=== PATIENT | male | born 1950 | race Caucasian/White ===

== ENCOUNTER 2016-07-30 09:40 | Outpatient (CLI) | payer MEDICARE, OTHER | END 2016-07-30 09:41 | DX: K74.60 Unspecified cirrhosis of liver (principal) ==

== ENCOUNTER 2016-08-14 10:53 | Outpatient (CLI) | payer MEDICARE, OTHER | END 2016-08-14 10:54 | disposition home or self-care (01) | DX: K70.30 Alcoholic cirrhosis of liver without ascites (principal); E78.9 Disorder of lipoprotein metabolism, unspecified; I10 Essential (primary) hypertension ==

== ENCOUNTER 2016-08-15 17:01 | Outpatient (CLI) | payer MEDICARE, OTHER ==
[2016-08-15] MEDS ORDERED: IOPAMIDOL-300 100 ML VIAL IVP ONE (17:58)
[2016-08-15] MEDS ORDERED: IOPAMIDOL-300 50 ML VIAL PO ONE (17:58)
== END 2016-08-15 17:02 | disposition home or self-care (01) ==
DX: K70.30 Alcoholic cirrhosis of liver without ascites (principal); R16.1 Splenomegaly, not elsewhere classified; K80.20 Calculus of gallbladder without cholecystitis without obstruction; K55.1 Chronic vascular disorders of intestine
CPT/HCPCS: 74178; Q9967

== ENCOUNTER 2016-10-29 07:54 | Outpatient (CLI) | payer MEDICARE, OTHER ==
[2016-10-29 12:48] LABS: INR 1.7 (0.8-1.2); PT - PROTHROMBIN TIME 18.7 secs (9.9-12.6)
[2016-10-29 12:57] LABS: BASOPHILS % (AUTO) 0.8 %; EOSINOPHILS % (AUTO) 2.3 %; HCT - HEMATOCRIT 33.4 % (42.0-52.0); HGB - HEMOGLOBIN 10.8 g/dL (14.0-18.0); LYMPHOCYTES % (AUTO) 23.8 %; MEAN CORPUSCULAR HEMOGLOBIN 23.4 pg (27.0-31.0); MEAN CORPUSCULAR HGB CONC 32.2 g/dL (32.0-36.0); MEAN CORPUSCULAR VOLUME 72.8 fL (80.0-94.0); MEAN PLATELET VOLUME 8.1 fL (7.4-11.4); MONOCYTES % (AUTO) 6.6 %; NEUTROPHILS % (AUTO) 66.5 %; RED BLOOD COUNT 4.59 10^6/uL (4.70-6.10); RED CELL DISTRIBUTION WIDTH 31.5 % (12.0-15.0); UNCORRECTED WHITE BLOOD COUNT 2.8 x10^3/uL; WHITE BLOOD COUNT 2.8 x10^3/uL (4.8-10.8)
[2016-10-29 13:33] LABS: ALBUMIN/GLOBULIN RATIO 0.8 (1.0-2.2); BILIRUBIN,TOTAL 3.7 mg/dL (0.2-1.0); BUN - BLOOD UREA NITROGEN 7 mg/dL (6-20); CALCIUM 8.4 mg/dL (8.5-10.3); CARBON DIOXIDE - CO2 24 mmol/L (21-32); CHLORIDE 105 mmol/L (101-111); CHOL/HDL RATIO 4.3 (<5.0); CHOLESTEROL 115 mg/dL; CREATININE 0.7 mg/dL (0.6-1.2); GFR - MDRD 114 (>89); GLUCOSE 90 mg/dL (70-100); HDL CHOLESTEROL 27 mg/dL; LDL/HDL RATIO 2.7 (<3.6); POTASSIUM 2.8 mmol/L (3.5-5.0); SODIUM 136 mmol/L (135-145); TOTAL PROTEIN 6.2 g/dL (6.7-8.2); TRIGLYCERIDES 73 mg/dL; VLDL CHOLESTEROL 15 mg/dL
[2016-10-29 14:23] LABS: BAND NEUTROPHILS % (MANUAL) 1 %; LYMPHOCYTES % (MANUAL) 22 %; NEUTROPHILS % (MANUAL) 77 %; TOTAL CELLS COUNTED 100
[2016-10-29 14:27] LABS: NP AUTO DIFFERENTIAL? YES; NP MAN DIFFERENTIAL? NO; PLATELET ESTIMATE, MANUAL DECREASED (<130,000) (NORMAL); PLATELET MORPHOLOGY NORMAL APPEARANCE (NORMAL)
== END 2016-10-29 07:55 | disposition home or self-care (01) ==
LOC: LAB.WCP 07:54
PROVIDERS: ATTEND Physician Assistant Medical
DX: K70.30 Alcoholic cirrhosis of liver without ascites (principal)
CPT/HCPCS: 36415; 80053; 80061; 82140; 85025; 85610

== ENCOUNTER 2016-11-12 15:35 | Outpatient (CLI) | payer MEDICARE, OTHER | END 2016-11-12 15:36 | disposition home or self-care (01) | LOC: LAB 15:35 | PROVIDERS: ATTEND Physician Assistant Medical | DX: K70.30 Alcoholic cirrhosis of liver without ascites (principal) | CPT/HCPCS: 36415; 82140 ==

== ENCOUNTER 2016-12-30 14:15 | Outpatient (CLI) | payer MEDICARE, OTHER ==
[2016-12-30 20:04] LABS: ALBUMIN/GLOBULIN RATIO 0.8 (1.0-2.2); BILIRUBIN,TOTAL 2.7 mg/dL (0.2-1.0); CALCIUM 8.5 mg/dL (8.5-10.3); CREATININE 0.8 mg/dL (0.6-1.2); POTASSIUM 4.2 mmol/L (3.5-5.0); TOTAL PROTEIN 5.9 g/dL (6.7-8.2)
== END 2016-12-30 14:16 | disposition home or self-care (01) ==
LOC: LAB.WCP 14:15
PROVIDERS: ATTEND Physician Assistant Medical
DX: K70.30 Alcoholic cirrhosis of liver without ascites (principal)
CPT/HCPCS: 36415; 80053

== ENCOUNTER 2017-01-01 10:28 | Day surgery (SDC) | payer MEDICARE, OTHER ==
[~2017-01-01 10:28] MED LIST: CYCLOPENTOLATE 1% OPHTH DROPS 2 ML ONE; KETOROLAC 0.45% OPHTH DROPS ONE; PHENYLEPHRINE 2.5% OPHTH 2 ML DROPS ONE; PROPARACAINE 0.5% OPHTH DROPS 15 ML ONE
[2017-01-01] MEDS ORDERED: CYCLOPENTOLATE 1% OPHTH DROPS 2 ML OPTH ONE (11:35)
[2017-01-01] MEDS ORDERED: PHENYLEPHRINE 2.5% OPHTH 2 ML DROPS OPTH ONE (11:35)
[2017-01-01] MEDS ORDERED: KETOROLAC 0.45% OPHTH DROPS OPTH ONE (11:35)
[2017-01-01] MEDS ORDERED: PROPARACAINE 0.5% OPHTH DROPS 15 ML OPTH ONE ×2 (11:35→12:10)
[2017-01-01] MEDS ORDERED: LACTATED RINGERS 500 ML IV ONE (11:36)
[2017-01-01] MEDS ORDERED: CHONDR SULF/HYALURONATE SYRINGE IO ONE (12:20)
[2017-01-01] MEDS ORDERED: MIDAZOLAM 2 MG/2 ML VIAL IVP ONE (12:20)
[2017-01-01] MEDS ORDERED: TIMOLOL 0.5% OPHTH DROPS OPTH ONE (12:20)
[2017-01-01] MEDS ORDERED: EPINEPHrine 1 MG/ML AMP IVP ONE (12:20)
[2017-01-01] MEDS ORDERED: BRIMONIDINE 0.2% OPHTH DROPS 5 ML OPTH ONE (12:20)
[2017-01-01] MEDS ORDERED: TRIAMCIN/MOXIFLOX/VANCO 1 ML VIAL IO ONE (12:21)
[2017-01-01] MEDS ORDERED: BSS/LIDOCAINE/EPINEPHRINE 1 ML SYRINGE IO ONE ×2 (12:21)
--- NOTE | 2017-01-01 12:52 | OPERATIVE REPORT ---
DATE OF SURGERY: 01/01/2017 00:00:00 PREOPERATIVE DIAGNOSIS: Visually significant cataract, right eye. This was his first cataract surgery. POSTOPERATIVE DIAGNOSIS: Visually significant cataract, right eye. This was his first cataract surgery. NAME OF PROCEDURE: Phacoemulsification with posterior chamber intraocular lens implant, right eye. SURGEON: Terrance Wallace MD ANESTHESIA: Monitored anesthesia care. COMPLICATIONS: None. OPERATIVE INDICATIONS: This is a 66-year-old man with progressive vision loss in the right eye due to 4+ nuclear sclerotic cataract. Best corrected visual acuity was 20/50 with glare to 20/250 in the right eye. 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 He was consented at length concerning the risks and benefits of cataract surgery after which he expressed a desire to proceed with surgery. OPERATIVE PROCEDURE: The patient was taken into OR #2 and placed under monitored anesthesia care. A surgical time-out was conducted confirming correct patient, correct procedure and correct surgical site. He was given topical anesthesia and then prepped and draped in the usual sterile fashion. The eye was entered at the 12 and 9 o'clock positions. Intracameral Shugarcaine was injected into the anterior chamber followed by Viscoat. A continuous tear curvilinear capsulorrhexis was performed. The nucleus was hydrodissected and phacoemulsified. This was a very hard nucleus and a lot of chopping and phaco power was required to break it up. Cortex was evacuated using automated infusion and aspiration. Provisc was injected into the capsular bag and a 19.0 diopter intraocular lens was inserted into the bag. Approximately 0.8 mL of a mixture of triamcinolone, moxifloxacin and vancomycin was injected subconjunctivally in the superior quadrant for infection and inflammation prophylaxis. I/A was used to evacuate the viscoelastic materials. The eye was inflated to physiologic pressure using balanced salt solution and found to be watertight. The patient was taken from the operating room in good condition and given postoperative instructions. JOB #: [id number] EXT JOB #:[id number] MTDDinah
[2017-01-01 13:05] VITALS: BP 137/57
== END 2017-01-01 10:29 | disposition home or self-care (01) ==
LOC: SDS 10:28
PROVIDERS: ATTEND Ophthalmology
PROC: 08RJ3JZ Replacement of Right Lens with Synthetic Substitute, Percutaneous Approach (ICD-10-PCS; principal; 2017-01-01 11:30)
DX: H25.11 Age-related nuclear cataract, right eye (principal); I10 Essential (primary) hypertension
CPT/HCPCS: 66984; A9270; J3490; V2632

== ENCOUNTER 2017-01-22 08:08 | Day surgery (SDC) | payer MEDICARE, OTHER ==
[2017-01-22] MEDS ORDERED: PROPARACAINE 0.5% OPHTH DROPS 15 ML OPTH ONE ×2 (08:30→08:54)
[2017-01-22] MEDS ORDERED: KETOROLAC 0.45% OPHTH DROPS OPTH ONE (08:30)
[2017-01-22] MEDS ORDERED: PHENYLEPHRINE 2.5% OPHTH 2 ML DROPS OPTH ONE (08:30)
[2017-01-22] MEDS ORDERED: CYCLOPENTOLATE 1% OPHTH DROPS 2 ML OPTH ONE (08:30)
[2017-01-22] MEDS ORDERED: LACTATED RINGERS 500 ML IV ONE (08:35)
[2017-01-22] MEDS ORDERED: EPINEPHrine 1 MG/ML AMP IVP ONE (08:53)
[2017-01-22] MEDS ORDERED: BRIMONIDINE 0.2% OPHTH DROPS 5 ML OPTH ONE (08:53)
[2017-01-22] MEDS ORDERED: CHONDR SULF/HYALURONATE SYRINGE IO ONE (08:54)
[2017-01-22] MEDS ORDERED: TIMOLOL 0.5% OPHTH DROPS OPTH ONE (08:54)
[2017-01-22] MEDS ORDERED: TRIAMCIN/MOXIFLOX/VANCO 1 ML VIAL IO ONE ×2 (08:54)
[2017-01-22] MEDS ORDERED: BSS/LIDOCAINE/EPINEPHRINE 1 ML SYRINGE IO ONE ×2 (08:54)
[2017-01-22] MEDS ORDERED: MIDAZOLAM 2 MG/2 ML VIAL IVP ONE (08:55)
[2017-01-22 09:35] VITALS: BP 117/46
--- NOTE | 2017-01-22 09:46 | OPERATIVE REPORT ---
DATE OF SURGERY: 01/22/2017 00:00:00 PREOPERATIVE DIAGNOSIS: Visually significant cataract, left eye. Cataract surgery was performed on the right eye on 01/01/2017. POSTOPERATIVE DIAGNOSIS: Visually significant cataract, left eye. Cataract surgery was performed on the right eye on 01/01/2017. NAME OF PROCEDURE: Phacoemulsification posterior chamber intraocular lens implant, left eye. SURGEON: Terrance Wallace MD. ANESTHESIA: Monitored anesthesia care. COMPLICATIONS: None. OPERATIVE INDICATIONS: This is a 67-year-old man with progressive vision loss in the left eye due to 4+ nuclear sclerotic cataract. Best corrected visual acuity was 20/70 with glare to 20/250 in the left eye. INDICATIONS FOR SURGERY: Overall decrease in vision, difficulty seeing words on a computer screen, difficulty reading, difficulty seeing words and game scores on TV, difficulty driving in low light or at night, difficulty driving at night because of head lights from motor vehicles and difficulty with glare or bright lights in any situation. He was consented at length concerning the risks and benefits of cataract surgery, after which he expressed a desire to proceed with surgery. OPERATIVE PROCEDURE: The patient was taken into OR #2 and placed under monitored anesthesia care. A surgical time-out was conducted confirming the correct patient, correct procedure and correct surgical site. He was given topical anesthesia and then prepped and draped in the usual sterile fashion. The eye was entered at the 6- and 3 o'clock positions. Intracameral Shugarcaine was injected into the anterior chamber followed by Viscoat. A continuous tear curvilinear capsulorrhexis was performed. The nucleus was hydrodissected and phacoemulsified. The cortex was evacuated using automated infusion and aspiration (I/A). Provisc was injected into the capsular bag and a 19.5 diopter intraocular lens inserted into the bag. Approximately 0.7 mL of a mixture of triamcinolone, moxifloxacin, and vancomycin was injected subconjunctivally in the superior quadrant for infection and inflammation prophylaxis. I/A was used to evacuate the viscoelastic materials. The eye was inflated to a physiologic pressure using balanced salt solution and found to be watertight. The patient was taken from the operating room in good condition and given postoperative instructions. JOB #: [id number] EXT JOB #:[id number] RONIT
== END 2017-01-22 08:09 | disposition home or self-care (01) ==
LOC: SDS 08:08
PROVIDERS: ATTEND Ophthalmology
PROC: 08RK3JZ Replacement of Left Lens with Synthetic Substitute, Percutaneous Approach (ICD-10-PCS; principal; 2017-01-22 08:30)
DX: H25.12 Age-related nuclear cataract, left eye (principal); K70.30 Alcoholic cirrhosis of liver without ascites
CPT/HCPCS: 66984; A9270; J3490; V2632

== ENCOUNTER 2017-01-22 09:41 | Outpatient (CLI) | payer MEDICARE, OTHER | END 2017-01-22 09:42 | disposition home or self-care (01) | LOC: LAB 09:41 | PROVIDERS: ATTEND Physician Assistant Medical | DX: K70.30 Alcoholic cirrhosis of liver without ascites (principal) | CPT/HCPCS: 36415; 82140 ==

== ENCOUNTER 2017-01-23 11:46 | Outpatient (CLI) | payer MEDICARE, OTHER ==
[2017-01-23 19:49] LABS: BASOPHILS % (AUTO) 0.4 %; EOSINOPHILS % (AUTO) 0.8 %; HCT - HEMATOCRIT 31.3 % (42.0-52.0); HGB - HEMOGLOBIN 10.8 g/dL (14.0-18.0); LYMPHOCYTES # (AUTO) 0.7 10^3/uL (1.5-3.5); MEAN CORPUSCULAR HEMOGLOBIN 29.2 pg (27.0-31.0); MEAN CORPUSCULAR HGB CONC 34.6 g/dL (32.0-36.0); MEAN CORPUSCULAR VOLUME 84.4 fL (80.0-94.0); MEAN PLATELET VOLUME 7.7 fL (7.4-11.4); MONOCYTES # (AUTO) 0.4 10^3/uL (0.0-1.0); MONOCYTES % (AUTO) 7.1 %; NEUTROPHILS # (AUTO) 4.9 10^3/uL (1.5-6.6); NEUTROPHILS % (AUTO) 80.7 %; NUCLEATED RED BLOOD CELLS AUTO 0.1 /100WBC; RED BLOOD COUNT 3.71 10^6/uL (4.70-6.10); UNCORRECTED WHITE BLOOD COUNT 6.1 x10^3/uL; WHITE BLOOD COUNT 6.1 x10^3/uL (4.8-10.8)
[2017-01-23 19:50] LABS: INR 1.6 (0.8-1.2); PT - PROTHROMBIN TIME 17.6 secs (9.9-12.6)
[2017-01-23 20:29] LABS: ALBUMIN/GLOBULIN RATIO 0.9 (1.0-2.2); BILIRUBIN,TOTAL 3.6 mg/dL (0.2-1.0); CALCIUM 9.4 mg/dL (8.5-10.3); CREATININE 0.9 mg/dL (0.6-1.2)
== END 2017-01-23 11:47 | disposition home or self-care (01) ==
LOC: LAB.WCP 11:46
PROVIDERS: ATTEND Family Medicine
DX: K70.30 Alcoholic cirrhosis of liver without ascites (principal)
CPT/HCPCS: 36415; 80053; 85025; 85610

== ENCOUNTER 2017-02-01 09:24 | Inpatient (IN) | payer MEDICARE, OTHER ==
--- NOTE | 2017-02-01 10:14 | ED Physician Documentation ---
History of Present Illness - Stated complaint Stated Complaint: ALOC - Chief complaint Chief Complaint: Neuro - History obtained from History obtained from: Patient, Family - History of Present Illness Timing: How many days ago (4) - Additonal information Additional information: 67-year-old male with alcoholic cirrhosis has developed increased confusion over the last 4 days. His states that he has been combative and the couple are homeless living in a van and she is having trouble continuing to take care of him in his state.He has refused lactulose and the did get a prescription for Xifaxan from [facility] but this has not been filled as yet. Review of Systems Constitutional: denies: Fever, Chills, Myalgias, Fatigue Eyes: denies: Decreased vision Ears: denies: Ear pain Nose: denies: Rhinorrhea / runny nose, Congestion, Foreign Body Throat: denies: Dental pain / toothache, Sore throat Cardiac: denies: Chest pain / pressure, Palpitations Respiratory: reports: Cough. denies: Dyspnea, Wheezing GI: reports: Abdominal Swelling, Diarrhea. denies: Abdominal Pain, Nausea, Vomiting : denies: Dysuria, Frequency Skin: denies: Rash Musculoskeletal: reports: Back pain. denies: Neck pain, Extremity pain Neurologic: denies: Generalized weakness, Focal weakness, Numbness PD PAST MEDICAL HISTORY - Past Medical History Cardiovascular: Congestive heart failure, Hypertension Respiratory: None Endocrine/Autoimmune: Other GI: Cirrhosis : None HEENT: Chronic vision loss, Chronic hearing loss Psych: None Musculoskeletal: None Derm: Other - Past Surgical History General: Colonoscopy HEENT: Cataracts - Present Medications Home Medications: Ambulatory Orders Medication Instructions Recorded Confirmed diphenhydrAMINE [Benadryl] 25 mg PO Q4-6H PRN 12/14/13 02/01/17 Codeine Sulfate 15 mg PO BID 01/01/17 02/01/17 Spironolact/Hydrochlorothiazid 25 mg PO BID 01/01/17 02/01/17 [Spironolactone-Hctz 25-25 Tab] Furosemide [Lasix] 40 mg PO BID 02/01/17 02/01/17 Losartan [Cozaar] 50 mg PO DAILY PM 02/01/17 02/01/17 Omeprazole 40 mg PO BID 02/01/17 02/01/17 rifAXIMin [Xifaxan] 550 mg PO BID 02/01/17 02/01/17 - Allergies Allergies/Adverse Reactions: Allergies Allergy/AdvReac Type Severity Reaction Status Date / Time levetiracetam [From Keppra] Allergy Unknown Verified 02/01/17 09:59 palifermin [From Kepivance] Allergy Unknown Verified 02/01/17 09:59 PD ED PE NORMAL - Vitals Vital signs reviewed: Yes (Tachycardic) - General General: No acute distress, Well developed/nourished - HEENT HEENT: Atraumatic, PERRL, EOMI - Neck Neck: Supple, no meningeal sign, No bony TTP - Cardiac Cardiac: No murmur, Other (Tachycardia to 100) - Respiratory Respiratory: No respiratory distress, Clear bilaterally - Abdomen Abdomen: Soft, Non tender - Back Back: No CVA TTP, No spinal TTP - Derm Derm: Warm and dry, No rash, Other (Deep hinson to the skin) - Extremities Extremities: No deformity, Other - Neuro Neuro: No motor deficit, No sensory deficit (There is edema bilaterally trace.) , Other (There is a liver flap present.) - Psych Psych: Normal mood, Normal affect Results - Vitals Vitals: Vital Signs - 24 hr 02/01/17 02/01/17 09:27 11:00 Temperature 36.4 C L Heart Rate 104 H 91 Respiratory 20 14 Rate Blood Pressure 108/53 L O2 Saturation 100 99 Oxygen O2 Source Room air - Labs Labs: Laboratory Tests 02/01/17 02/01/17 02/01/17 09:45 09:45 09:45 WBC 7.4 RBC 3.67 L Hgb 11.0 L Hct 29.9 L MCV 81.4 MCH 29.9 MCHC 36.7 H RDW 16.9 H Plt Count 93 L MPV 6.8 L Neut # 6.1 Lymph # 0.8 L [place] # 0.5 Eos # 0.0 Baso # 0.0 Absolute Nucleated RBC 0.00 Nucleated RBCs 0.0 PT INR Sodium 126 L Potassium 3.7 Chloride 94 L Carbon Dioxide 19 L Anion Gap 13.0 BUN 20 Creatinine 1.0 Estimated GFR (MDRD) 75 L Glucose 127 H Calcium 9.5 Total Bilirubin 4.5 H AST 69 H ALT 24 Alkaline Phosphatase 27 L Ammonia 53.3 H Troponin I Total Protein 7.8 Albumin 3.7 Globulin 4.1 Albumin/Globulin Ratio 0.9 L Lipase 34 Ethyl Alcohol 02/01/17 02/01/17 02/01/17 09:45 09:45 09:45 WBC RBC Hgb Hct MCV MCH MCHC RDW Plt Count MPV Neut # Lymph # [place] # Eos # Baso # Absolute Nucleated RBC Nucleated RBCs PT 17.0 H INR 1.5 H Sodium Potassium Chloride Carbon Dioxide Anion Gap BUN Creatinine Estimated GFR (MDRD) Glucose Calcium Total Bilirubin AST ALT Alkaline Phosphatase Ammonia Troponin I < 0.04 Total Protein Albumin Globulin Albumin/Globulin Ratio Lipase Ethyl Alcohol < 5.0 - Rads (name of study) 2 view chest Radiology: Prelim report reviewed (Impression: 1. Interval increase in airspace opacity in the right lower lobe medially without dense focal consolidation. Atelectasis or infiltrate or other causes including infection could have this appearance.2. No other change.), EMP read indepedently, See rad report Procedures - IVC sono (time) 0950 Bedside IVC sono: IVC measures (cm) (1.32), Dehydration (mild) PD MEDICAL DECISION MAKING - ED course Complexity details: reviewed old records, reviewed results, re-evaluated patient , considered differential, d/w patient, d/w family ED course: 67-year-old male with alcoholic cirrhosis is having confusion and on initial presentation appears likely to have hepatic encephalopathy. The patient has had a persistent cough for the past 5 weeks. He has been noncompliant with his lactulose and a script for xifaxin has not been filled. He and his are living in their van with their dog and they have not been able to find a place that will take their dog. The notes she is chronically ill and on disability and she is not able to care for him in his current state. She indicates that he was worse 2 weeks ago when he went in to the doctors office with his pants down to his knees. He is complaining of a cough persistent for the past 5 weeks. On exam the patient is mildly confused, he is hyponatremic and has an infiltrate on his chest x-ray. I have asked the social services to assist in his care and I have asked the hospitalist to treat the patient with acute confusion. Here in the ED he is given a dose of lactulose and IV banana bag. Departure - Departure Disposition: 66 [facility] DC/Xfer Clinical Impression: Hepatic encephalopathy, Hyponatremia Pneumonia Qualifiers: Pneumonia type: due to unspecified organism Laterality: right Lung location: lower lobe of lung Qualified Code(s): J18.1 - Lobar pneumonia, unspecified organism
[2017-02-01 10:17] LABS: ALBUMIN/GLOBULIN RATIO 0.9 (1.0-2.2); BILIRUBIN,TOTAL 4.5 mg/dL (0.2-1.0); CALCIUM 9.5 mg/dL (8.5-10.3); POTASSIUM 3.7 mmol/L (3.5-5.0); TOTAL PROTEIN 7.8 g/dL (6.7-8.2)
[2017-02-01] MEDS ORDERED: MAGNESIUM SULFATE 2 GRAM 50 ML IV STA (10:18)
[2017-02-01] MEDS ORDERED: THIAMINE INJ 100 MG, FOLIC ACID INJ 1 MG in SODIUM CHLORIDE 0.9% 100ML 100 ML IV STA (10:18)
[2017-02-01] MEDS ORDERED: MULTIVITAMIN 10 ML in SODIUM CHLORIDE 0.9% 1,000 ML IV STA (10:18)
[2017-02-01 10:35] LABS: BASOPHILS % (AUTO) 0.2 %; EOSINOPHILS % (AUTO) 0.5 %; HCT - HEMATOCRIT 29.9 % (42.0-52.0); LYMPHOCYTES # (AUTO) 0.8 10^3/uL (1.5-3.5); LYMPHOCYTES % (AUTO) 10.5 %; MEAN CORPUSCULAR HEMOGLOBIN 29.9 pg (27.0-31.0); MEAN CORPUSCULAR HGB CONC 36.7 g/dL (32.0-36.0); MEAN CORPUSCULAR VOLUME 81.4 fL (80.0-94.0); MEAN PLATELET VOLUME 6.8 fL (7.4-11.4); MONOCYTES # (AUTO) 0.5 10^3/uL (0.0-1.0); MONOCYTES % (AUTO) 6.9 %; NEUTROPHILS # (AUTO) 6.1 10^3/uL (1.5-6.6); NEUTROPHILS % (AUTO) 81.9 %; RED BLOOD COUNT 3.67 10^6/uL (4.70-6.10); RED CELL DISTRIBUTION WIDTH 16.9 % (12.0-15.0); UNCORRECTED WHITE BLOOD COUNT 7.4 x10^3/uL; WHITE BLOOD COUNT 7.4 x10^3/uL (4.8-10.8)
[2017-02-01 10:43] LABS: INR 1.5 (0.8-1.2)
[2017-02-01] MEDS ORDERED: MAGNESIUM SULFATE 2 GRAM 50 ML IV ONE (11:06)
--- NOTE | 2017-02-01 11:17 | XRAY Preliminary Report ---
Exam: XR Chest 2 View PA/LAT IMPRESSION: 1. Interval increase in airspace opacity in the right lower lobe medially without dense focal consoli dation. Atelectasis or infiltrate of other causes including infection could have this appearance. 2. No other change. [facility] SITE ID: [id number]
--- NOTE | 2017-02-01 11:20 | XRAY Report ---
EXAM: CHEST RADIOGRAPHY EXAM DATE: 02/01/2017 10:41 AM. CLINICAL HISTORY: Persistent cough. COMPARISON: 11/28/2016. TECHNIQUE: 2 views. FINDINGS: Lungs/Pleura: Focal increased opacity in the right infrahilar region medially on frontal projection e xam and posterior on the lateral view. No loss of diaphragmatic or cardiac silhouette. No dense conso lidation. No pleural effusion. Lungs otherwise clear. Mediastinum: Heart and mediastinal contours are unremarkable. Other: None. IMPRESSION: 1. Interval increase in airspace opacity in the right lower lobe medially without dense focal consoli dation. Atelectasis or infiltrate of other causes including infection could have this appearance. 2. No other change. [facility] Referring Provider Line: [phone] SITE ID: [id number]
[2017-02-01] MEDS ORDERED: LACTULOSE 10 GM /15 ML UDC PO STA (11:27)
[2017-02-01] MEDS ORDERED: ONDANSETRON 4 MG/2 ML VIAL IVP PRN (12:23)
[2017-02-01] MEDS ORDERED: SODIUM CHLORIDE FLUSH 0.9% 10 ML SYRINGE IVP PRN (12:23)
[2017-02-01] MEDS ORDERED: diphenhydrAMINE 25 MG CAPSULE PO PRN (12:33)
[2017-02-01] MEDS ORDERED: LACTULOSE 10 GM /15 ML UDC ONE (12:41)
[2017-02-01] MEDS ORDERED: LACTULOSE 10 GM /15 ML UDC PO SCH (13:00)
[2017-02-01] MEDS ORDERED: cefTRIAXone 1 GM VIAL IVP SCH (13:00)
[2017-02-01] MEDS ORDERED: AZITHROMYCIN INJ 500 MG in SODIUM CHLORIDE 0.9% 250 ML IV SCH (14:00)
[2017-02-01] MEDS ORDERED: SODIUM CHLORIDE 0.9% 0 ML IV ONE (14:05)
[2017-02-01] MEDS: SODIUM CHLORIDE FLUSH 0.9% 10 ML SYRINGE IVP SCH ×2 (14:08→20:26)
--- NOTE | 2017-02-01 14:23 | HISTORY & PHYSICAL EXAMINATION ---
Chief Complaint - Chief Complaint Chief Complaint: altered mental status History of Present Illness - Admitted From Admitted From:: emergence department - History Obtained From History obtained from: patient and his - History of Present Illness HPI Comment/Other: This is a 67-year-old male with a past medical history significant for alcoholic cirrhosis, congestive heart failure, HTN, chronic vision loss and chronic hearing loss, who present emergence department for evaluation of altered mental status. Patient is a poor historian and some confusion due to his medical status. Per patient's report patient has been increasing confusion over the last four days. Patient has also had a persistent cough for the past couple weeks. Denies fever, chill, night sweating, loss of weight. Patient had cataract surgery on 12/27/16, since that time, patient did not take any Lactulose and Xifaxin, However on 12/27/16, patient's ammonia lever is 82, today patient's ammonia level is 53.3, per patient's report. Patient's report she and patient are homeless and live a Van, she has chronic illness and on disability. She is not able to take care for him at her current condition. In today lab test, pt has Na 126, total Bilirubin 4.5, Ammonia 53.3, PT/INR 17/ 1.5, HGB 11, Plt93. CXR reveals interval increase in airspace opacity in the right lower lobe, the appearance is as infiltrate Review of Systems - Constitutional Constitutional: denies: Fever, Chills, Poor appetite, Diaphoresis, Night sweats , Weight loss - Eyes Eyes: denies: Pain, Irritation, Amaurosis, Spots in vision, Field loss, Vision loss - Ears, Nose & Throat Ears, Nose & Throat: denies: Ear pain, Hearing loss, Hearing aids, Tinnitus, Vertigo, Nasal discharge, Nosebleeds, Sore throat, Bleeding gums - Cardiovascular Cariovascular: denies: Irregular heart rate, Palpitations, Chest pain, Edema, Syncope, Exertional dyspnea - Respiratory Respiratory: reports: Cough. denies: Sputum production, Wheezing, Hemoptysis, Orthopnea, SOB at rest, SOB with exertion - Gastrointestinal Gastrointestinal: denies: Abdominal pain, Constipation, Diarrhea, Change in bowel habits, Rectal bleeding, Black stools, Bloody stools, Nausea, Vomiting, Coffee grounds emesis, Bloating - Genitourinary Genitourinary: denies: Dysuria, Frequency, Urgency, Hematuria, Incontinence, Nocturia - Musculoskeletal Musculoskeletal: denies: Muscle pain, Back pain, Muscle aches, Stiffness, Limited range of motion, Muscle weakness, Joint pain - Integumentary Integumentary: denies: Rash, Pruritis, Lesions, Dryness, Acne, Pigment changes - Neurological Neurological: denies: Focal weakness, Headache, Dizziness, Numbness, Memory problems, Pre-existing deficit, Abnormal gait, Seizures, Incoordination, Slurred speech - Psychiatric Psychiatric: denies: Depression, Anxiety, Suicidal, Delusions, Hallucinations, Homicidal - Endocrine Endocrine: denies: Polyuria, Polydypsia, Polyphagia - Hematologic/Lymphatic Hematologic/Lymphatic: denies: Anemia, Bruising, Petechiae, Blood clots, Lymphadenopathy, Bleeding tendencies, Recurrent infections History - Past Medical History Cardiovascular: reports: Congestive heart failure, Hypertension Respiratory: reports: None Neuro: reports: Other Endocrine/Autoimmune: reports: Other GI: reports: Cirrhosis : reports: None HEENT: reports: Chronic vision loss, Chronic hearing loss Psych: reports: None Musculoskeletal: reports: None Derm: reports: Other MRSA Hx?: No - Past Surgical History General: reports: Colonoscopy HEENT: reports: Cataracts - Family & Social History Social History Notes: pt denies recent alcohol drinking, denies smok and ilicit drug abuse - Substance History Use: Uses substance without health or social issues: NONE Abuse: Recurrent use of substance despite neg consequences: NONE Dependence: Experiences withdrawal or developed tolerances: NONE - POLST Patient has POLST: No POLST Status: Full Code (pt report he want to be full code.) Meds/Allgy - Home Medications Home Medications: Ambulatory Orders Medication Instructions Recorded Confirmed diphenhydrAMINE [Benadryl] 25 mg PO Q6H PRN 12/14/13 02/01/17 Codeine Sulfate 15 mg PO BID 01/01/17 02/01/17 Spironolact/Hydrochlorothiazid 50 mg PO BID 01/01/17 02/01/17 [Spironolactone-Hctz 25-25 Tab] Furosemide [Lasix] 20 mg PO BID 02/01/17 02/01/17 Losartan [Cozaar] 50 mg PO DAILY PM 02/01/17 02/01/17 Omeprazole 20 mg PO BID 02/01/17 02/01/17 rifAXIMin [Xifaxan] 550 mg PO BID 02/01/17 02/01/17 - Allergies Allergies/Adverse Reactions: Allergies Allergy/AdvReac Type Severity Reaction Status Date / Time levetiracetam [From Keppra] Allergy Unknown Verified 02/01/17 09:59 palifermin [From Kepivance] Allergy Unknown Verified 02/01/17 09:59 Exam - Vital Signs Reviewed Vital Signs: Yes Vital Signs: Vital Signs x48h Temp Pulse Pulse Resp BP BP Pulse Ox 02/01/17 13:22 36.6 C 99 19 132/71 H 100 02/01/17 12:49 87 16 111/57 L 97 - Physical Exam General Appearance: positive: No acute distress, Alert. negative: Lethargic Eyes Bilateral: positive: Normal inspection, PERRL, No lid inflammation, Conjunctivae nml ENT: positive: ENT inspection nml, Pharynx nml, No signs of dehydration. negative: Purulent nasal drainage, Pharyngeal erythema, Oral lesions Neck: positive: Nml inspection, Thyroid nml, No JVD, Trachea midline. negative : Thyromegaly, Lymphadenopathy (R), Lymphadenopathy (L), Stiff neck, Swelling/ bruising, Tracheal deviation Respiratory: positive: Chest non-tender, No respiratory distress, Breath sounds nml. negative: Wheezes, Rales, Rhonchi Cardiovascular: positive: Regular rate & rhythm, No murmur, No gallop. negative : Tachycardia, Bradycardia, Systolic murmur, Diastolic murmur Peripheral Pulses: positive: 2+ Abdomen: positive: Non-tender, No organomegaly, Nml bowel sounds, No distention. negative: Tenderness, Guarding, Rebound Back: positive: Nml inspection. negative: CVA tenderness (R), CVA tenderness (L ) Skin: positive: Color nml, No rash, Warm, Dry. negative: Cyanosis, Diaphoresis , Pallor, Skin rash Extremities: positive: Non-tender, Full ROM, Nml appearance. negative: Calf tenderness, Nate's sign/cords Neurologic/Psychiatric: positive: Sensation nml, Mood/affect nml, Disoriented to place, Disoriented to time. negative: Disoriented to person, Sensory loss, Facial droop, Slurred/abnml speech, Depressed mood/affect Conclusion/Plan - Problem List (1) Altered mental status, unspecified Conclusion/Plan: it appear the complex of facts of acute on chronic hepatic encephalopathy, pneumonia, others chronic medical problem test UDS, B12/ TSH, RPR will consider CT or MRI of head if continue to deteriorate. Neuro check tele, vital monitor hold sedation medications (2) Hepatic encephalopathy Conclusion/Plan: chronic hepatic and alcoholic encephalopathy start lactulose, titrate to void diarrhea daily monitor Ammonia level CMP daily to check liver function (3) Hyponatremia Conclusion/Plan: NaCL 1 gram once, recheck BMP (4) Pneumonia Conclusion/Plan: blood culture two tube, pending it ssem pt had dry cough for couple of week, confused, but no fever, chill, night sweat. CXR reveal infiltration but no cavity. treat with CAP, rocephin and Azithyromycin Qualifiers: Pneumonia type: due to unspecified organism Laterality: right Lung location: lower lobe of lung Qualified Code(s): J18.1 - Lobar pneumonia, unspecified organism (5) Medical non-compliance Conclusion/Plan: educate pt and his family the importance of medical compliance (6) HTN (hypertension) Conclusion/Plan: stable, resume home medication, closely monitor vital, tele (7) History of CHF (congestive heart failure) Conclusion/Plan: stable, resume Lasix, daily lab monitor, tele, vital check (8) DVT prophylaxis Conclusion/Plan: Pt has hepatic encephalopathy, Plt 93, PT/INR 17/1.5. pt is on the high anticoaglation status due to impaired liver function although pt did not have blood thinner SCD only, hold Lovenox or Heparin now - Lab Results Fish Bones: 02/01/17 09:45 02/01/17 09:45 Issues/Core Measures - Anticipated LOS Anticipated Stay Length: 2 or more midnights (based on pt had encephalopathy and pneumonia infection in the nature, two or more nights expected.) - DVT/VTE - Prophylaxis VTE/DVT Device ordered at admit?: Yes VTE/DVT Prophylaxis med ordered at admit?: No
[2017-02-01] MEDS ORDERED: LOSARTAN 50 MG TABLET PO SCH (15:00)
[2017-02-01] MEDS: FAMOTIDINE 20 MG TABLET PO SCH (15:18)
[2017-02-01] MEDS: cefTRIAXone 1 GM VIAL IVP SCH (15:59)
[2017-02-01] MEDS ORDERED: SODIUM CHLORIDE 1 GM TABLET PO SCH (16:00)
[2017-02-01] MEDS: FUROSEMIDE 20 MG TABLET PO SCH (20:25)
[2017-02-01] MEDS: LACTULOSE 10 GM /15 ML UDC PO SCH (20:25)
[2017-02-01] MEDS ORDERED: rifAXIMin 550 MG TABLET PO SCH (21:00)
[2017-02-01] MEDS ORDERED: CODEINE SULFATE PO SCH (21:00)
[2017-02-02] MEDS: SODIUM CHLORIDE FLUSH 0.9% 10 ML SYRINGE IVP SCH ×3 (06:33→20:56)
[2017-02-02 06:40] LABS: BASOPHILS % (AUTO) 0.5 %; EOSINOPHILS # (AUTO) 0.1 10^3/uL (0.0-0.7); EOSINOPHILS % (AUTO) 1.3 %; HCT - HEMATOCRIT 27.3 % (42.0-52.0); HGB - HEMOGLOBIN 9.8 g/dL (14.0-18.0); LYMPHOCYTES # (AUTO) 1.5 10^3/uL (1.5-3.5); LYMPHOCYTES % (AUTO) 26.2 %; MEAN CORPUSCULAR HEMOGLOBIN 29.9 pg (27.0-31.0); MEAN CORPUSCULAR HGB CONC 36.1 g/dL (32.0-36.0); MEAN CORPUSCULAR VOLUME 82.8 fL (80.0-94.0); MEAN PLATELET VOLUME 7.3 fL (7.4-11.4); MONOCYTES # (AUTO) 0.6 10^3/uL (0.0-1.0); MONOCYTES % (AUTO) 11.5 %; NEUTROPHILS # (AUTO) 3.4 10^3/uL (1.5-6.6); NEUTROPHILS % (AUTO) 60.5 %; NUCLEATED RED BLOOD CELLS AUTO 0.1 /100WBC; RED BLOOD COUNT 3.29 10^6/uL (4.70-6.10); RED CELL DISTRIBUTION WIDTH 16.8 % (12.0-15.0); UNCORRECTED WHITE BLOOD COUNT 5.6 x10^3/uL; WHITE BLOOD COUNT 5.6 x10^3/uL (4.8-10.8)
[2017-02-02 06:50] LABS: ALBUMIN/GLOBULIN RATIO 0.9 (1.0-2.2); BILIRUBIN,TOTAL 3.4 mg/dL (0.2-1.0); CALCIUM 8.6 mg/dL (8.5-10.3); CREATININE 0.9 mg/dL (0.6-1.2); MAGNESIUM 1.7 mg/dL (1.7-2.8); TOTAL PROTEIN 6.5 g/dL (6.7-8.2)
[2017-02-02] MEDS: LACTULOSE 10 GM /15 ML UDC PO SCH ×3 (08:12→21:16)
[2017-02-02] MEDS: FUROSEMIDE 20 MG TABLET PO SCH ×2 (08:13→20:56)
[2017-02-02] MEDS: FAMOTIDINE 20 MG TABLET PO SCH (08:13)
[2017-02-02] MEDS: THIAMINE 100 MG TABLET PO SCH (08:13)
[2017-02-02] MEDS: FOLIC ACID 1 MG TABLET PO SCH (08:13)
[2017-02-02] MEDS: POLYETHYLENE GLYCOL 3350 17 GM PACKET PO SCH (08:14)
[2017-02-02] MEDS: cefTRIAXone 1 GM VIAL IVP SCH (08:14)
[2017-02-02] MEDS: rifAXIMin 550 MG TABLET PO SCH ×2 (08:52→20:56)
--- NOTE | 2017-02-02 13:30 | PROVIDER PROGRESS NOTE ---
Subjective - Prog Note Date Prog Note Date: 02/02/17 - Subjective Pt reports feeling: Improved Subjective: pt state he feel better, but pt is still has some confused. Current Medications - Current Medications Current Medications: Active Medications Ceftriaxone Sodium (Rocephin) 1 gm IVP DAILY [facility] Last Admin: 02/02/17 08:14 Dose: 1 gm Docusate Sodium (Colace 250mg Capsule) 250 - 500 mg PO DAILY [facility] Famotidine (Pepcid) 20 mg PO DAILY [facility] Last Admin: 02/02/17 08:13 Dose: 20 mg Folic Acid () 1 mg PO DAILY [facility] Last Admin: 02/02/17 08:13 Dose: 1 mg Furosemide (Lasix) 40 mg PO BID [facility] Last Admin: 02/02/17 08:13 Dose: 40 mg Azithromycin 500 mg/ Sodium (Chloride) 250 mls @ 250 mls/hr IV DAILY@0900 [facility] Lactulose (Enulose) 15 gm PO BID [facility] Last Admin: 02/02/17 08:12 Dose: 15 gm Ondansetron HCl (Zofran Inj) 4 mg IVP Q6HR PRN PRN Reason: Nausea / Vomiting Polyethylene Glycol (Miralax) 17 gm PO DAILY [facility] Last Admin: 02/02/17 08:14 Dose: 17 gm Rifaximin (Xifaxan) 550 mg PO BID [facility] Last Admin: 02/02/17 08:52 Dose: 550 mg Senna (Senokot) 8.6 - 17.2 mg PO DAILY [facility] Sodium Chloride (Normal Saline Flush 0.9%) 10 ml IVP PRN PRN PRN Reason: NEEDED PER PROVIDER ORDERS Sodium Chloride (Normal Saline Flush 0.9%) 10 ml IVP Q8HR [facility] Last Admin: 02/02/17 06:33 Dose: 10 ml Thiamine HCl (Vitamin B-1) 100 mg PO DAILY [facility] Last Admin: 02/02/17 08:13 Dose: 100 mg diphenhydrAMINE [Benadryl] 25 mg PO Q6H PRN 12/14/13 Codeine Sulfate 15 mg PO BID 01/01/17 Spironolact/Hydrochlorothiazid [Spironolactone-Hctz 25-25 Tab] 50 mg PO BID 03/10 Furosemide [Lasix] 20 mg PO BID 02/01/17 Losartan [Cozaar] 50 mg PO DAILY PM 02/01/17 Omeprazole 20 mg PO BID 02/01/17 rifAXIMin [Xifaxan] 550 mg PO BID 02/01/17 Objective - Vital Signs/Intake & Output Reviewed Vital Signs: Yes Vital Signs: Vital Signs x48h Temp Pulse Resp BP Pulse Ox 02/02/17 12:06 36.7 C 76 18 102/49 L 100 02/02/17 08:14 36.6 C 80 18 112/51 L 100 Intake & Output: Intake & Output 01/30/17 01/31/17 02/01/17 02/02/17 23:59 23:59 23:59 23:59 Intake Total 240 590 Output Total 375 1075 Balance -135 -485 - Objective General Appearance: positive: No acute distress, Alert. negative: Lethargic Eyes Bilateral: positive: Normal inspection, PERRL, No lid inflammation, Conjunctivae nml ENT: positive: ENT inspection nml, Pharynx nml, No signs of dehydration. negative: Purulent nasal drainage, Pharyngeal erythema, Oral lesions Neck: positive: Nml inspection, Thyroid nml, Trachea midline. negative: Thyromegaly, Lymphadenopathy (R), Lymphadenopathy (L), Stiff neck, Swelling/ bruising, Tracheal deviation Respiratory: positive: Chest non-tender, No respiratory distress, Breath sounds nml. negative: Wheezes, Rales, Rhonchi Cardiovascular: positive: No gallop, Irregularly irregular. negative: Regular rate & rhythm, Tachycardia, Bradycardia, Systolic murmur, Diastolic murmur Peripheral Pulses: 2+ Radial (R), 2+ Radial (L), 2+ Dorsalis pedis (R), 2+ Dorsalis pedis (L) Abdomen: positive: Non-tender, Nml bowel sounds, No distention. negative: Tenderness, Guarding, Rebound Back: positive: Nml inspection. negative: CVA tenderness (R), CVA tenderness (L ) Skin: positive: Color nml, No rash, Warm. negative: Cyanosis, Diaphoresis, Skin rash Extremities: positive: Non-tender, Full ROM, Nml appearance. negative: Calf tenderness, Nate's sign/cords Neurologic/Psychiatric: positive: Motor nml, Sensation nml, Disoriented to person, Disoriented to time. negative: Disoriented to place, Sensory loss, Facial droop, Slurred/abnml speech, Depressed mood/affect - Lab Results Fish Bones: 02/02/17 06:02 02/02/17 06:02 Other Labs: Lab Results x24hrs 02/02/17 02/02/17 02/02/17 Range/Units 06:30 06:30 06:02 WBC (4.8-10.8) x10^3/uL RBC (4.70-6.10) 10^6/uL Hgb (14.0-18.0) g/dL Hct (42.0-52.0) % MCV (80.0-94.0) fL MCH (27.0-31.0) pg MCHC (32.0-36.0) g/dL RDW (12.0-15.0) % Plt Count (130-450) 10^3/uL MPV (7.4-11.4) fL Neut # (1.5-6.6) 10^3/uL Lymph # (1.5-3.5) 10^3/uL [place] # (0.0-1.0) 10^3/uL Eos # (0.0-0.7) 10^3/uL Baso # (0.0-0.1) 10^3/uL Absolute Nucleated RBC x10^3/uL Nucleated RBCs /100WBC Sodium (135-145) mmol/L Potassium (3.5-5.0) mmol/L Chloride (101-111) mmol/L Carbon Dioxide (21-32) mmol/L Anion Gap (6-13) BUN (6-20) mg/dL Creatinine (0.6-1.2) mg/dL Estimated GFR (MDRD) (>89) Glucose (70-100) mg/dL Calcium (8.5-10.3) mg/dL Magnesium (1.7-2.8) mg/dL Total Bilirubin (0.2-1.0) mg/dL AST (10-42) IU/L ALT (10-60) IU/L Alkaline Phosphatase (42-121) IU/L Ammonia 85.7 H* (7-35) umol/L Total Protein (6.7-8.2) g/dL Albumin (3.2-5.5) g/dL Globulin (2.1-4.2) g/dL Albumin/Globulin Ratio (1.0-2.2) Vitamin B12 1163 H (180-914) pg/mL TSH 5.57 (0.34-5.60) uIU/mL 02/02/17 02/02/17 Range/Units 06:02 06:02 WBC 5.6 (4.8-10.8) x10^3/uL RBC 3.29 L (4.70-6.10) 10^6/uL Hgb 9.8 L (14.0-18.0) g/dL Hct 27.3 L (42.0-52.0) % MCV 82.8 (80.0-94.0) fL MCH 29.9 (27.0-31.0) pg MCHC 36.1 H (32.0-36.0) g/dL RDW 16.8 H (12.0-15.0) % Plt Count 71 L (130-450) 10^3/uL MPV 7.3 L (7.4-11.4) fL Neut # 3.4 (1.5-6.6) 10^3/uL Lymph # 1.5 (1.5-3.5) 10^3/uL [place] # 0.6 (0.0-1.0) 10^3/uL Eos # 0.1 (0.0-0.7) 10^3/uL Baso # 0.0 (0.0-0.1) 10^3/uL Absolute Nucleated RBC 0.01 x10^3/uL Nucleated RBCs 0.1 /100WBC Sodium 130 L (135-145) mmol/L Potassium 4.0 (3.5-5.0) mmol/L Chloride 101 (101-111) mmol/L Carbon Dioxide 19 L (21-32) mmol/L Anion Gap 10.0 (6-13) BUN 20 (6-20) mg/dL Creatinine 0.9 (0.6-1.2) mg/dL Estimated GFR (MDRD) 85 L (>89) Glucose 91 (70-100) mg/dL Calcium 8.6 (8.5-10.3) mg/dL Magnesium 1.7 (1.7-2.8) mg/dL Total Bilirubin 3.4 H (0.2-1.0) mg/dL AST 52 H (10-42) IU/L ALT 22 (10-60) IU/L Alkaline Phosphatase 25 L (42-121) IU/L Ammonia (7-35) umol/L Total Protein 6.5 L (6.7-8.2) g/dL Albumin 3.0 L (3.2-5.5) g/dL Globulin 3.5 (2.1-4.2) g/dL Albumin/Globulin Ratio 0.9 L (1.0-2.2) Vitamin B12 (180-914) pg/mL TSH (0.34-5.60) uIU/mL Assessment/Plan - Problem List (1) Altered mental status, unspecified Impression: (1) Altered mental status, unspecified Conclusion/Plan: pt still has some confused, will check his about pt's baseline pt has elevated ammonia even given Lactulose, which could contribute to pt's current status continue neuro check, tele, vital check, hold sedation medication. TSH level pending, it appear the complex of facts of acute on chronic hepatic encephalopathy, pneumonia, chronic alcoholic problem, others chronic medical problem B12/ TSH, RPR will consider CT or MRI of head if continue to deteriorate. Neuro check tele, vital monitor hold sedation medications (2) Hepatic encephalopathy Conclusion/Plan: pt's told me pt did not take any lactulose and rifaximin at home for about one month, and ammonia level is down from 85 to 53.3 at yesterday test. I start lactulose but pt's ammonia level still went up. increase lactulose dosage, add rifaximin daily check ammonia level, CBC, CMP neuro check chronic hepatic and alcoholic encephalopathy start lactulose, titrate to void diarrhea daily monitor Ammonia level CMP daily to check liver function (3) Hyponatremia Conclusion/Plan: Na level went up continue Nacl 1 gram once NaCL 1 gram once, recheck BMP (4) Pneumonia Conclusion/Plan: continue current treatment, follow up blood culture blood culture two tube, pending it ssem pt had dry cough for couple of week, confused, but no fever, chill, night sweat. CXR reveal infiltration but no cavity. treat with CAP, rocephin and Azithyromycin Qualifiers: Pneumonia type: due to unspecified organism Laterality: right Lung location: lower lobe of lung Qualified Code(s): J18.1 - Lobar pneumonia, unspecified organism (5) Medical non-compliance Conclusion/Plan: educate pt and his family the importance of medical compliance (6) HTN (hypertension) Conclusion/Plan: stable, monitor with vital tele stable, resume home medication, closely monitor vital, tele (7) History of CHF (congestive heart failure) Conclusion/Plan: stable, resume Lasix, daily lab monitor, tele, vital check (4) Pneumonia Qualifiers: Pneumonia type: due to unspecified organism Laterality: right Lung location: lower lobe of lung Qualified Code(s): J18.1 - Lobar pneumonia, unspecified organism
[2017-02-02] MEDS: DOCUSATE SODIUM 250 MG CAPSULE PO SCH (13:49)
[2017-02-02] MEDS: SENNA 8.6 MG TABLET PO SCH (13:49)
[2017-02-02] MEDS: AZITHROMYCIN INJ 500 MG in SODIUM CHLORIDE 0.9% 250 ML IV SCH (16:19)
[2017-02-03 06:15] LABS: EOSINOPHILS # (AUTO) 0.1 10^3/uL (0.0-0.7); EOSINOPHILS % (AUTO) 1.1 %; HCT - HEMATOCRIT 27.3 % (42.0-52.0); HGB - HEMOGLOBIN 9.8 g/dL (14.0-18.0); LYMPHOCYTES # (AUTO) 1.1 10^3/uL (1.5-3.5); MEAN CORPUSCULAR HEMOGLOBIN 29.7 pg (27.0-31.0); MEAN CORPUSCULAR HGB CONC 35.8 g/dL (32.0-36.0); MONOCYTES # (AUTO) 0.5 10^3/uL (0.0-1.0); MONOCYTES % (AUTO) 10.4 %; NEUTROPHILS # (AUTO) 3.1 10^3/uL (1.5-6.6); NEUTROPHILS % (AUTO) 64.5 %; RED BLOOD COUNT 3.29 10^6/uL (4.70-6.10); RED CELL DISTRIBUTION WIDTH 16.8 % (12.0-15.0); UNCORRECTED WHITE BLOOD COUNT 4.8 x10^3/uL; WHITE BLOOD COUNT 4.8 x10^3/uL (4.8-10.8)
[2017-02-03] MEDS: SODIUM CHLORIDE FLUSH 0.9% 10 ML SYRINGE IVP SCH ×3 (06:25→20:41)
[2017-02-03] MEDS: LACTULOSE 10 GM /15 ML UDC PO SCH ×4 (06:25→20:41)
[2017-02-03 06:31] LABS: BILIRUBIN,TOTAL 3.1 mg/dL (0.2-1.0); POTASSIUM 3.7 mmol/L (3.5-5.0); TOTAL PROTEIN 6.5 g/dL (6.7-8.2)
--- NOTE | 2017-02-03 08:14 | PROVIDER PROGRESS NOTE ---
Assessment/Plan - Problem List (1) Hyperphosphatemia Assessment/Plan: acute. will monitor and give binders if necessary. hydration with IVF since patient is not eating or drinking well. (2) Acute hyponatremia Assessment/Plan: acute. will monitor with daily labs. will give IVF NS since patient is not drinking and urine output low. monitor with daily lab draws (3) Increased ammonia level Assessment/Plan: acute on chronic. will increase lactulose and get another ammonia level and daily. monitor mental status. (4) Altered mental status, unspecified Qualifiers: Altered mental status type: unspecified Qualified Code(s): R41.82 - Altered mental status, unspecified Assessment/Plan: improving, acute secondary to chronic alcohol abuse with cirhosis of liver. patient was still altered this morning and had an ammonia level at 135. gave lactulose and repeated ammonia level to see if any improvement in mental status. (5) Hepatic encephalopathy Assessment/Plan: chonic with acute onset. continuing with ammonia elevated and will continue with home medications lactulose and lasix. will monitor liver enzymes and bilirubin levels with daily lab draws (6) Medical non-compliance Assessment/Plan: chronic with acute. patient has been provided counseling regarding medication compliance - Current Meds Current Meds: Current Medications Generic Name Dose Route Start Last Admin Trade Name Freq PRN Reason Stop Dose Admin Ceftriaxone Sodium 1 gm 02/01/17 15:00 02/02/17 08:14 Rocephin IVP 1 gm DAILY ANA Administration Docusate Sodium 250 - 500 mg 02/02/17 12:00 02/02/17 13:49 Colace 250mg Capsule PO 500 mg DAILY ANA Administration Famotidine 20 mg 02/01/17 14:00 02/02/17 08:13 Pepcid PO 20 mg DAILY ANA Administration Folic Acid 1 mg 02/02/17 09:00 02/02/17 08:13 PO 1 mg DAILY ANA Administration Furosemide 40 mg 02/01/17 21:00 02/02/17 20:56 Lasix PO 40 mg BID ANA Administration Azithromycin 500 mg/ Sodium 250 mls @ 250 mls/hr 02/02/17 16:00 02/02/17 16:19 Chloride IV 250 mls/hr DAILY@0900 ANA Administration Polyethylene Glycol 17 gm 02/02/17 09:00 02/02/17 08:14 Miralax PO 17 gm DAILY ANA Administration Rifaximin 550 mg 02/02/17 09:00 02/02/17 20:56 Xifaxan PO 550 mg BID ANA Administration Senna 8.6 - 17.2 mg 02/02/17 12:00 02/02/17 13:49 Senokot PO 8.6 mg DAILY [facility]NA Administration Sodium Chloride 10 ml 02/01/17 14:00 02/03/17 06:25 Normal Saline Flush 0.9% IVP 10 ml Q8HR ANA Administration Thiamine HCl 100 mg 02/02/17 09:00 02/02/17 08:13 Vitamin B-1 PO 100 mg DAILY ANA Administration - Lab Result Lab results reviewed: Yes Fish Bone Diagrams: 02/04/17 05:15 02/04/17 05:15 Other Lab Results: Abnormal Lab Results 02/01/17 02/01/17 02/01/17 09:45 09:45 09:45 RBC 3.67 10^6/uL L 10^6/uL (4.70-6.10) Hgb 11.0 g/dL L g/dL (14.0-18.0) Hct 29.9 % L % (42.0-52.0) MCHC 36.7 g/dL H g/dL (32.0-36.0) RDW 16.9 % H % (12.0-15.0) Plt Count 93 10^3/uL L 10^3/uL (130-450) MPV 6.8 fL L fL (7.4-11.4) Lymph # 0.8 10^3/uL L 10^3/uL (1.5-3.5) PT INR Sodium 126 mmol/L L mmol/L (135-145) Chloride 94 mmol/L L mmol/L (101-111) Carbon Dioxide 19 mmol/L L mmol/L (21-32) BUN Estimated GFR (MDRD) 75 L (>89) Glucose 127 mg/dL H mg/dL (70-100) Total Bilirubin 4.5 mg/dL H mg/dL (0.2-1.0) AST 69 IU/L H IU/L (10-42) Alkaline Phosphatase 27 IU/L L IU/L (42-121) Ammonia 53.3 umol/L H umol/L (7-35) Total Protein Albumin Albumin/Globulin Ratio 0.9 L (1.0-2.2) Vitamin B12 02/01/17 02/02/17 02/02/17 09:45 06:02 06:02 RBC 3.29 10^6/uL L 10^6/uL (4.70-6.10) Hgb 9.8 g/dL L g/dL (14.0-18.0) Hct 27.3 % L % (42.0-52.0) MCHC 36.1 g/dL H g/dL (32.0-36.0) RDW 16.8 % H % (12.0-15.0) Plt Count 71 10^3/uL L 10^3/uL (130-450) MPV 7.3 fL L fL (7.4-11.4) Lymph # PT 17.0 secs H secs (9.9-12.6) INR 1.5 H (0.8-1.2) Sodium 130 mmol/L L mmol/L (135-145) Chloride Carbon Dioxide 19 mmol/L L mmol/L (21-32) BUN Estimated GFR (MDRD) 85 L (>89) Glucose Total Bilirubin 3.4 mg/dL H mg/dL (0.2-1.0) AST 52 IU/L H IU/L (10-42) Alkaline Phosphatase 25 IU/L L IU/L (42-121) Ammonia Total Protein 6.5 g/dL L g/dL (6.7-8.2) Albumin 3.0 g/dL L g/dL (3.2-5.5) Albumin/Globulin Ratio 0.9 L (1.0-2.2) Vitamin B12 02/02/17 02/02/17 02/03/17 06:30 06:30 06:06 RBC 3.29 10^6/uL L 10^6/uL (4.70-6.10) Hgb 9.8 g/dL L g/dL (14.0-18.0) Hct 27.3 % L % (42.0-52.0) MCHC RDW 16.8 % H % (12.0-15.0) Plt Count 68 10^3/uL L 10^3/uL (130-450) MPV 7.0 fL L fL (7.4-11.4) Lymph # 1.1 10^3/uL L 10^3/uL (1.5-3.5) PT INR Sodium Chloride Carbon Dioxide BUN Estimated GFR (MDRD) Glucose Total Bilirubin AST Alkaline Phosphatase Ammonia 85.7 umol/L H* umol/L (7-35) Total Protein Albumin Albumin/Globulin Ratio Vitamin B12 1163 pg/mL H pg/mL (180-914) 02/03/17 02/03/17 06:06 06:06 RBC Hgb Hct MCHC RDW Plt Count MPV Lymph # PT INR Sodium 132 mmol/L L mmol/L (135-145) Chloride Carbon Dioxide 20 mmol/L L mmol/L (21-32) BUN 22 mg/dL H mg/dL (6-20) Estimated GFR (MDRD) 75 L (>89) Glucose 106 mg/dL H mg/dL (70-100) Total Bilirubin 3.1 mg/dL H mg/dL (0.2-1.0) AST 47 IU/L H IU/L (10-42) Alkaline Phosphatase 26 IU/L L IU/L (42-121) Ammonia 135.3 umol/L H* umol/L (7-35) Total Protein 6.5 g/dL L g/dL (6.7-8.2) Albumin Albumin/Globulin Ratio Vitamin B12 - EKG Results EKG Interpreted Independently: No - Diagnostic Imaging Results Diagnostic Imaging Results: Final report reviewed Diagnostic Imaging Results Comments: Pending CT of abdomen pelvis to rule out mets to lower right lung and liver - Additional Planning Condition/Complexity: Stable My Orders: My Active Orders 02/03/17 09:00 Lactulose [Enulose] 20 gm PO ONCE Lactulose [Enulose] 20 gm PO TID 02/03/17 15:00 AMMONIA [CHEM] Timed Consult/Specialty: PT Plan Discussed with:: Patient, Case Management Time Spent: 31-60 minutes (patient is going to require another 24-48 hours of inpatient treatment. His blood cultures are pending and he is getting a repeat CT of abdomen to rule out mass) Subjective - Subjective Patient Reports: No Complaints, Other (confused and did not know his name or where he was. at second assessment, he was more alert and oriented. He was able to give name and birthday and up to restroom with assist) Nursing Reports: No Complaints, Confused, Other (had not had a bowel movement today even with lactulose) Objective Vital Signs: Vital Signs - 24 hr 02/02/17 02/02/17 02/02/17 12:06 15:38 19:22 Temperature 36.7 C 36.9 C 36.4 C L Heart Rate [ 76 99 94 Brachial] Respiratory 18 18 18 Rate Blood Pressure 102/49 L 131/64 H 115/56 L [Right Brachial artery] O2 Saturation 100 100 100 02/03/17 02/03/17 02/03/17 01:00 06:10 08:05 Temperature 36.7 C 36.6 C 36.5 C Heart Rate [ 77 70 76 Brachial] Respiratory 16 16 18 Rate Blood Pressure 106/43 L 105/42 L 117/64 [Right Brachial artery] O2 Saturation 99 99 100 Oxygen O2 Source Room air I&O (Last 24 Hrs): Intake and Output Totals x24h 02/01/17 02/02/17 02/03/17 23:59 23:59 23:59 Intake Total 240 1030 100 Output Total 375 1075 Balance -135 -45 100 General: Alert, Cooperative, No acute distress HEENT: PERRLA, EOMI Neck: Supple, No JVD, No thyromegaly Lymphatic: no adenopathy Neuro: Alert, Disoriented, CN 2-12 Grossly Intact (unable to assess at first assessment) Cardiovascular: Regular rate, Normal S1, Normal S2 Respiratory: Chest non-tender, No respiratory distress, Breath sounds nml Abdomen: Soft, Other (enlarged liver) Genitourinary: No Discharge Extremities: No clubbing, No cyanosis, Normal pulses, Other Skin: No rashes, No breakdown, No significant lesion - Results Results: Laboratory Results WBC 4.8 x10^3/uL (4.8-10.8) 02/03/17 06:06 RBC 3.29 10^6/uL (4.70-6.10) L 02/03/17 06:06 Hgb 9.8 g/dL (14.0-18.0) L 02/03/17 06:06 Hct 27.3 % (42.0-52.0) L 02/03/17 06:06 MCV 83.0 fL (80.0-94.0) 02/03/17 06:06 MCH 29.7 pg (27.0-31.0) 02/03/17 06:06 MCHC 35.8 g/dL (32.0-36.0) 02/03/17 06:06 RDW 16.8 % (12.0-15.0) H 02/03/17 06:06 Plt Count 68 10^3/uL (130-450) L 02/03/17 06:06 MPV 7.0 fL (7.4-11.4) L 02/03/17 06:06 Neut # 3.1 10^3/uL (1.5-6.6) 02/03/17 06:06 Lymph # 1.1 10^3/uL (1.5-3.5) L 02/03/17 06:06 [place] # 0.5 10^3/uL (0.0-1.0) 02/03/17 06:06 Eos # 0.1 10^3/uL (0.0-0.7) 02/03/17 06:06 Baso # 0.0 10^3/uL (0.0-0.1) 02/03/17 06:06 Absolute Nucleated RBC 0.00 x10^3/uL 02/03/17 06:06 Nucleated RBCs 0.0 /100WBC 02/03/17 06:06 PT 17.0 secs (9.9-12.6) H 02/01/17 09:45 INR 1.5 (0.8-1.2) H 02/01/17 09:45 Sodium 132 mmol/L (135-145) L 02/03/17 06:06 Potassium 3.7 mmol/L (3.5-5.0) 02/03/17 06:06 Chloride 103 mmol/L (101-111) 02/03/17 06:06 Carbon Dioxide 20 mmol/L (21-32) L 02/03/17 06:06 Anion Gap 9.0 (6-13) 02/03/17 06:06 BUN 22 mg/dL (6-20) H 02/03/17 06:06 Creatinine 1.0 mg/dL (0.6-1.2) 02/03/17 06:06 Estimated GFR (MDRD) 75 (>89) L 02/03/17 06:06 Glucose 106 mg/dL (70-100) H 02/03/17 06:06 Calcium 9.0 mg/dL (8.5-10.3) 02/03/17 06:06 Magnesium 1.7 mg/dL (1.7-2.8) 02/02/17 06:02 Total Bilirubin 3.1 mg/dL (0.2-1.0) H 02/03/17 06:06 AST 47 IU/L (10-42) H 02/03/17 06:06 ALT 21 IU/L (10-60) 02/03/17 06:06 Alkaline Phosphatase 26 IU/L (42-121) L 02/03/17 06:06 Ammonia 135.3 umol/L (7-35) H* 02/03/17 06:06 Troponin I < 0.04 ng/mL (<0.49) 02/01/17 09:45 Total Protein 6.5 g/dL (6.7-8.2) L 02/03/17 06:06 Albumin 3.2 g/dL (3.2-5.5) 02/03/17 06:06 Globulin 3.3 g/dL (2.1-4.2) 02/03/17 06:06 Albumin/Globulin Ratio 1.0 (1.0-2.2) 02/03/17 06:06 Lipase 34 U/L (22-51) 02/01/17 09:45 Vitamin B12 1163 pg/mL (180-914) H 02/02/17 06:30 TSH 5.57 uIU/mL (0.34-5.60) 02/02/17 06:02 Ethyl Alcohol < 5.0 mg/dL 02/01/17 09:45 - Procedures Procedures: Procedures REPLACEMENT OF LEFT LENS WITH SYNTH SUB, PERC APPROACH (01/22/17) REPLACEMENT OF RIGHT LENS WITH SYNTH SUB, PERC APPROACH (01/01/17)
[2017-02-03] MEDS ORDERED: MAGNESIUM SULFATE 2 GRAM 50 ML IV ONE (08:24)
[2017-02-03] MEDS ORDERED: LACTULOSE 10 GM /15 ML UDC PO SCH (09:00)
[2017-02-03] MEDS: cefTRIAXone 1 GM in SODIUM CHLORIDE 0.9% MINIBAG 100 ML IV SCH (09:55)
[2017-02-03] MEDS: FAMOTIDINE 20 MG TABLET PO SCH (09:56)
[2017-02-03] MEDS: DOCUSATE SODIUM 250 MG CAPSULE PO SCH ×2 (09:56→10:19)
[2017-02-03] MEDS: THIAMINE 100 MG TABLET PO SCH (09:56)
[2017-02-03] MEDS: FUROSEMIDE 20 MG TABLET PO SCH ×2 (09:57→20:38)
[2017-02-03] MEDS: POLYETHYLENE GLYCOL 3350 17 GM PACKET PO SCH ×2 (09:57→10:19)
[2017-02-03] MEDS: FOLIC ACID 1 MG TABLET PO SCH (09:57)
[2017-02-03] MEDS: SENNA 8.6 MG TABLET PO SCH ×2 (09:57→10:19)
[2017-02-03] MEDS: rifAXIMin 550 MG TABLET PO SCH ×2 (09:57→20:39)
[2017-02-03] MEDS: AZITHROMYCIN INJ 500 MG in SODIUM CHLORIDE 0.9% 250 ML IV SCH (10:37)
[2017-02-03 10:49] LABS: INR 1.5 (0.8-1.2); PT - PROTHROMBIN TIME 17.4 secs (9.9-12.6)
[2017-02-03 15:37] LABS: VBG PH 7.465 (7.31-7.41)
[2017-02-03 15:38] LABS: VBG BASE EXCESS -2.8 mmol/L (-2 - +2); VBG OXYGEN SATURATION 61.5 % (60-80); VBG TOTAL CO2 20.7 mmol/L (24-29)
[2017-02-03] MEDS ORDERED: IOPAMIDOL-300 100 ML VIAL IVP ONE (20:29)
--- NOTE | 2017-02-03 22:15 | CT Report ---
EXAM: CT ABDOMEN AND PELVIS EXAM DATE: 02/03/2017 08:32 PM. CLINICAL HISTORY: Possible mets to liver or right lower lung. Generalized cramping with on and off constipation. COMPARISONS: Abdominal pelvic CT 08/15/2016. TECHNIQUE: Routine helical CT imaging was performed through the abdomen and pelvis. IV contrast: 100 cc Isovue-300. Enteric contrast: No. Reconstructions: Coronal and sagittal. In accordance with CT protocol optimization, one or more of the following dose reduction techniques w ere utilized for this exam: automated exposure control, adjustment of mA and/or KV based on patient s ize, or use of iterative reconstructive technique. FINDINGS: Lung Bases: Unremarkable. No basilar lung mass or suspicious nodule. Liver: Cirrhotic liver morphology with nodular contour. Heterogeneous appearing liver without evidenc e for mass. Recanalized umbilical vein. Gallbladder/Bile Ducts: Contracted gallbladder containing multiple stones. Spleen: 16.5 cm splenomegaly. Pancreas: Normal. Adrenal Glands: Normal. Kidneys: Normal. No masses or hydronephrosis. Peritoneal Cavity/Bowel: Trace ascites. The appendix is well visualized and normal. Liquid stool noted within the colon. Mid sigmoid colon is collapsed on coronal image 15. Pelvic Organs: Normal. The bladder and visualized pelvic organs are within normal limits. Vasculature: Esophageal varices. Atherosclerotic calcifications. No abdominal aortic aneurysm. Promin ent soft plaque narrowing the proximal SMA limb into more than 50% on axial image 37 and sagittal saritha ge 35. Bones: Lower thoracic spine DISH. Other: None. IMPRESSION: 1. Cirrhotic liver with portal hypertension. Recanalized umbilical vein. Esophageal varices. Splenome teresita. 2. Multiple gallstones within contracted gallbladder. 3. Liquid stool noted within the colon. There is a 4.5 cm segment of mid sigmoid colon that is collap sed. Question peristalsis, spasm or mass. 4. Trace ascites. 5. Proximal superior mesenteric artery is probably narrowed greater than 50% by soft plaque. Consider dedicated CTA if clinically warranted. [facility] Referring Provider Line: [phone] SITE ID: [id number]
[2017-02-04 05:30] LABS: BASOPHILS # (AUTO) 0.1 10^3/uL (0.0-0.1); BASOPHILS % (AUTO) 0.7 %; EOSINOPHILS # (AUTO) 0.1 10^3/uL (0.0-0.7); EOSINOPHILS % (AUTO) 1.1 %; HCT - HEMATOCRIT 30.4 % (42.0-52.0); LYMPHOCYTES # (AUTO) 1.5 10^3/uL (1.5-3.5); LYMPHOCYTES % (AUTO) 17.3 %; MEAN CORPUSCULAR HEMOGLOBIN 30.4 pg (27.0-31.0); MEAN CORPUSCULAR HGB CONC 36.3 g/dL (32.0-36.0); MEAN CORPUSCULAR VOLUME 83.6 fL (80.0-94.0); MEAN PLATELET VOLUME 7.1 fL (7.4-11.4); MONOCYTES # (AUTO) 0.5 10^3/uL (0.0-1.0); MONOCYTES % (AUTO) 5.6 %; NEUTROPHILS # (AUTO) 6.3 10^3/uL (1.5-6.6); NEUTROPHILS % (AUTO) 75.3 %; RED BLOOD COUNT 3.64 10^6/uL (4.70-6.10); UNCORRECTED WHITE BLOOD COUNT 8.4 x10^3/uL; WHITE BLOOD COUNT 8.4 x10^3/uL (4.8-10.8)
[2017-02-04 05:38] LABS: ALBUMIN/GLOBULIN RATIO 0.8 (1.0-2.2); BILIRUBIN,TOTAL 3.9 mg/dL (0.2-1.0); POTASSIUM 3.3 mmol/L (3.5-5.0); TOTAL PROTEIN 7.1 g/dL (6.7-8.2)
[2017-02-04] MEDS: LACTULOSE 10 GM /15 ML UDC PO SCH ×2 (06:08→13:28)
[2017-02-04] MEDS: SODIUM CHLORIDE FLUSH 0.9% 10 ML SYRINGE IVP SCH ×2 (06:09→08:54)
[2017-02-04] MEDS ORDERED: SODIUM CHLORIDE 0.9% 500 ML IV ONE (08:18)
[2017-02-04] MEDS ORDERED: POTASSIUM CHLORIDE 20 MEQ TABLET PO SCH (09:00)
[2017-02-04] MEDS ORDERED: PANTOPRAZOLE 40 MG VIAL IVP SCH (09:00)
[2017-02-04] MEDS: rifAXIMin 550 MG TABLET PO SCH (09:01)
[2017-02-04] MEDS: THIAMINE 100 MG TABLET PO SCH (09:02)
[2017-02-04] MEDS: FUROSEMIDE 20 MG TABLET PO SCH (09:04)
[2017-02-04] MEDS: FOLIC ACID 1 MG TABLET PO SCH (09:04)
[2017-02-04] MEDS: FAMOTIDINE 20 MG TABLET PO SCH (09:04)
[2017-02-04] MEDS: DOCUSATE SODIUM 250 MG CAPSULE PO SCH (09:06)
[2017-02-04] MEDS: cefTRIAXone 1 GM in SODIUM CHLORIDE 0.9% MINIBAG 100 ML IV SCH (09:08)
[2017-02-04] MEDS: AZITHROMYCIN INJ 500 MG in SODIUM CHLORIDE 0.9% 250 ML IV SCH (10:27)
[2017-02-04 12:22] VITALS: BP 138/63
--- NOTE | 2017-02-04 13:39 | Discharge Plan ---
Discharge Plan Disposition: Home, Self Care Condition: Good Prescriptions: Folic Acid 1 mg PO DAILY #30 tablet Potassium Chloride [K-Dur] 20 meq PO DAILYWM #10 tablet Pantoprazole Sodium [Protonix] 20 mg PO BID #60 tablet. Thiamine [Vitamin B-1] 100 mg PO DAILY #30 tablet Diet: Low Sodium Activity Restrictions: Activity as Tolerated Shower Restrictions: No Driving Restrictions: No Assistance Devices: Cane Weight Bearing: Full Weight Instruction Topics: Cirrhosis Tx, Liver Function Ch Additional Instructions or Follow Up instructions: Please continue to take all home medication as prescribed. You have been given prescriptions for vitamins and supplements to help increase your immune system. Continue on protonix for bleeding in the GI tract. Please see your primary care provider within one week of discharge. Return to the ER if symptoms worsen or you have shortness of breath or chest pain, fever or sweats and chills Please eat a low sodium diet and get daily exercise. Walking is a great form of exercise daily Avoid drinking soda and drink more water during the day. No Smoking: If you smoke, Please STOP! Call for help.
--- NOTE | 2017-02-04 13:50 | DISCHARGE SUMMARY ---
"Discharge Summary Admit Date: 02/01/17 Discharge Date: 02/04/17 Discharging Provider: Jacinta Hutchinson APRN Code Status: Attempt Resuscitation Condition at Discharge: Good Discharge Disposition: 01 Home, Self Care Discharge Facility Name: home - DIAGNOSES Admission Diagnoses: 1. ACUTE ENCEPHALOPATHY PROBABLE METABOLIC/HEPATIC 2. ACUTE HYPONATREMIA 3. ELEVATED AMMONIA LEVELS 4. CHRONIC ALCOHOL ABUSE, IN REMISSION 5. CIRRHOSIS OF THE LIVER SECONDARY TO CHRONIC ALCOHOL ABUSE, IN REMISSION Discharge Diagnoses with Status of Each Condition: 1. ACUTE HEPATIC ENCEPHALOPATHY with medication noncompliance 2. ACUTE HYPONATREMIA 3. ELEVATED AMMONIA LEVELS 4. CHRONIC ALCOHOL ABUSE, IN REMISSION 5. CIRRHOSIS OF THE LIVER SECONDARY TO CHRONIC ALCOHOL ABUSE, IN REMISSION 6. HOMELESSNESS - HPI History of Present Illness: This is a 67-year-old male with a past medical history significant for alcoholic cirrhosis, congestive heart failure, HTN, chronic vision loss and chronic hearing loss, who presented to the ER for evaluation of altered mental status. Patient was a poor historian and some confusion due to his medical status. Per patient's report patient has been increasing confusion over the last four days. Patient has also had a persistent cough for the past couple weeks. Denies fever, chill, night sweating, loss of weight. Patient had cataract surgery on 12/27/16, since that time, patient did not take any Lactulose and Xifaxin, However on 12/27/16, patient's ammonia level was 82, on admission patient's ammonia level was 53.3, per patient's report. Patient' s reported that patient was homeless and live in a Van, and he has chronic illness and on disability. His is not able to take care for him at her current condition. upon admission lab tests were Na 126, total Bilirubin 4.5, Ammonia 53.3, PT/INR 17/1.5, HGB 11, Plt93. CXR revealed intervals increased in airspace opacity in the right lower lobe, possible infiltrate - CONSULTS | PROCEDURES Consultations: respiratory therapy and physical therapy Procedures: Rads (name of study) 2 view chest Radiology: Prelim report reviewed (Impression: 1. Interval increase in airspace opacity in the right lower lobe medially without dense focal consolidation. Atelectasis or infiltrate or other causes including infection could have this appearance.2. No other change.), EMP read indepedently, See rad report CT of abdomen and pelvis: see HPI - HOSPITAL COURSE Hospital Course: This is a 67-year-old male with a past medical history significant for alcoholic cirrhosis, congestive heart failure, HTN, chronic vision loss and chronic hearing loss, was having confusion and on initial presentation to the ER appeared to have likely hepatic encephalopathy. x 4 days. The patient had a persistent cough for the past 5 weeks. He had cataract surgery on december 27 2016 and since then had not been noncompliant with his lactulose and a script for xifaxin has not been filled. He and his were living in their van with their dog and they were not been able to find a place that will take their dog. Patient was admitted to inpatient for further evaluation. Patient was complaining of a cough persistent for the past 5 weeks. Patient was found to be hyponatremic in the ER and was started on IVF 1 liter for mild dehydration since he has chronic liver failure and monitored for fluids overload. he continued on Lasix for ascites. He was thought to have an infiltrate on his chest x-ray and was started on Rocephin and azithromycin IV at admission. RT treatments were given and supplemental oxygen at 2 liters NC for sats to remain >92%. cinder pit worker assisted in his care and saw patient to assist with place to stay at discharge. was not very helpful with providing ability for patient to stay with her at discharge at time of admission. At discharge she agreed to take patient home. At admission, patient was given lactulose for an elevated ammonia level of 135. He was noncompliant outpatient. His ammonia resolved to 20 on the day of discharge. He had frequent bowel movements and no issues with urination. He received a banana bag for nutritional support and IV magnesium due to a low serum magnesium of 1.5. During course of stay, CT of abdomen and pelvis performed to rule out possible mass since patient did complain of mild abdominal pain to upper left and lower pelvic region. He was found to have spleenomegaly and pulmonary hypertension with esophageal varices. Patient stated he was aware of all medical diagnosis on CT report. He states he is feeling better and his encephalopathy had improved with the decreased ammonia levels and taking his home medications as prescribed. He had a positive stool sample and was started on Protonix BID and given prescription at discharge. He received IV magnesium and oral and IV potassium for replacement of electrolytes. They were monitored with daily lab draws. Patient was ordered bowel prophylaxis and monitored for behavior changes with ativan PRN. He continued on home medications for blood pressures, cirrhosis of liver and pain. He was discharged home with and instructed to followup with primary care provider within one week of discharge. vital signs were stable - ALLERGIES Allergies/Adverse Reactions: Allergies Allergy/AdvReac Type Severity Reaction Status Date / Time levetiracetam [From Keppra] Allergy Unknown Verified 02/01/17 09:59 palifermin [From Kepivance] Allergy Unknown Verified 02/01/17 09:59 - MEDICATIONS Home Medications: Ambulatory Orders Medication Instructions Recorded Confirmed diphenhydrAMINE [Benadryl] 25 mg PO Q6H PRN 12/14/13 02/01/17 Codeine Sulfate 15 mg PO BID 01/01/17 02/01/17 Spironolact/Hydrochlorothiazid 50 mg PO BID 01/01/17 02/01/17 [Spironolactone-Hctz 25-25 Tab] Furosemide [Lasix] 20 mg PO BID 02/01/17 02/01/17 Losartan [Cozaar] 50 mg PO DAILY PM 02/01/17 02/01/17 Omeprazole 20 mg PO BID 02/01/17 02/01/17 rifAXIMin [Xifaxan] 550 mg PO BID 02/01/17 02/01/17 Folic Acid 1 mg PO DAILY #30 tablet 02/04/17 Pantoprazole Sodium [Protonix] 20 mg PO BID #60 tablet. 02/04/17 Potassium Chloride [K-Dur] 20 meq PO DAILYWM #10 tablet 02/04/17 Thiamine [Vitamin B-1] 100 mg PO DAILY #30 tablet 02/04/17 - PHYSICAL EXAM AT DISCHARGE General Appearance: positive: No acute distress, Alert Eyes Bilateral: positive: Normal inspection, PERRL, EOMI ENT: positive: ENT inspection nml, Pharynx nml, No signs of dehydration Neck: positive: Nml inspection, Thyroid nml, No JVD, Trachea midline Respiratory: positive: Chest non-tender, No respiratory distress, Breath sounds nml Cardiovascular: positive: Regular rate & rhythm, No murmur, No gallop Peripheral Pulses: positive: 2+ Abdomen: positive: Nml bowel sounds, Tenderness, Splenomegaly, Other (CHRONIC DISTENTION WITH ENLARGED SPLEEN) Rectal: positive: Stool - heme POS Back: positive: Nml inspection Skin: positive: Color nml, No rash, Warm, Dry Extremities: positive: Non-tender, Full ROM, Nml appearance Neurologic/Psychiatric: positive: Oriented x3, CN's nml (2-12), Motor nml, Sensation nml, Weakness - LABS Result Diagrams: 02/04/17 05:15 02/04/17 05:15 Other Lab Results: Abnormal Lab Results 02/03/17 02/03/17 02/03/17 06:06 06:06 06:06 RBC 3.29 10^6/uL L 10^6/uL (4.70-6.10) Hgb 9.8 g/dL L g/dL (14.0-18.0) Hct 27.3 % L % (42.0-52.0) MCHC RDW 16.8 % H % (12.0-15.0) Plt Count 68 10^3/uL L 10^3/uL (130-450) MPV 7.0 fL L fL (7.4-11.4) Lymph # 1.1 10^3/uL L 10^3/uL (1.5-3.5) PT INR VBG pH VBG pCO2 VBG HCO3 VBG Total CO2 VBG Base Excess Sodium 132 mmol/L L mmol/L (135-145) Potassium Carbon Dioxide 20 mmol/L L mmol/L (21-32) BUN 22 mg/dL H mg/dL (6-20) Estimated GFR (MDRD) 75 L (>89) Glucose 106 mg/dL H mg/dL (70-100) Phosphorus Total Bilirubin 3.1 mg/dL H mg/dL (0.2-1.0) AST 47 IU/L H IU/L (10-42) Alkaline Phosphatase 26 IU/L L IU/L (42-121) Ammonia 135.3 umol/L H* umol/L (7-35) Total Protein 6.5 g/dL L g/dL (6.7-8.2) Albumin/Globulin Ratio Free T3 pg/mL 02/03/17 02/03/17 02/03/17 06:06 09:54 15:31 RBC Hgb Hct MCHC RDW Plt Count MPV Lymph # PT 17.4 secs H secs (9.9-12.6) INR 1.5 H (0.8-1.2) VBG pH VBG pCO2 VBG HCO3 VBG Total CO2 VBG Base Excess Sodium Potassium Carbon Dioxide BUN Estimated GFR (MDRD) Glucose Phosphorus Total Bilirubin AST Alkaline Phosphatase Ammonia 65.7 umol/L H umol/L (7-35) Total Protein Albumin/Globulin Ratio Free T3 pg/mL 2.29 pg/mL L pg/mL (2.5-3.9) 02/03/17 02/03/17 02/04/17 15:31 15:31 05:15 RBC 3.64 10^6/uL L 10^6/uL (4.70-6.10) Hgb 11.0 g/dL L g/dL (14.0-18.0) Hct 30.4 % L % (42.0-52.0) MCHC 36.3 g/dL H g/dL (32.0-36.0) RDW 17.0 % H % (12.0-15.0) Plt Count 92 10^3/uL L 10^3/uL (130-450) MPV 7.1 fL L fL (7.4-11.4) Lymph # PT INR VBG pH 7.465 H (7.31-7.41) VBG pCO2 28.2 mmHg L mmHg (41-51) VBG HCO3 19.8 mmol/L L mmol/L (23-28) VBG Total CO2 20.7 mmol/L L mmol/L (24-29) VBG Base Excess -2.8 mmol/L L mmol/L (-2 - +2) Sodium Potassium Carbon Dioxide BUN Estimated GFR (MDRD) Glucose Phosphorus 4.9 mg/dL H mg/dL (2.5-4.6) Total Bilirubin AST Alkaline Phosphatase Ammonia Total Protein Albumin/Globulin Ratio Free T3 pg/mL 02/04/17 05:15 RBC Hgb Hct MCHC RDW Plt Count MPV Lymph # PT INR VBG pH VBG pCO2 VBG HCO3 VBG Total CO2 VBG Base Excess Sodium 129 mmol/L L mmol/L (135-145) Potassium 3.3 mmol/L L mmol/L (3.5-5.0) Carbon Dioxide 19 mmol/L L mmol/L (21-32) BUN 22 mg/dL H mg/dL (6-20) Estimated GFR (MDRD) 75 L (>89) Glucose 106 mg/dL H mg/dL (70-100) Phosphorus Total Bilirubin 3.9 mg/dL H mg/dL (0.2-1.0) AST 43 IU/L H IU/L (10-42) Alkaline Phosphatase 27 IU/L L IU/L (42-121) Ammonia Total Protein Albumin/Globulin Ratio 0.8 L (1.0-2.2) Free T3 pg/mL - DIAGNOSTIC IMAGING Diagnostic Imaging Results: Final report reviewed Diagnostic Imaging Results Comments: CT of abdomen and pelvis showed spleenomegaly, mild ascites to pelvic region, esophageal varices, no obstruction or masses. - FOLLOW UP Follow Up: Patient was instructed to followup with his primary care provider within one week of discharge. He verbally understood instructions given. He was given four prescriptions for supplements and for protonix for GI prophylaxis for bleeding. He was go home with . He was to be staying with her at discharge. - TIME SPENT Time Spent in Discharge (Minutes): 40 (for planning education and assessment)"
== END 2017-02-04 14:50 | disposition home or self-care (01) | DRG 432 ==
LOC: ED 09:24 → MS2 12:23
PROVIDERS: ADMIT Nurse Practitioner Gerontology; ATTEND Nurse Practitioner
DX: K72.90 Hepatic failure, unspecified without coma (principal); K70.40 Alcoholic hepatic failure without coma; J18.1 Lobar pneumonia, unspecified organism; J18.9 Pneumonia, unspecified organism; F10.188 Alcohol abuse with other alcohol-induced disorder; K70.30 Alcoholic cirrhosis of liver without ascites; E87.1 Hypo-osmolality and hyponatremia; E72.20 Disorder of urea cycle metabolism, unspecified; T47 Poisoning by, adverse effect of and underdosing of agents primarily affecting the gastrointestinal system; Z79.891 Long term (current) use of opiate analgesic; I85.10 Secondary esophageal varices without bleeding; K70.31 Alcoholic cirrhosis of liver with ascites; I11.0 Hypertensive heart disease with heart failure; I50.9 Heart failure, unspecified; I27.2 Other secondary pulmonary hypertension; R16.1 Splenomegaly, not elsewhere classified; E86.0 Dehydration; E83.39 Other disorders of phosphorus metabolism; E87.8 Other disorders of electrolyte and fluid balance, not elsewhere classified; H54.7 Unspecified visual loss; H91.90 Unspecified hearing loss, unspecified ear; Z59.0 Homelessness; Z91.14 Patient's other noncompliance with medication regimen; Z79.899 Other long term (current) drug therapy
CPT/HCPCS: 36415; 71020; 74177; 80053; 80320; 82140; 82270; 82607; 82803; 83690; 83735; 84100; 84443; 84481; 84484; 85025; 85610; 87040; 96365; 96366; 96368; 99284; 99285

== ENCOUNTER 2017-02-09 02:45 | Inpatient (IN) | payer MEDICARE, OTHER ==
[2017-02-09] MEDS ORDERED: SODIUM CHLORIDE 0.9% 1,000 ML IV ONE ×2 (03:31→04:51)
--- NOTE | 2017-02-09 03:32 | ED Physician Documentation ---
History of Present Illness - Stated complaint Stated Complaint: ABDOMINAL PAIN - Chief complaint Chief Complaint: Abd Pain - History obtained from History obtained from: Patient - History of Present Illness Timing: How many days ago (2) - Additonal information Additional information: 67-year-old male with alcoholic cirrhosis has had a recent admission for encephalopathy and pneumonia and hyponatremia. He was treated in the hospital for 3 days and discharged back to the care of his . He remains homeless. And living in a van. He reports 2 days of extreme dizziness.He is a poor historian but does not appear as confused as he was 10 days ago. Review of Systems Constitutional: reports: Myalgias, Fatigue. denies: Fever Eyes: denies: Decreased vision Ears: denies: Ear pain Nose: denies: Rhinorrhea / runny nose, Congestion Throat: denies: Sore throat Cardiac: denies: Chest pain / pressure, Palpitations Respiratory: reports: Dyspnea. denies: Cough GI: reports: Abdominal Pain, Nausea : denies: Dysuria, Frequency Skin: denies: Rash Musculoskeletal: denies: Neck pain, Back pain, Extremity pain Neurologic: reports: Generalized weakness. denies: Focal weakness, Numbness PD PAST MEDICAL HISTORY - Past Medical History Past Medical History: Yes Cardiovascular: Congestive heart failure, Hypertension Respiratory: None Neuro: Other Endocrine/Autoimmune: Other GI: Cirrhosis : None HEENT: Chronic vision loss, Chronic hearing loss Psych: None Musculoskeletal: None Derm: Other - Past Surgical History Past Surgical History: Yes General: Colonoscopy HEENT: Cataracts - Present Medications Home Medications: Ambulatory Orders Medication Instructions Recorded Confirmed diphenhydrAMINE [Benadryl] 25 mg PO Q6H PRN 12/14/13 02/01/17 Codeine Sulfate 15 mg PO BID 01/01/17 02/01/17 Spironolact/Hydrochlorothiazid 50 mg PO BID 01/01/17 02/01/17 [Spironolactone-Hctz 25-25 Tab] Furosemide [Lasix] 20 mg PO BID 02/01/17 02/01/17 rifAXIMin [Xifaxan] 550 mg PO BID 02/01/17 02/01/17 Folic Acid 1 mg PO DAILY #30 tablet 02/04/17 - Allergies Allergies/Adverse Reactions: Allergies Allergy/AdvReac Type Severity Reaction Status Date / Time levetiracetam [From srinivas] Allergy Unknown Verified 02/01/17 09:59 palifermin [From Kepivance] Allergy Unknown Verified 02/01/17 09:59 - Social History Does the pt smoke?: No Smoking Status: Never smoker - Immunizations Immunizations: TDAP >10years/unknown - POLST Patient has POLST: No POLST Status: Full Code (pt report he want to be full code.) PD ED PE NORMAL - Vitals Vital signs reviewed: Yes (hypotensive ) - General General: No acute distress, Well developed/nourished - HEENT HEENT: Atraumatic, PERRL, EOMI, Other (dry mucous membranes) - Neck Neck: Supple, no meningeal sign - Cardiac Cardiac: RRR, No murmur - Respiratory Respiratory: No respiratory distress, Clear bilaterally - Abdomen Abdomen: Soft, Other (mild general tenderness without garding or rebound. ) - Back Back: No CVA TTP, No spinal TTP - Derm Derm: Normal color, Warm and dry, No rash - Extremities Extremities: No deformity, No edema - Neuro Neuro: No motor deficit, No sensory deficit, Normal speech - Psych Psych: Normal mood, Normal affect Results - Vitals Vitals: Vital Signs - 24 hr 02/09/17 02/09/17 02/09/17 02:50 03:45 04:42 Temperature 36.9 C Heart Rate 73 85 85 Respiratory 16 18 18 Rate Blood Pressure 85/46 L 84/46 L 92/47 L O2 Saturation 100 98 99 02/09/17 05:30 Temperature Heart Rate 68 Respiratory 16 Rate Blood Pressure 89/43 L O2 Saturation 100 Oxygen O2 Source Room air - Labs Labs: Laboratory Tests 02/09/17 02/09/17 02/09/17 03:45 04:38 04:38 WBC 4.7 L RBC 2.59 L Hgb 7.7 L Hct 21.1 L MCV 81.4 MCH 29.6 MCHC 36.4 H RDW 16.6 H Plt Count 71 L MPV 7.0 L Neut # 3.2 Lymph # 0.8 L [place] # 0.6 Eos # 0.1 Baso # 0.0 Absolute Nucleated RBC 0.00 Nucleated RBCs 0.0 PT 17.2 H INR 1.5 H Sodium 118 L* Potassium 2.6 L Chloride 93 L Carbon Dioxide 18 L Anion Gap 7.0 BUN 31 H Creatinine 1.5 H Estimated GFR (MDRD) 47 L Glucose 107 H Calcium 7.9 L Total Bilirubin 2.7 H AST 44 H ALT 20 Alkaline Phosphatase 38 L Ammonia Total Protein 5.2 L Albumin 2.6 L Globulin 2.6 Albumin/Globulin Ratio 1.0 Lipase 75 H 02/09/17 04:38 WBC RBC Hgb Hct MCV MCH MCHC RDW Plt Count MPV Neut # Lymph # [place] # Eos # Baso # Absolute Nucleated RBC Nucleated RBCs PT INR Sodium Potassium Chloride Carbon Dioxide Anion Gap BUN Creatinine Estimated GFR (MDRD) Glucose Calcium Total Bilirubin AST ALT Alkaline Phosphatase Ammonia 50.5 H Total Protein Albumin Globulin Albumin/Globulin Ratio Lipase Procedures - IVC sono (time) 0332 Bedside IVC sono: IVC measures (cm) (0.78), IVC collapsed c insp (cm) (complete) , Significant dehydration PD MEDICAL DECISION MAKING - ED course Complexity details: reviewed old records, reviewed results, re-evaluated patient , considered differential, d/w patient ED course: 67-year-old male with alcoholic cirrhosis and recent admission for hepatic encephalopathy has been compliant with his medications he is taking Lasix and Spironolactone and he is developed acute dizziness. Here in the emergency department he is found to be significantly dehydrated and IV saline is begun. His laboratory work shows multiple abnormalities most significantly a sodium of 118 and a potassium of 2.6. K riders are started. The patient does have critical hyponatremia and admission is prudent. Departure - Departure Disposition: 66 [facility] DC/Xfer Clinical Impression: Hyponatremia, Dehydration
[2017-02-09 04:13] LABS: INR 1.5 (0.8-1.2); PT - PROTHROMBIN TIME 17.2 secs (9.9-12.6)
[2017-02-09 04:56] LABS: BILIRUBIN,TOTAL 2.7 mg/dL (0.2-1.0); CALCIUM 7.9 mg/dL (8.5-10.3); CREATININE 1.5 mg/dL (0.6-1.2); POTASSIUM 2.6 mmol/L (3.5-5.0); TOTAL PROTEIN 5.2 g/dL (6.7-8.2)
[2017-02-09] MEDS ORDERED: POTASSIUM CHLOR 10 MEQ/100 ML 100 ML IV ONE ×2 (05:03→05:27)
[2017-02-09 05:05] LABS: BASOPHILS % (AUTO) 0.4 %; EOSINOPHILS # (AUTO) 0.1 10^3/uL (0.0-0.7); HCT - HEMATOCRIT 21.1 % (42.0-52.0); HGB - HEMOGLOBIN 7.7 g/dL (14.0-18.0); LYMPHOCYTES # (AUTO) 0.8 10^3/uL (1.5-3.5); MEAN CORPUSCULAR HEMOGLOBIN 29.6 pg (27.0-31.0); MEAN CORPUSCULAR HGB CONC 36.4 g/dL (32.0-36.0); MEAN CORPUSCULAR VOLUME 81.4 fL (80.0-94.0); MONOCYTES # (AUTO) 0.6 10^3/uL (0.0-1.0); MONOCYTES % (AUTO) 12.1 %; NEUTROPHILS # (AUTO) 3.2 10^3/uL (1.5-6.6); NEUTROPHILS % (AUTO) 68.5 %; RED BLOOD COUNT 2.59 10^6/uL (4.70-6.10); RED CELL DISTRIBUTION WIDTH 16.6 % (12.0-15.0); UNCORRECTED WHITE BLOOD COUNT 4.7 x10^3/uL; WHITE BLOOD COUNT 4.7 x10^3/uL (4.8-10.8)
[2017-02-09 06:17] LABS: BILIRUBIN,URINE NEGATIVE (NEGATIVE)
[2017-02-09 06:22] LABS: UA CHARGE (STRIP ONLY) YES; UR CULTURE IF IND NOT INDICATED
[2017-02-09] MEDS ORDERED: diphenhydrAMINE 25 MG CAPSULE PO PRN (06:28)
[2017-02-09] MEDS ORDERED: PHYTONADIONE 10 MG/ML AMP SUBQ SCH (06:36)
[2017-02-09] MEDS ORDERED: MORPHINE 2 MG/ML SYRINGE IVP PRN (06:38)
[2017-02-09] MEDS ORDERED: ONDANSETRON 4 MG/2 ML VIAL IVP PRN (06:38)
[2017-02-09 07:55] LABS: MAGNESIUM 1.6 mg/dL (1.7-2.8); PHOSPHORUS 4.8 mg/dL (2.5-4.6)
--- NOTE | 2017-02-09 07:56 | HISTORY & PHYSICAL EXAMINATION ---
DATE OF ADMISSION: 02/09/2017 CHIEF COMPLAINT: Abdominal pain. HISTORY OF PRESENT ILLNESS: The patient is a 67-year-old white male with past medical history of end-stage liver disease/alcoholic cirrhosis with portal hypertensive gastropathy with history of pancytopenia and electrolyte abnormalities, also with history of noncompliance, who was recently admitted about a week ago and was treated for hepatic encephalopathy, was also treated for electrolyte abnormalities and was found with occult blood positive stool. The patient today presented to [facility] ER complaining of abdominal pain. He told me that after recent hospital discharge, he felt back to his usual state of health and he developed a somewhat sudden abdominal discomfort, mostly in the left lower quadrant on the night of admission. He also reported feeling tired because during the past 4 days he only slept 12 hours. He describes that his poor sleep was secondary to his bothering him and not letting him sleep. He explains that his is unhappy with the living situation such as being practically homeless, living in a van. Other than the abdominal pain and feeling tired, the patient offers no complaint. He denies noncompliance and tells me he takes his medications regularly; however, he cannot recall or list his outpatient medications. Regarding his fluid intake, he tells me he drinks 2 big bottles of Gatorade everyday, about 60 ounces. He denies seeing blood in his stools. Denies nausea, vomiting or diarrhea. Also, denies fever. Notably, the patient was a somewhat poor historian and he was falling asleep while I examined him, and other than the abdominal pain and feeling tired, he really offered no complaint. Upon presentation to the ER, the patient was received with reasonably stable vital signs except for a blood pressure on the lower side. His blood pressure was between 80 and 90 systolic over 40 diastolic. Reassuring, however, that the patient was not tachycardic. His heart rate was between 70 and 80. Temperature was 39.6 Celsius. Oxygen saturation 100% on room air, respiration rate was 18. ER workup showed multiple critical laboratory abnormalities, which included critically low sodium of 118, potassium of 2.6, carbon dioxide 18. Creatinine 1.5, BUN 31, calcium 7.9, albumin 2.6, ammonia 50, alkaline phosphatase 38, AST 44, total bilirubin 2.7. To put these numbers into context, the patient was seen with hyponatremia in the past, but his sodium has never been below 120. In addition, he has not had renal failure in the past. His baseline creatinine was around 1. Additional laboratories included a hematology panel with white blood cell count of 4.7, hemoglobin of 7.7, and a platelet count around 70. Notably, the hemoglobin of 7.7 is lower than the patient previously had. Coagulation studies were in line with previous numbers. INR was 1.5. Urinalysis was negative. At the ER, the patient received about 2 liters normal saline and received some potassium replacement as well. PAST MEDICAL HISTORY 1. History of alcoholic cirrhosis with splenomegaly, portal hypertensive gastropathy, and esophageal varices. 2. History of occult blood positive stool. No recent workup. The patient reports that he had colonoscopy more than 20 years ago. 3. On line, there is a hepatitis A test, which was positive in 07/2016. 4. History of cataract surgery. 5. Noncompliance. 6. 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 7. History of pneumonia. 8. History of electrolyte abnormalities including hyponatremia, hypokalemia, and hypomagnesemia. 9. Recent admission and history of hepatic encephalopathy. ALLERGIES 1. KEPPRA. 2. PALIFERMIN. OUTPATIENT MEDICATIONS Included 1. Rifaximin. 2. Benadryl. 3. Spironolactone. 4. Hydrochlorothiazide. 5. Lasix. 6. Folic acid. 7. Codeine. Notably, the patient could not provide or confirm his medication list. It is unknown whether he took the medications. REVIEW OF SYSTEMS: Please see pertinent positives listed in history of present illness. I completed a 12-point review. The patient was a poor historian. He denied all complaints other than the positives listed above. SOCIAL HISTORY: The patient lives in a van with his and with a dog. He does not smoke and he tells me he quit drinking alcohol more than 7 years ago. CODE STATUS: FULL CODE. FAMILY HISTORY: Reviewed, noncontributory. PHYSICAL EXAMINATION VITAL SIGNS: Please see listed above in history of present illness. GENERAL: The patient is a well developed, chronically ill-appearing male who was not in distress. CARDIOVASCULAR: S1, S2, regular, no obvious murmur, distant heart sounds. RESPIRATORY: Without wheezes or crackles. No increased work of breathing. ABDOMEN: Distended with shifting dullness. At the time of my exam, there was no significant tenderness. There was no guarding or rebound. Bowel sounds were hypoactive, almost silent abdomen. LYMPH: 3+ lymphedema/anasarca up to below the knees, bilaterally symmetric. SKIN: Mild jaundice, no pallor. NEUROLOGIC: With pinpoint pupils, somnolent, but easily arousable. Neurologically nonfocal. PSYCH: Cooperative. ASSESSMENT/ACTIVE ISSUES/DIAGNOSES 1. Encephalopathy. Could be secondary to hepatic encephalopathy plus/minus electrolyte abnormalities, plus/minus possibility of infection or other cause such as gastrointestinal bleed. 2. Having abdominal pain and ascites plus being immunocompromised secondary to chronic liver disease, spontaneous bacterial peritonitis should be considered. 3. Severe electrolyte abnormality, including critical hyponatremia and hypokalemia. I suspect hypomagnesemia as well. 4. Regarding the reason for hyponatremia, it does appear as hypervolemic hyponatremia. I wonder whether the patient's fluid intake consists mostly of water. He is a difficult historian and not much information can be extracted from him. I also wonder whether he skipped taking his diuretics. On clinical grounds, he appears volume overloaded. 5. Question compliance. 6. End-stage liver disease/cirrhosis with portal hypertensive gastropathy and physical and laboratory stigmata of liver disease including coagulopathy, pancytopenia, large abdomen with ascites, peripheral edema, and mild jaundice. PLAN AND ORDERS 1. The patient is getting admitted as inpatient. 2. In the ER, the patient received 2 liters of normal saline. Before continuing with further IV fluid, we will recheck sodium to make sure that correction is not too quick. 3. Potassium replacement was started in the ER. We will continue, check magnesium and phosphorus. 4. Ordered diagnostic paracentesis, ultrasound-guided. We will test ascitic fluid for possible peritonitis. After paracentesis, if positive, will consider starting antibiotics. 5. Regarding anemia, might consider transfusion depending on the clinical course , if hemoglobin further decreases. At 7.7, I would not yet transfuse. 6. I talked to the patient, and I told him that he would require outpatient colonoscopy given recent abnormal CT scan of the abdomen and occult blood positive stool. 7. Regarding coagulopathy, I ordered 1 dose of vitamin K and hopefully paracentesis could be done with this INR 1.5. 8. Regarding the etiology of hyponatremia, it is obviously hypervolemic. For completeness, I added osmolality and urine sodium to the workup. 9. Regarding deep venous thrombosis prophylaxis, the patient does not tolerate pharmacologic prophylaxis given thrombocytopenia and he does not tolerate mechanical prophylaxis due to anasarca and lower extremity swelling. 10. Regarding volume status, the patient is volume overloaded with interstitial edema and interstitial volume overload and intravascular volume depletion, evidenced by renal failure. To improve his volume status and overall situation, we will infuse IV albumin and expect to recruit the interstitial fluid. Diuresis could be considered, perhaps on the second hospital day. On admission, the patient's blood pressure is on the lower side. He would not tolerate diuresis and he will need fluid hydration regarding the electrolyte abnormalities as well. We will follow the clinical course and adjust accordingly. 11. Regarding hepatic encephalopathy, I ordered lactulose and will continue rifaximin. 12. CODE STATUS IS FULL CODE. Time spent for the care of this patient was 60 minutes on this examination. JOB #: [id number] EXT JOB #:[id number] RONIT
[2017-02-09] MEDS ORDERED: POTASSIUM CHLORIDE 20 MEQ TABLET PO SCH (08:00)
[2017-02-09] MEDS: ALBUMIN 25% 50 ML IV SCH ×6 (08:24→20:56)
[2017-02-09] MEDS: POTASSIUM CHLOR 10 MEQ/100 ML 100 ML IV SCH ×2 (09:19→11:34)
[2017-02-09] MEDS: PANTOPRAZOLE 40 MG TABLET PO SCH (09:34)
[2017-02-09] MEDS: FOLIC ACID 1 MG TABLET PO SCH (09:34)
[2017-02-09] MEDS: LACTULOSE 10 GM /15 ML UDC PO SCH ×2 (10:16→18:40)
[2017-02-09] MEDS: POLYETHYLENE GLYCOL 3350 17 GM PACKET PO SCH (10:16)
[2017-02-09 10:32] LABS: BILIRUBIN,URINE NEGATIVE (NEGATIVE)
[2017-02-09] MEDS: rifAXIMin 550 MG TABLET PO SCH ×2 (10:48→20:22)
[2017-02-09 10:50] LABS: UA CHARGE (STRIP ONLY) YES; UR CULTURE IF IND NOT INDICATED; WBC,URINE 0-3 /HPF (0-3)
--- NOTE | 2017-02-09 11:33 | Ultrasound Report ---
LIMITED ABDOMINAL ULTRASOUND: 02/09/2017 CLINICAL INDICATION: Abdominal pain, ascites. TECHNIQUE: Real-time scanning was performed with unit support representative static images obtained. FINDINGS: Ultrasound of the four quadrants was performed. Trace ascites is seen, insufficient to al low for percutaneous sampling. IMPRESSION: ONLY TRACE ASCITES IS PRESENT, INSUFFICIENT VOLUME TO ALLOW FOR PERCUTANEOUS SAMPLING. JOB #: [id number] EXT JOB #:[id number]
[2017-02-09] MEDS: SODIUM CHLORIDE FLUSH 0.9% 10 ML SYRINGE IVP SCH ×2 (13:20→19:03)
[2017-02-10 06:04] LABS: CALCIUM 8.2 mg/dL (8.5-10.3); CREATININE 1.2 mg/dL (0.6-1.2); POTASSIUM 2.8 mmol/L (3.5-5.0)
[2017-02-10] MEDS: SODIUM CHLORIDE FLUSH 0.9% 10 ML SYRINGE IVP SCH ×2 (06:24→13:50)
[2017-02-10] MEDS: PANTOPRAZOLE 40 MG TABLET PO SCH (06:24)
--- NOTE | 2017-02-10 08:13 | PROVIDER PROGRESS NOTE ---
Subjective - Prog Note Date Prog Note Date: 02/10/17 Prog Note Time: 08:12 - Subjective Subjective: he has had a large bloody bowel movement this am encephalopathy has improved but still easily confused, Objective - Vital Signs/Intake & Output Vital Signs: Vital Signs x48h Temp Pulse Resp BP BP Pulse Ox 02/10/17 07:23 36.9 C 84 20 91/36 L 99 02/10/17 06:00 37.2 C 84 18 101/35 L 98 02/10/17 00:28 37.1 C 90 16 94/36 L 98 Intake & Output: Intake & Output 02/07/17 02/08/17 02/09/17 02/10/17 23:59 23:59 23:59 23:59 Intake Total 1691 Output Total 1125 1150 Balance 566 -1150 - Lab Results Fish Bones: 02/10/17 11:45 02/10/17 05:25 Other Labs: Lab Results x24hrs 02/10/17 02/09/17 Range/Units 05:25 08:30 Sodium 128 L (135-145) mmol/L Potassium 2.8 L (3.5-5.0) mmol/L Chloride 103 (101-111) mmol/L Carbon Dioxide 19 L (21-32) mmol/L Anion Gap 6.0 (6-13) BUN 26 H (6-20) mg/dL Creatinine 1.2 (0.6-1.2) mg/dL Estimated GFR (MDRD) 61 L (>89) Glucose 116 H (70-100) mg/dL Calcium 8.2 L (8.5-10.3) mg/dL Urine Color YELLOW Urine Clarity CLEAR (CLEAR) Urine pH 6.0 (5.0-7.5) PH Ur Specific [place] <=1.005 (1.002-1.030) Urine Protein NEGATIVE (NEGATIVE) mg/dL Urine Glucose (UA) NEGATIVE (NEGATIVE) mg/dL Urine Ketones NEGATIVE (NEGATIVE) mg/dL Urine Occult Blood NEGATIVE (NEGATIVE) Urine Nitrite NEGATIVE (NEGATIVE) Urine Bilirubin NEGATIVE (NEGATIVE) Urine Urobilinogen 0.2 (NORMAL) (NORMAL) E.U./dL Ur Leukocyte Esterase NEGATIVE (NEGATIVE) Urine RBC 0-5 (0-5) /HPF Urine WBC 0-3 (0-3) /HPF Ur Squamous Epith Cells NONE SEEN (<= Few) Urine Bacteria None Seen (None Seen) /HPF Urine Mucus Few Strands Ur Microscopic Review NOT INDICATED Urine Culture Comments NOT INDICATED Assessment/Plan - Problem List (1) Gastrointestinal hemorrhage with melena Impression: in a patient with known varices and Hgb is usually 11. have contacted Gen Surg conference assistant and they do not handle this. will need transfer
[2017-02-10] MEDS ORDERED: ACETAMINOPHEN 325 MG TABLET PO ONE (08:18)
[2017-02-10] MEDS ORDERED: FUROSEMIDE 40 MG/4 ML VIAL IVP ONE (10:00)
[2017-02-10] MEDS ORDERED: diphenhydrAMINE INJ 50 MG/ML VIAL IVP ONE (10:00)
[2017-02-10] MEDS ORDERED: cefTRIAXone 2 GM VIAL IVP STA (10:22)
[2017-02-10] MEDS: LACTULOSE 10 GM /15 ML UDC PO SCH ×2 (10:31→15:39)
[2017-02-10] MEDS: POLYETHYLENE GLYCOL 3350 17 GM PACKET PO SCH (10:33)
[2017-02-10] MEDS: FOLIC ACID 1 MG TABLET PO SCH (10:34)
[2017-02-10] MEDS: rifAXIMin 550 MG TABLET PO SCH (10:34)
[2017-02-10] MEDS ORDERED: SODIUM CHLORIDE 0.9% IV SCH (11:00)
[2017-02-10] MEDS ORDERED: CEFTRIAXONE IV SCH (11:00)
[2017-02-10] MEDS ORDERED: OCTREOTIDE 500 MCG in SODIUM CHLORIDE 0.9% 100ML 99 ML IV SCH (11:00)
[2017-02-10] MEDS ORDERED: PANTOPRAZOLE 80 MG in SODIUM CHLORIDE 0.9% 100ML 100 ML IV SCH (11:00)
[2017-02-10] MEDS: POTASSIUM CHLOR 10 MEQ/100 ML 100 ML IV SCH ×4 (11:27→18:37)
[2017-02-10 11:53] LABS: BASOPHILS % (AUTO) 0.3 %; HCT - HEMATOCRIT 21.4 % (42.0-52.0); HGB - HEMOGLOBIN 7.6 g/dL (14.0-18.0); LYMPHOCYTES # (AUTO) 0.5 10^3/uL (1.5-3.5); LYMPHOCYTES % (AUTO) 16.6 %; MEAN CORPUSCULAR HEMOGLOBIN 29.6 pg (27.0-31.0); MEAN CORPUSCULAR HGB CONC 35.4 g/dL (32.0-36.0); MEAN CORPUSCULAR VOLUME 83.6 fL (80.0-94.0); MEAN PLATELET VOLUME 7.1 fL (7.4-11.4); MONOCYTES # (AUTO) 0.3 10^3/uL (0.0-1.0); MONOCYTES % (AUTO) 11.3 %; NEUTROPHILS # (AUTO) 2.1 10^3/uL (1.5-6.6); NEUTROPHILS % (AUTO) 70.8 %; NUCLEATED RED BLOOD CELLS AUTO 0.1 /100WBC; RED BLOOD COUNT 2.56 10^6/uL (4.70-6.10); RED CELL DISTRIBUTION WIDTH 16.7 % (12.0-15.0); UNCORRECTED WHITE BLOOD COUNT 2.9 x10^3/uL; WHITE BLOOD COUNT 2.9 x10^3/uL (4.8-10.8)
[2017-02-10] MEDS: SODIUM CHLORIDE FLUSH 0.9% 10 ML SYRINGE IVP PRN ×3 (13:50→14:37)
[2017-02-10 15:33] VITALS: BP 115/48
--- NOTE | 2017-02-10 15:35 | XRAY Report ---
PORTABLE CHEST: 02/10/2017 HISTORY: For central line placement. COMPARISON: 02/01/2017 FINDINGS/IMPRESSION: NEW RIGHT INTERNAL JUGULAR VENOUS CATHETER ENDS AT THE CAVOATRIAL JUNCTION. NO PNEUMOTHORAX IS SEEN. JOB #: [id number] EXT JOB #:[id number]
[2017-02-10] MEDS: PANTOPRAZOLE IV SCH ×2 (15:36→15:39)
[2017-02-10] MEDS: SODIUM CHLORIDE 0.9% IV SCH ×2 (15:36→15:39)
[2017-02-10] MEDS ORDERED: POTASSIUM CHLOR 10 MEQ/100 ML 100 ML IV SCH (18:00)
--- NOTE | 2017-02-10 19:20 | DISCHARGE SUMMARY ---
DATE OF ADMISSION: 02/09/2017 DATE OF DISCHARGE: 02/10/2017 DISCHARGE DIAGNOSES 1. Lower gastrointestinal bleed. 2. Acute blood loss anemia. 3. Generalized abdominal pain. 4. Hepatic encephalopathy. 5. Alcoholic liver disease with splenomegaly, portal hypertension, esophageal varices. 6. Personal history of noncompliance. MEDICATIONS UPON TRANSFER TO [facility] 1. Rifaximin. 2. Protonix drip. 3. Octreotide drip. 4. Enulose. 5. Ceftriaxone 2 grams. 6. Lasix 40 mg IV push. PRINCIPAL PROCEDURES 1. Abdominal ultrasound to check for ascites showed minimal fluid, not enough for paracentesis. 2 Chest x-ray unremarkable. HOSPITAL COURSE: The patient is a 67-year-old white male with a past medical history of end-stage liver disease from alcoholic liver disease who has portal hypertensive gastropathy, pancytopenia, electrolyte abnormalities. He is noncompliant with his medication regimen and it is unclear if that is because of himself or his . He is currently living out of a van with his . They have rented an RV slot in [place] and live at the RV slot and have electricity and running water. says that sometimes his gets mad at him and that is why he sometimes does not take his medications because she is responsible for giving him his medications. His states that he is noncompliant, and sometimes has to shove medications in his mouth. In any case, he came to our hospital February 01 and was admitted for noncompliance with medications, hepatic encephalopathy, and electrolyte abnormalities, including chronic hyponatremia. He was found to have fecal occult blood positive stool. He states that he did have an EGD many, many years ago in [place] and that he had esophageal varices at that time. He is not clear what hospital, how long ago it was, and he has never been banded. After the admission on February 01, he was resumed on his medications and sent home. He fell back to his usual state of health and developed some left lower quadrant abdominal pain that then became more generalized abdominal aching. He has been sleeping very little because his is bothering him and not letting him sleep. She is very unhappy and angry at being in a van. So he feels like he is tired because of that, not because of anything else. He drinks 2 big bottles of Gatorade every day, 60 ounces. He denies any bloody stool, denies nausea, vomiting. No diarrhea. Denies fever. Other than the generalized abdominal pain and feeling tired, he offered no other complaints. In our emergency room, he was hypotensive in the low 80s. He was not tachycardic , heart rate was between 70 to 80. Temperature was 38.6. O2 saturation 100% on room air. He was found to be a lethargic, disheveled, middle aged white male. An abdomen that was distended and had shifting dullness, but no significant tenderness, no guarding or rebound. Bowel sounds were hyperactive. He had lymphedema/anasarca below the knee bilaterally symmetrical.Memory was poor and was mildly encephalopathic. Laboratory workup in the emergency room showed him to have acute kidney insufficiency. Creatinine is usually 0.6 to 1 and today's creatinine is 1.5. BUN was 31, albumin 2.6. Ammonia 50. AST 44, total bilirubin 2.7. INR is 1.5, which is stable for him. He was initially admitted for just strictly hepatic encephalopathy. We knew that he had fecal occult blood positive stool, but he had not had any al blood or melena. He received 2 liters of normal saline in the emergency room and potassium replacement. Thinking that he had possible ascites causing the abdominal distention, we ordered a diagnostic paracentesis, but there was not enough fluid for radiologist to feel like he could do that. We noted that his hemoglobin was lower than usual. He is usually about 11 grams of hemoglobin and had drifted down to 9.8 after his February 04 discharge and was 7.7 in the emergency room. Platelets were 93 on February 01 and were now down to 71 on admission. He received vitamin K. After being admitted on the , he was resumed on his lactulose and rifaximin , again thinking this was strictly hepatic encephalopathy from noncompliance. On the morning of the , a new hospitalist came on service and this time he was having al bloody stool. Putting together the clinical picture of a patient who was hypotensive, previous history of esophageal varices, I presumed that this patient is having esophageal variceal bleeding. I started him on octreotide, given him ceftriaxone, given him FFP and was in the process of the transfusing him 3 units. I also gave him Lasix to avoid increasing portal hypertension and to gently diurese him in the face of his acute kidney insufficiency. I spoke initially to [facility] and they do not have ICU beds. I then spoke to Mag CALDERON. They initially demurred because they felt that our general surgeon should be able to take care of this GI bleed. I explained to them that we are critical access hospital, we do not have quick access to blood products in case anything goes wrong (it can take up to 4 hours to get blood from the [facility]), and our surgeons are usually discouraged from doing sclerotherapy or injection here at this critical access hospital. As such, the director clinical information services accepted the patient, but asked me to please speak to the Legislators. Legislators accepted the patient in transfer. This is Dr. An , and a bed was found in the afternoon. The patient's blood pressure was now 115/48 upon transfer. Heart rate is 80 and he was afebrile at 36.9. He was 100% saturated on room air. He no longer had generalized abdominal pain. Lungs were diminished at the bases, but essentially clear. He has tolerated the above treatment well. He continues to have edema. Still forgetful. I have spoken to , Vera Pitts. She does not have a phone and can be reached at . This is the phone number for the camp host, Vale, and she will get Vera Pitts to come to the phone. He is transferred in stable condition. However, the prognosis overall and esophageal variceal bleed is not good. His states that she is a nurse and she recognizes this. Greater than 30 minutes was spent in coordinating discharge. Prior to discharge , the patient has had a central line placed to improve access. JOB #: [id number] EXT JOB #:[id number] RONIT
== END 2017-02-10 19:25 | disposition short-term general hospital (02) | DRG 432 ==
LOC: ED 02:45 → MS3 06:38
PROVIDERS: ADMIT Internal Medicine; ATTEND Specialist
PROC: 02HV33Z Insertion of Infusion Device into Superior Vena Cava, Percutaneous Approach (ICD-10-PCS; 2017-02-09)
PROC: 30233K1 Transfusion of Nonautologous Frozen Plasma into Peripheral Vein, Percutaneous Approach (ICD-10-PCS; principal; 2017-02-10)
PROC: 30233N1 Transfusion of Nonautologous Red Blood Cells into Peripheral Vein, Percutaneous Approach (ICD-10-PCS; 2017-02-10)
DX: K70.31 Alcoholic cirrhosis of liver with ascites (principal); I85.11 Secondary esophageal varices with bleeding; D61.811 Other drug-induced pancytopenia; I11.0 Hypertensive heart disease with heart failure; I50.9 Heart failure, unspecified; D62 Acute posthemorrhagic anemia; E87.1 Hypo-osmolality and hyponatremia; K76.6 Portal hypertension; N17.9 Acute kidney failure, unspecified; F10.188 Alcohol abuse with other alcohol-induced disorder; R10.84 Generalized abdominal pain; K72.90 Hepatic failure, unspecified without coma; R16.1 Splenomegaly, not elsewhere classified; K31.89 Other diseases of stomach and duodenum; E87.6 Hypokalemia; E83.42 Hypomagnesemia; E86.0 Dehydration; E87.70 Fluid overload, unspecified; H54.7 Unspecified visual loss; H91.90 Unspecified hearing loss, unspecified ear; Z79.891 Long term (current) use of opiate analgesic; Z79.899 Other long term (current) drug therapy; Z91.14 Patient's other noncompliance with medication regimen; Z87.01 Personal history of pneumonia (recurrent); Z59.0 Homelessness
CPT/HCPCS: 36415; 71010; 76705; 80048; 80053; 80306; 81001; 81003; 82140; 82270; 83690; 83735; 83930; 83935; 84100; 84295; 84300; 85014; 85018; 85025; 85610; 86850; 86900; 86901; 86920; 87086; 93005; 96361; 96374; 99284; 99285

== ENCOUNTER 2017-02-23 13:52 | Outpatient (CLI) | payer MEDICARE, OTHER ==
[2017-02-23 19:17] LABS: BASOPHILS % (AUTO) 0.3 %; EOSINOPHILS % (AUTO) 1.1 %; HCT - HEMATOCRIT 23.3 % (42.0-52.0); HGB - HEMOGLOBIN 7.8 g/dL (14.0-18.0); LYMPHOCYTES # (AUTO) 0.5 10^3/uL (1.5-3.5); LYMPHOCYTES % (AUTO) 19.3 %; MEAN CORPUSCULAR HEMOGLOBIN 28.6 pg (27.0-31.0); MEAN CORPUSCULAR HGB CONC 33.7 g/dL (32.0-36.0); MEAN CORPUSCULAR VOLUME 84.9 fL (80.0-94.0); MEAN PLATELET VOLUME 7.2 fL (7.4-11.4); MONOCYTES # (AUTO) 0.2 10^3/uL (0.0-1.0); MONOCYTES % (AUTO) 8.9 %; NEUTROPHILS # (AUTO) 1.7 10^3/uL (1.5-6.6); NEUTROPHILS % (AUTO) 70.4 %; NUCLEATED RED BLOOD CELLS AUTO 0.2 /100WBC; RED BLOOD COUNT 2.74 10^6/uL (4.70-6.10); RED CELL DISTRIBUTION WIDTH 16.8 % (12.0-15.0); UNCORRECTED WHITE BLOOD COUNT 2.4 x10^3/uL; WHITE BLOOD COUNT 2.4 x10^3/uL (4.8-10.8)
[2017-02-23 19:41] LABS: ALBUMIN/GLOBULIN RATIO 1.1 (1.0-2.2); BILIRUBIN,TOTAL 2.5 mg/dL (0.2-1.0); CALCIUM 8.1 mg/dL (8.5-10.3); CREATININE 0.9 mg/dL (0.6-1.2); POTASSIUM 2.9 mmol/L (3.5-5.0); TOTAL PROTEIN 5.6 g/dL (6.7-8.2)
[2017-02-23 20:20] LABS: PLATELET ESTIMATE, MANUAL DECREASED (<130,000) (NORMAL)
== END 2017-02-23 13:53 | disposition home or self-care (01) ==
LOC: LAB.WCP 13:52
PROVIDERS: ATTEND Physician Assistant Medical
DX: K92.2 Gastrointestinal hemorrhage, unspecified (principal)
CPT/HCPCS: 36415; 80053; 85025

== ENCOUNTER 2017-03-02 08:41 | Inpatient (IN) | payer MEDICARE, OTHER ==
[2017-03-02 09:34] LABS: EOSINOPHILS % (AUTO) 1.2 %; HCT - HEMATOCRIT 23.3 % (42.0-52.0); HGB - HEMOGLOBIN 7.8 g/dL (14.0-18.0); LYMPHOCYTES # (AUTO) 0.7 10^3/uL (1.5-3.5); LYMPHOCYTES % (AUTO) 16.7 %; MEAN CORPUSCULAR HEMOGLOBIN 27.1 pg (27.0-31.0); MEAN CORPUSCULAR HGB CONC 33.6 g/dL (32.0-36.0); MEAN CORPUSCULAR VOLUME 80.6 fL (80.0-94.0); MEAN PLATELET VOLUME 6.8 fL (7.4-11.4); MONOCYTES # (AUTO) 0.4 10^3/uL (0.0-1.0); MONOCYTES % (AUTO) 9.2 %; NEUTROPHILS % (AUTO) 71.9 %; NUCLEATED RED BLOOD CELLS AUTO 0.1 /100WBC; RED BLOOD COUNT 2.89 10^6/uL (4.70-6.10); UNCORRECTED WHITE BLOOD COUNT 4.2 x10^3/uL; WHITE BLOOD COUNT 4.2 x10^3/uL (4.8-10.8)
[2017-03-02 09:43] LABS: BILIRUBIN,TOTAL 5.3 mg/dL (0.2-1.0); CALCIUM 8.5 mg/dL (8.5-10.3); POTASSIUM 3.3 mmol/L (3.5-5.0); TOTAL PROTEIN 6.1 g/dL (6.7-8.2)
[2017-03-02 09:49] LABS: INR 1.6 (0.8-1.2); PT - PROTHROMBIN TIME 18.3 secs (9.9-12.6)
--- NOTE | 2017-03-02 09:57 | ED Physician Documentation ---
History of Present Illness - Stated complaint Stated Complaint: ABD SWOLLEN/COMBATIVE - Chief complaint Chief Complaint: Abd Pain - History obtained from History obtained from: Patient, Family - History of Present Illness Timing: How many days ago (5) - Additonal information Additional information: 67-year-old homeless male with a history of cirrhosis has been noncompliant and has not taken his lactulose or Xifaxan. He has become more confused over the last 5 days. His has brought him here to the hospital.The patient indicates that he just does not like to take the lactulose and exhibits poor understanding of its mechanism of action. Review of Systems Unable to obtain: Confused Constitutional: denies: Fever Eyes: denies: Decreased vision Ears: denies: Ear pain Nose: denies: Congestion Throat: denies: Sore throat Cardiac: denies: Chest pain / pressure Respiratory: denies: Dyspnea, Cough GI: reports: Nausea. denies: Abdominal Pain : denies: Dysuria, Frequency Skin: denies: Rash Musculoskeletal: denies: Neck pain, Back pain Neurologic: reports: Generalized weakness. denies: Focal weakness, Numbness PD PAST MEDICAL HISTORY - Past Medical History Past Medical History: Yes Cardiovascular: Congestive heart failure, Hypertension Respiratory: None Neuro: Other Endocrine/Autoimmune: Other GI: Esophageal varices, Cirrhosis : None HEENT: Chronic vision loss, Chronic hearing loss Psych: None Musculoskeletal: None Derm: Other - Past Surgical History Past Surgical History: Yes General: Colonoscopy HEENT: Cataracts - Present Medications Home Medications: Ambulatory Orders Medication Instructions Recorded Confirmed diphenhydrAMINE [Benadryl] 25 mg PO Q6H PRN 12/14/13 02/09/17 Codeine Sulfate 15 mg PO BID 01/01/17 02/09/17 Furosemide [Lasix] 20 mg PO BID 02/01/17 02/09/17 rifAXIMin [Xifaxan] 550 mg PO BID 02/01/17 02/09/17 Folic Acid 1 mg PO DAILY #30 tablet 02/04/17 02/09/17 Pantoprazole [Protonix] 40 mg PO DAILY 02/09/17 02/09/17 Potassium Chloride 20 meq PO DAILY 02/09/17 02/09/17 Spironolactone [Spironolactone] 50 mg PO BID 02/09/17 02/09/17 Thiamine HCl [Vitamin B-1] 50 mg PO DAILY 02/09/17 02/09/17 - Allergies Allergies/Adverse Reactions: Allergies Allergy/AdvReac Type Severity Reaction Status Date / Time levetiracetam [From Keppra] Allergy Unknown Verified 02/01/17 09:59 palifermin [From Kepivance] Allergy Unknown Verified 02/01/17 09:59 - Social History Does the pt smoke?: No Smoking Status: Never smoker - Immunizations Immunizations: TDAP >10years/unknown - POLST Patient has POLST: No POLST Status: Full Code (pt report he want to be full code.) PD ED PE NORMAL - Vitals Vital signs reviewed: Yes (hypertensive with wide pulse pressure. ) - General General: No acute distress, Well developed/nourished - HEENT HEENT: Atraumatic, PERRL - Neck Neck: Supple, no meningeal sign - Cardiac Cardiac: RRR, No murmur - Respiratory Respiratory: No respiratory distress, Clear bilaterally - Abdomen Abdomen: Soft, Non tender, Other (distended with ascites and not tense or tender. ) - Back Back: No CVA TTP, No spinal TTP - Derm Derm: Normal color, Warm and dry, No rash - Extremities Extremities: No deformity, Other (There is bilateral edema with deep sock justin and edema to the knee. ) - Neuro Neuro: No motor deficit, No sensory deficit, Other (speech is mildly dysarthric. ) - Psych Psych: Normal mood, Normal affect Results - Vitals Vitals: Vital Signs - 24 hr 03/02/17 03/02/17 08:48 11:07 Temperature 36.4 C L Heart Rate 86 82 Respiratory 20 16 Rate Blood Pressure 140/67 H 119/62 O2 Saturation 100 100 Oxygen O2 Source Room air - Labs Labs: Laboratory Tests 03/02/17 03/02/17 03/02/17 09:20 09:20 09:20 WBC 4.2 L RBC 2.89 L Hgb 7.8 L Hct 23.3 L MCV 80.6 MCH 27.1 MCHC 33.6 RDW 17.0 H Plt Count 85 L MPV 6.8 L Neut # 3.0 Lymph # 0.7 L [place] # 0.4 Eos # 0.0 Baso # 0.0 Absolute Nucleated RBC 0.00 Band Neuts % (Manual) Not Reportable Nucleated RBC % 0.1 Differential Comment MANUAL=AUTO DIFF RBC Morph Micro Appear 1+ POLYCHROMASIA PT 18.3 H INR 1.6 H Sodium 133 L Potassium 3.3 L Chloride 101 Carbon Dioxide 22 Anion Gap 10.0 BUN 14 Creatinine 1.0 Estimated GFR (MDRD) 75 L Glucose 139 H Calcium 8.5 Total Bilirubin 5.3 H AST 33 ALT 16 Alkaline Phosphatase 35 L Ammonia Total Protein 6.1 L Albumin 3.0 L Globulin 3.1 Albumin/Globulin Ratio 1.0 Lipase 22 Urine Color Urine Clarity Urine pH Ur Specific [place] Urine Protein Urine Glucose (UA) Urine Ketones Urine Occult Blood Urine Nitrite Urine Bilirubin Urine Urobilinogen Ur Leukocyte Esterase Ur Microscopic Review Urine Culture Comments Blood Type Antibody Screen 03/02/17 03/02/17 03/02/17 10:48 10:48 11:55 WBC RBC Hgb Hct MCV MCH MCHC RDW Plt Count MPV Neut # Lymph # [place] # Eos # Baso # Absolute Nucleated RBC Band Neuts % (Manual) Nucleated RBC % Differential Comment RBC Morph Micro Appear PT INR Sodium Potassium Chloride Carbon Dioxide Anion Gap BUN Creatinine Estimated GFR (MDRD) Glucose Calcium Total Bilirubin AST ALT Alkaline Phosphatase Ammonia 60.4 H Total Protein Albumin Globulin Albumin/Globulin Ratio Lipase Urine Color ORANGE Urine Clarity CLEAR Urine pH 7.0 Ur Specific [place] 1.010 Urine Protein NEGATIVE Urine Glucose (UA) NEGATIVE Urine Ketones NEGATIVE Urine Occult Blood NEGATIVE Urine Nitrite NEGATIVE Urine Bilirubin NEGATIVE Urine Urobilinogen >=8.0 H Ur Leukocyte Esterase NEGATIVE Ur Microscopic Review NOT INDICATED Urine Culture Comments NOT INDICATED Blood Type A NEGATIVE Antibody Screen NEGATIVE Procedures - IVC sono (time) 1215 Bedside IVC sono: IVC measures (cm) (1.37), IVC collapsed c insp (cm) (complete) , Dehydration (mild) PD MEDICAL DECISION MAKING - ED course Complexity details: reviewed old records, reviewed results, re-evaluated patient , considered differential, d/w patient, d/w family ED course: 67-year-old homeless noncompliant male with cirrhosis has hepatic encephalopathy. This is his third admission to the hospital for hepatic encephalopathy with noncompliance. Here in the emergency department he is administered lactulose. Departure - Departure Disposition: 66 [facility] DC/Xfer Clinical Impression: Hepatic encephalopathy Condition: Stable
[2017-03-02 10:00] LABS: NP AUTO DIFFERENTIAL? NO; NP MAN DIFFERENTIAL? YES
[2017-03-02 12:13] LABS: BILIRUBIN,URINE NEGATIVE (NEGATIVE)
[2017-03-02 12:14] LABS: UA CHARGE (STRIP ONLY) YES; UR CULTURE IF IND NOT INDICATED
[2017-03-02] MEDS ORDERED: LACTULOSE 10 GM /15 ML UDC PO STA (12:30)
[2017-03-02] MEDS ORDERED: LACTULOSE 10 GM /15 ML UDC ONE ×2 (12:49→12:53)
[2017-03-02] MEDS ORDERED: SODIUM CHLORIDE FLUSH 0.9% 10 ML SYRINGE IVP PRN (13:26)
[2017-03-02] MEDS ORDERED: ONDANSETRON 4 MG/2 ML VIAL IVP PRN (13:26)
[2017-03-02] MEDS ORDERED: oxyCODONE 5 MG TABLET PO PRN (13:26)
[2017-03-02] MEDS ORDERED: ONDANSETRON ODT 4 MG TABLET TL PRN (13:26)
[2017-03-02] MEDS ORDERED: diphenhydrAMINE 25 MG CAPSULE PO PRN (13:29)
[2017-03-02] MEDS ORDERED: NALOXONE 0.4 MG/ML VIAL IVP STA (13:31)
[2017-03-02] MEDS ORDERED: SODIUM CHLORIDE 0.9% 1,000 ML IV SCH (14:00)
[2017-03-02] MEDS: PANTOPRAZOLE 40 MG TABLET PO SCH (14:54)
[2017-03-02] MEDS: LACTULOSE 10 GM/15 ML BOTTLE PR SCH ×2 (14:55→20:32)
[2017-03-02] MEDS: SODIUM CHLORIDE FLUSH 0.9% 10 ML SYRINGE IVP SCH ×2 (14:58→20:31)
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
[2017-03-02] MEDS: rifAXIMin 550 MG TABLET PO SCH (20:31)
[2017-03-02] MEDS: FUROSEMIDE 20 MG TABLET PO SCH (20:31)
[2017-03-02] MEDS: SPIRONOLACTONE 25 MG TABLET PO SCH (20:31)
[2017-03-02] MEDS: CODEINE SULFATE PO SCH (20:33)
[2017-03-03] MEDS: PANTOPRAZOLE 40 MG TABLET PO SCH (06:38)
[2017-03-03] MEDS: SODIUM CHLORIDE FLUSH 0.9% 10 ML SYRINGE IVP SCH ×3 (06:38→20:42)
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
[2017-03-03] MEDS: CODEINE SULFATE PO SCH ×2 (08:46→21:57)
[2017-03-03] MEDS: THIAMINE 100 MG TABLET PO SCH (08:47)
[2017-03-03] MEDS: FOLIC ACID 1 MG TABLET PO SCH (08:47)
[2017-03-03] MEDS: FUROSEMIDE 20 MG TABLET PO SCH ×2 (08:48→16:34)
[2017-03-03] MEDS: LACTULOSE 10 GM/15 ML BOTTLE PR SCH (08:48)
[2017-03-03] MEDS: POTASSIUM CHLORIDE 20 MEQ TABLET PO SCH (08:48)
[2017-03-03] MEDS: SPIRONOLACTONE 25 MG TABLET PO SCH ×2 (08:48→16:33)
[2017-03-03] MEDS: rifAXIMin 550 MG TABLET PO SCH ×2 (08:48→22:03)
[2017-03-03] MEDS: POLYETHYLENE GLYCOL 3350 17 GM PACKET PO SCH (08:48)
[2017-03-03 09:22] LABS: BASOPHILS % (AUTO) 1.2 %; EOSINOPHILS % (AUTO) 1.7 %; HCT - HEMATOCRIT 20.2 % (42.0-52.0); LYMPHOCYTES # (AUTO) 0.6 10^3/uL (1.5-3.5); MEAN CORPUSCULAR HEMOGLOBIN 27.1 pg (27.0-31.0); MEAN CORPUSCULAR HGB CONC 33.5 g/dL (32.0-36.0); MEAN CORPUSCULAR VOLUME 80.7 fL (80.0-94.0); MONOCYTES # (AUTO) 0.3 10^3/uL (0.0-1.0); MONOCYTES % (AUTO) 9.4 %; NEUTROPHILS # (AUTO) 1.8 10^3/uL (1.5-6.6); NEUTROPHILS % (AUTO) 65.7 %; NUCLEATED RED BLOOD CELLS AUTO 0.2 /100WBC; RED BLOOD COUNT 2.51 10^6/uL (4.70-6.10); RED CELL DISTRIBUTION WIDTH 16.9 % (12.0-15.0); UNCORRECTED WHITE BLOOD COUNT 2.8 x10^3/uL; WHITE BLOOD COUNT 2.8 x10^3/uL (4.8-10.8)
[2017-03-03 09:36] LABS: CALCIUM 8.4 mg/dL (8.5-10.3); POTASSIUM 3.4 mmol/L (3.5-5.0)
[2017-03-03 10:08] LABS: HGB - HEMOGLOBIN 6.8 g/dL (14.0-18.0)
[2017-03-03 10:09] LABS: PLATELET ESTIMATE, MANUAL DECREASED (<130,000) (NORMAL); PLATELET MORPHOLOGY NORMAL APPEARANCE (NORMAL)
[2017-03-03] MEDS ORDERED: ACETAMINOPHEN 325 MG TABLET PO ONE (11:05)
[2017-03-03] MEDS ORDERED: diphenhydrAMINE 25 MG CAPSULE PO ONE (13:00)
[2017-03-03] MEDS ORDERED: SODIUM CHLORIDE 0.9% 250 ML IV ONE ×2 (13:46→17:34)
[2017-03-03] MEDS: LACTULOSE 10 GM /15 ML UDC PO SCH (22:03)
[2017-03-04 05:56] LABS: BASOPHILS % (AUTO) 0.7 %; EOSINOPHILS % (AUTO) 1.7 %; HCT - HEMATOCRIT 24.7 % (42.0-52.0); HGB - HEMOGLOBIN 8.3 g/dL (14.0-18.0); LYMPHOCYTES # (AUTO) 0.8 10^3/uL (1.5-3.5); LYMPHOCYTES % (AUTO) 28.8 %; MEAN CORPUSCULAR HEMOGLOBIN 26.8 pg (27.0-31.0); MEAN CORPUSCULAR HGB CONC 33.7 g/dL (32.0-36.0); MEAN CORPUSCULAR VOLUME 79.8 fL (80.0-94.0); MONOCYTES # (AUTO) 0.3 10^3/uL (0.0-1.0); NEUTROPHILS # (AUTO) 1.6 10^3/uL (1.5-6.6); NEUTROPHILS % (AUTO) 58.8 %; NUCLEATED RED BLOOD CELLS AUTO 0.1 /100WBC; RED CELL DISTRIBUTION WIDTH 16.9 % (12.0-15.0); UNCORRECTED WHITE BLOOD COUNT 2.8 x10^3/uL; WHITE BLOOD COUNT 2.8 x10^3/uL (4.8-10.8)
[2017-03-04 06:07] LABS: ALBUMIN/GLOBULIN RATIO 0.9 (1.0-2.2); BILIRUBIN,TOTAL 4.1 mg/dL (0.2-1.0); CALCIUM 8.3 mg/dL (8.5-10.3); POTASSIUM 3.1 mmol/L (3.5-5.0); TOTAL PROTEIN 5.2 g/dL (6.7-8.2)
[2017-03-04] MEDS: PANTOPRAZOLE 40 MG TABLET PO SCH (06:29)
[2017-03-04] MEDS: SPIRONOLACTONE 25 MG TABLET PO SCH ×2 (06:29→13:32)
[2017-03-04] MEDS: SODIUM CHLORIDE FLUSH 0.9% 10 ML SYRINGE IVP SCH ×2 (06:29→13:32)
[2017-03-04] MEDS: FUROSEMIDE 20 MG TABLET PO SCH ×2 (06:30→13:32)
[2017-03-04 06:43] LABS: PLATELET ESTIMATE, MANUAL DECREASED (<130,000) (NORMAL); PLATELET MORPHOLOGY NORMAL APPEARANCE (NORMAL)
[2017-03-04] MEDS: rifAXIMin 550 MG TABLET PO SCH (08:57)
[2017-03-04] MEDS: POTASSIUM CHLORIDE 20 MEQ TABLET PO SCH (08:57)
[2017-03-04] MEDS: CODEINE SULFATE PO SCH (08:57)
[2017-03-04] MEDS: FOLIC ACID 1 MG TABLET PO SCH (08:57)
[2017-03-04] MEDS: POLYETHYLENE GLYCOL 3350 17 GM PACKET PO SCH (08:57)
[2017-03-04] MEDS: THIAMINE 100 MG TABLET PO SCH (08:57)
[2017-03-04] MEDS: LACTULOSE 10 GM /15 ML UDC PO SCH (08:59)
[2017-03-04] MEDS ORDERED: POTASSIUM CHLORIDE 20 MEQ TABLET PO ONE (15:00)
--- NOTE | 2017-03-04 15:04 | Discharge Plan ---
Discharge Plan Disposition: 01 Home, Self Care Condition: Fair Prescriptions: Lactulose 30 gm PO TID #7 bottle Diet: Low Sodium Activity Restrictions: Activity as Tolerated Shower Restrictions: No Driving Restrictions: Yes (noncompliant with meds) Weight Bearing: Partial Weight Additional Instructions or Follow Up instructions: followup with PCP this week No Smoking: If you smoke, Please STOP! Call for help. Follow-up with: Lisa Grayson PA-C [Primary Care Provider] -
--- NOTE | 2017-03-04 15:14 | DISCHARGE SUMMARY ---
Discharge Summary Admit Date: 03/02/17 Discharge Date: 03/04/17 Discharging Provider: Dr. Vera Dumont Primary Care Provider: Lisa Grayson Condition at Discharge: Fair Discharge Disposition: 01 Home, Self Care - DIAGNOSES Admission Diagnoses: Hepatic Encephalopathy, Hypokalemia, Hyponatremia, Noncompliance with home medications, Hx of esophageal bleeding Discharge Diagnoses with Status of Each Condition: Hepatic Encephalopathy-improved, Hypokalemia-improved, Hyponatremia-improved, Noncompliance with home medications, Hx of esophageal bleeding - HPI History of Present Illness: The patient was admitted with hepatic encephalopathy that was treated with lactulose. His hypokalemia was treated with potassium chloride, and he received 60 mEq before being discharged; his hyponatremia was treated with IV .9 NS. He was placed on SCDs to prevent DVT. He improved was D/C to home to follow-up with his PCP this week. He received a prescription for lactulose (lactulose 30g po tid 7 bottles) before being discharged. - HOSPITAL COURSE Hospital Course: The patient was admitted with hepatic encephalopathy that was treated with lactulose. His hypokalemia was treated with potassium chloride.He received 60 mEq of potassium chloride before discharge. His hyponatremia was treated with IV .9 NS. He was placed in SCDs to prevent DVT. He improved and was discharged to home. He will follow-up with his PCP this week. He received a prescription for lactulose (lactulose 30 g po tid 7 bottles) before discharge. - ALLERGIES Allergies/Adverse Reactions: Allergies Allergy/AdvReac Type Severity Reaction Status Date / Time levetiracetam [From Keppra] Allergy Unknown Verified 02/01/17 09:59 palifermin [From Kepivance] Allergy Unknown Verified 02/01/17 09:59 - MEDICATIONS Home Medications: Ambulatory Orders Medication Instructions Recorded Confirmed diphenhydrAMINE [Benadryl] 25 mg PO Q6H PRN 12/14/13 03/02/17 Codeine Sulfate 15 mg PO BID 01/01/17 02/09/17 Furosemide [Lasix] 20 mg PO BID 02/01/17 03/02/17 rifAXIMin [Xifaxan] 550 mg PO BID 02/01/17 03/02/17 Folic Acid 1 mg PO DAILY #30 tablet 02/04/17 03/02/17 Pantoprazole [Protonix] 40 mg PO DAILY 02/09/17 03/02/17 Potassium Chloride 20 meq PO DAILY 02/09/17 03/02/17 Spironolactone 50 mg PO BID 02/09/17 03/02/17 Thiamine HCl [Vitamin B-1] 50 mg PO DAILY 02/09/17 03/02/17 Lactulose 30 gm PO TID #7 bottle 03/04/17 - PHYSICAL EXAM AT DISCHARGE General Appearance: positive: No acute distress, Alert Eyes Bilateral: positive: Normal inspection, PERRL Neck: positive: Nml inspection Respiratory: positive: Chest non-tender, No respiratory distress, Breath sounds nml Cardiovascular: positive: Regular rate & rhythm, Other (soft systolic ejection murmur at left lower sternal border) Peripheral Pulses: positive: 2+ Abdomen: positive: Non-tender, Nml bowel sounds, Other (distended) Skin: positive: Color nml Extremities: positive: Full ROM, Other (slight pedal edema) Neurologic/Psychiatric: positive: Oriented x3, CN's nml (2-12) - LABS Result Diagrams: 03/04/17 05:09 03/04/17 05:09 - FOLLOW UP Follow Up: Follow-up with EDUARDO Martines in this week. - TIME SPENT Time Spent in Discharge (Minutes): 60
[2017-03-04 15:46] VITALS: BP 147/58
== END 2017-03-04 15:45 | disposition home or self-care (01) | DRG 433 ==
LOC: ED 08:41 → MS2 13:26
PROVIDERS: ADMIT Specialist
PROC: 30233N1 Transfusion of Nonautologous Red Blood Cells into Peripheral Vein, Percutaneous Approach (ICD-10-PCS; principal; 2017-03-03)
DX: K72.90 Hepatic failure, unspecified without coma (principal); K70.40 Alcoholic hepatic failure without coma; E87.1 Hypo-osmolality and hyponatremia; Z91.128 Patient's intentional underdosing of medication regimen for other reason; I85.10 Secondary esophageal varices without bleeding; K76.6 Portal hypertension; K74.60 Unspecified cirrhosis of liver; E87.6 Hypokalemia; D50.0 Iron deficiency anemia secondary to blood loss (chronic); R16.1 Splenomegaly, not elsewhere classified; I11.0 Hypertensive heart disease with heart failure; I50.9 Heart failure, unspecified; K31.89 Other diseases of stomach and duodenum; T47.3X6A Underdosing of saline and osmotic laxatives, initial encounter; T50.0X6A Underdosing of mineralocorticoids and their antagonists, initial encounter; T36.6X6A Underdosing of rifampicins, initial encounter; T50.3X6A Underdosing of electrolytic, caloric and water-balance agents, initial encounter; T47.1X6A Underdosing of other antacids and anti-gastric-secretion drugs, initial encounter; T50.1X6A Underdosing of loop [high-ceiling] diuretics, initial encounter; T45.8X6A Underdosing of other primarily systemic and hematological agents, initial encounter; Z87.891 Personal history of nicotine dependence; Z91.14 Patient's other noncompliance with medication regimen; Z59.0 Homelessness
CPT/HCPCS: 36415; 80048; 80053; 81001; 81003; 82140; 83690; 85025; 85610; 86850; 86900; 86901; 86920; 87086; 99283; 99284; 99285

== ENCOUNTER 2017-05-07 11:27 | Observation (INO) | payer MEDICARE, OTHER ==
[2017-05-07 12:27] LABS: BILIRUBIN,URINE NEGATIVE (NEGATIVE)
[2017-05-07 12:30] LABS: UA CHARGE (STRIP ONLY) YES; UR CULTURE IF IND NOT INDICATED
[2017-05-07 12:33] LABS: BASOPHILS % (AUTO) 0.7 %; EOSINOPHILS # (AUTO) 0.1 10^3/uL (0.0-0.7); EOSINOPHILS % (AUTO) 1.3 %; HCT - HEMATOCRIT 24.5 % (42.0-52.0); HGB - HEMOGLOBIN 8.2 g/dL (14.0-18.0); LYMPHOCYTES # (AUTO) 0.4 10^3/uL (1.5-3.5); LYMPHOCYTES % (AUTO) 9.2 %; MEAN CORPUSCULAR HGB CONC 33.4 g/dL (32.0-36.0); MEAN CORPUSCULAR VOLUME 65.9 fL (80.0-94.0); MEAN PLATELET VOLUME 7.9 fL (7.4-11.4); MONOCYTES # (AUTO) 0.4 10^3/uL (0.0-1.0); MONOCYTES % (AUTO) 9.4 %; NEUTROPHILS # (AUTO) 3.7 10^3/uL (1.5-6.6); NEUTROPHILS % (AUTO) 79.4 %; RED BLOOD COUNT 3.71 10^6/uL (4.70-6.10); RED CELL DISTRIBUTION WIDTH 23.6 % (12.0-15.0); UNCORRECTED WHITE BLOOD COUNT 4.7 x10^3/uL; WHITE BLOOD COUNT 4.7 x10^3/uL (4.8-10.8)
--- NOTE | 2017-05-07 12:39 | ED Physician Documentation ---
History of Present Illness - Stated complaint Stated Complaint: BILAT LEG SWELLING - Chief complaint Chief Complaint: General - History obtained from History obtained from: Patient, Family (spouse) - Additonal information Additional information: Patient is a 67-year-old male with a history of alcoholic cirrhosis and hepatic encephalopathy, who presents with increased confusion and swelling of his legs bilaterally. His , who is responsible for his coming to the emergency department, states that he has become less cognitively aware the last few days, like he gets when his ammonia level is getting too high. On review of systems he denies headache, chest pain, shortness of breath, abdominal pain, nausea or vomiting. He reports frequency of urination, without dysuria. His diuretic therapy is currently Lasix 40 mg twice daily and Aldactone 100 mg in the morning and 50 mg in the evening. Bumex has been prescribed but his has not yet picked up the medication from the pharmacy. Review of his medical record reveals 3 hospitalizations in January to February of this year for hepatic encephalopathy and for GI bleed requiring transfusion. He denies any recent change in color of his stools. Review of Systems Constitutional: reports: Fatigue. denies: Fever Ears: denies: Tinnitus/ringing Nose: denies: Congestion Throat: denies: Sore throat Cardiac: denies: Chest pain / pressure Respiratory: denies: Dyspnea, Cough GI: denies: Abdominal Pain, Nausea, Vomiting : reports: Frequency. denies: Dysuria Skin: denies: Rash Musculoskeletal: reports: Extremity swelling. denies: Extremity pain Neurologic: denies: Focal weakness, Numbness, Headache PD PAST MEDICAL HISTORY - Past Medical History Cardiovascular: Congestive heart failure, Hypertension Respiratory: None Neuro: Other (Hepatic Encephalopathy) Endocrine/Autoimmune: Other GI: Esophageal varices, Cirrhosis : None, Other HEENT: Chronic vision loss, Chronic hearing loss Psych: None, Depression Musculoskeletal: None, Chronic back pain Derm: Other - Past Surgical History Past Surgical History: Yes General: Colonoscopy HEENT: Cataracts - Present Medications Home Medications: Ambulatory Orders Medication Instructions Recorded Confirmed Furosemide [Lasix] 40 mg PO BID 02/01/17 05/07/17 Spironolactone 100 mg PO DAILY 02/09/17 05/07/17 Thiamine HCl [Vitamin B-1] 50 mg PO DAILY 02/09/17 05/07/17 Acetaminophen/Cod 300/30 [Tylenol 1 tab PO BID PRN 05/07/17 05/07/17 #3] Bumetanide 2 mg PO BID 05/07/17 05/07/17 Ferrous Sulfate 325 mg PO BID 05/07/17 05/07/17 Fluticasone [Flonase] 2 sprays ANA BID 05/07/17 05/07/17 Folic Acid 1 mg PO DAILY 05/07/17 05/07/17 Saccharomyces Boulardii [Florastor] 250 mg PO BID 05/07/17 05/07/17 Spironolactone 50 mg PO QPM 05/07/17 05/07/17 rifAXIMin [Xifaxan] 550 mg PO BID 05/07/17 05/07/17 - Allergies Allergies/Adverse Reactions: Allergies Allergy/AdvReac Type Severity Reaction Status Date / Time levetiracetam [From Keppra] Allergy Unknown Verified 05/07/17 11:38 palifermin [From Kepivance] Allergy Unknown Verified 05/07/17 11:38 - Social History Does the pt smoke?: No Smoking Status: Never smoker - Immunizations Immunizations: TDAP >10years/unknown - POLST Patient has POLST: No POLST Status: Full Code (pt report he want to be full code.) PD ED PE NORMAL - Vitals Vital signs reviewed: Yes (hypertensive) - General General: Alert and oriented X 3 - HEENT HEENT: Atraumatic, Other (anicteric sclera) - Neck Neck: Supple, no meningeal sign, No adenopathy, No JVD - Cardiac Cardiac: RRR, No murmur - Respiratory Respiratory: No respiratory distress, Other (Faint crackles at the right base.) - Abdomen Abdomen: Soft, Non tender, Other (Distended with ascites, nontense. Hepatomegaly.) - Back Back: No CVA TTP - Derm Derm: No rash - Extremities Extremities: Other (Tense pedal edema bilaterally, extending to knees.) - Neuro Neuro: Alert and oriented X 3, No motor deficit, No sensory deficit, Normal speech, Other (Slightly confused, but knows the month is April.) Results - Vitals Vitals: Vital Signs - 24 hr 05/07/17 05/07/17 11:33 14:41 Temperature 36.3 C L Heart Rate 82 81 Respiratory 16 16 Rate Blood Pressure 149/71 H 119/63 O2 Saturation 100 100 Oxygen O2 Source Room air - Labs Labs: Laboratory Tests 05/07/17 05/07/17 05/07/17 12:21 12:23 12:23 WBC 4.7 L RBC 3.71 L Hgb 8.2 L Hct 24.5 L MCV 65.9 L MCH 22.0 L MCHC 33.4 RDW 23.6 H Plt Count 81 L MPV 7.9 Neut # 3.7 Lymph # 0.4 L [place] # 0.4 Eos # 0.1 Baso # 0.0 Absolute Nucleated RBC 0.00 Nucleated RBC % 0.0 PT 19.0 H INR 1.7 H Sodium Potassium Chloride Carbon Dioxide Anion Gap BUN Creatinine Estimated GFR (MDRD) Glucose Lactic Acid Calcium Total Bilirubin AST ALT Alkaline Phosphatase Ammonia Total Protein Albumin Globulin Albumin/Globulin Ratio Lipase Urine Color YELLOW Urine Clarity CLEAR Urine pH 6.0 Ur Specific [place] 1.015 Urine Protein NEGATIVE Urine Glucose (UA) NEGATIVE Urine Ketones NEGATIVE Urine Occult Blood NEGATIVE Urine Nitrite NEGATIVE Urine Bilirubin NEGATIVE Urine Urobilinogen 0.2 (NORMAL) Ur Leukocyte Esterase NEGATIVE Ur Microscopic Review NOT INDICATED Urine Culture Comments NOT INDICATED 05/07/17 05/07/17 05/07/17 12:23 12:23 12:23 WBC RBC Hgb Hct MCV MCH MCHC RDW Plt Count MPV Neut # Lymph # [place] # Eos # Baso # Absolute Nucleated RBC Nucleated RBC % PT INR Sodium 123 L Potassium 4.2 Chloride 91 L Carbon Dioxide 22 Anion Gap 10.0 BUN 22 H Creatinine 0.8 Estimated GFR (MDRD) 97 Glucose 123 H Lactic Acid 1.4 Calcium 8.4 L Total Bilirubin 2.5 H AST 52 H ALT 25 Alkaline Phosphatase 26 L Ammonia 86.5 H* Total Protein 5.9 L Albumin 2.6 L Globulin 3.3 Albumin/Globulin Ratio 0.8 L Lipase 41 Urine Color Urine Clarity Urine pH Ur Specific [place] Urine Protein Urine Glucose (UA) Urine Ketones Urine Occult Blood Urine Nitrite Urine Bilirubin Urine Urobilinogen Ur Leukocyte Esterase Ur Microscopic Review Urine Culture Comments PD MEDICAL DECISION MAKING - ED course Complexity details: reviewed old records, reviewed results, re-evaluated patient , considered differential, d/w patient, d/w family, d/w pci security consultant ED course: The patient is a 67-year-old male who presents with confusion, most consistent with hepatic encephalopathy. His ammonia level is elevated at 86. The likely cause of his elevated ammonia is noncompliance with his lactulose therapy. His presentation does not suggest peritonitis or sepsis. Lactate level is normal at 1.4. His sodium is low at 123, which is lower than previous levels. His total bilirubin is 2.5, which is similar to previous lab values. Diuretic therapy has recently been increased to Lasix 40 mg twice daily and spironolactone 100 mg in the morning and 50 mg in the evening. Treatment in the emergency department included administration of lactulose 30 g orally. I discussed his condition with Dr. Camacho who will admit him on observation status. Departure - Departure Disposition: ED Place in Observation Clinical Impression: Hepatic encephalopathy, Increased ammonia level, Hyponatremia, Pancytopenia Hepatic cirrhosis Qualifiers: Hepatic cirrhosis type: alcoholic cirrhosis Ascites presence: with ascites Qualified Code(s): K70.31 - Alcoholic cirrhosis of liver with ascites Discharge Date/Time: 05/07/17 15:24
[2017-05-07 12:41] LABS: INR 1.7 (0.8-1.2)
[2017-05-07 12:44] LABS: ALBUMIN/GLOBULIN RATIO 0.8 (1.0-2.2); BILIRUBIN,TOTAL 2.5 mg/dL (0.2-1.0); CALCIUM 8.4 mg/dL (8.5-10.3); CREATININE 0.8 mg/dL (0.6-1.2); POTASSIUM 4.2 mmol/L (3.5-5.0); TOTAL PROTEIN 5.9 g/dL (6.7-8.2)
[2017-05-07] MEDS ORDERED: LACTULOSE 10 GM /15 ML UDC PO STA (13:12)
[2017-05-07] MEDS ORDERED: LACTULOSE 10 GM /15 ML UDC ONE (13:40)
[2017-05-07] MEDS ORDERED: SODIUM CHLORIDE FLUSH 0.9% 10 ML SYRINGE IVP PRN (14:42)
[2017-05-07] MEDS ORDERED: ONDANSETRON 4 MG/2 ML VIAL IVP PRN (14:54)
[2017-05-07] MEDS ORDERED: ACETAMINOPHEN 325 MG TABLET PO PRN (14:54)
--- NOTE | 2017-05-07 15:11 | HISTORY & PHYSICAL EXAMINATION ---
Chief Complaint - Chief Complaint Chief Complaint: confusion History of Present Illness - History of Present Illness HPI Comment/Other: This is a 67-year-old male with a past medical history significant for alcoholic cirrhosis, pancytopenia, hepatic encephalopathy, status post of esophageal variceal banding, medical non-compliant, congestive heart failure, HTN, chronic vision loss and chronic hearing loss, who present emergence department for evaluation of altered mental status. Pt is living in a [place] Patient is a poor historian and some confusion due to his medical status. patient's report patient has been increasing confusion over the last weeks. patient did not take any Lactulose and Xifaxin as the schedule. Pt report he has some bilateral leg pain. Pt is afebrile, Vital signs are stable now. Na is 123 today, acute on chronic hyponatremia. Pancytopenia, HGB is 8.2 as baseline of chronic anemia. Ammonia level is 86.5 today. Pt denies fever, chill, chest pain, shortness of breath, headache, dysuria, hematuria, rectal bleeding, black stool. History - Past Medical History Cardiovascular: reports: Congestive heart failure, Hypertension Respiratory: reports: None Neuro: reports: Other (Hepatic Encephalopathy) Endocrine/Autoimmune: reports: Other GI: reports: Esophageal varices, Cirrhosis : reports: None, Other HEENT: reports: Chronic vision loss, Chronic hearing loss Psych: reports: None, Depression Musculoskeletal: reports: None, Chronic back pain Derm: reports: Other MRSA Hx?: Yes - Past Surgical History General: reports: Colonoscopy HEENT: reports: Cataracts - Family & Social History Family History: Mother: Alive and Well, Cancer, Father: Alive and Well, Alcoholism Family History Comment/Other: Pt is living [place]. Pt is with , no child. Pt denies recently alcohol intake, cigarette smoking, illicit drug abuse. Living arrangement: Homeless Living Situation: With spouse/s.o. Social History Notes: pt denies recent alcohol drinking, denies smok and ilicit drug abuse - Substance History Use: Uses substance without health or social issues: NONE Abuse: Recurrent use of substance despite neg consequences: Alcohol Dependence: Experiences withdrawal or developed tolerances: NONE Tobacco Details: Cigarettes - POLST Patient has POLST: No POLST Status: Full Code (pt report he want to be full code.) Meds/Allgy - Home Medications Home Medications: Ambulatory Orders Medication Instructions Recorded Confirmed Furosemide [Lasix] 40 mg PO BID 02/01/17 05/07/17 Spironolactone 100 mg PO DAILY 02/09/17 05/07/17 Thiamine HCl [Vitamin B-1] 50 mg PO DAILY 02/09/17 05/07/17 Acetaminophen/Cod 300/30 [Tylenol 1 tab PO BID PRN 05/07/17 05/07/17 #3] Bumetanide 2 mg PO BID 05/07/17 05/07/17 Ferrous Sulfate 325 mg PO BID 05/07/17 05/07/17 Fluticasone [Flonase] 2 sprays ANA BID 05/07/17 05/07/17 Folic Acid 1 mg PO DAILY 05/07/17 05/07/17 Saccharomyces Boulardii [Florastor] 250 mg PO BID 05/07/17 05/07/17 Spironolactone 50 mg PO QPM 05/07/17 05/07/17 rifAXIMin [Xifaxan] 550 mg PO BID 05/07/17 05/07/17 - Allergies Allergies/Adverse Reactions: Allergies Allergy/AdvReac Type Severity Reaction Status Date / Time levetiracetam [From Keppra] Allergy Unknown Verified 05/07/17 11:38 palifermin [From Kepivance] Allergy Unknown Verified 05/07/17 11:38 Review of Systems - Constitutional Constitutional: denies: Fever, Chills, Malaise, Poor appetite, Diaphoresis, Night sweats - Eyes Eyes: denies: Pain, Irritation, Amaurosis, Blurred vision, Spots in vision, Field loss, Vision loss, Dipolpia - Ears, Nose & Throat Ears, Nose & Throat: reports: Hearing loss. denies: Ear pain, Tinnitus, Vertigo , Nasal pain, Nasal discharge, Nosebleeds, Dentures, Mouth lesions, Bleeding gums - Cardiovascular Cariovascular: reports: Edema. denies: Irregular heart rate, Palpitations, Chest pain, Lightheadedness, Syncope, Exertional dyspnea, Decr. exercise tolerance - Respiratory Respiratory: denies: Wheezing, Snoring, Hemoptysis, Orthopnea, SOB at rest, SOB with exertion, Apnea - Gastrointestinal Gastrointestinal: reports: Change in bowel habits. denies: Abdominal pain, Abdominal distention, Constipation, Diarrhea, Rectal bleeding, Black stools, Bloody stools, Nausea, Vomiting, Denzel blood emesis, Coffee grounds emesis - Genitourinary Genitourinary: denies: Dysuria, Frequency, Urgency, Hematuria, Incontinence, Flank pain - Musculoskeletal Musculoskeletal: denies: Muscle pain, Back pain, Muscle aches, Stiffness, Limited range of motion, Joint pain - Integumentary Integumentary: denies: Rash, Pruritis, Lesions - Neurological Neurological: reports: General weakness. denies: Focal weakness, Headache, Dizziness, Numbness, Pre-existing deficit, Abnormal gait, Seizures, Incoordination, Slurred speech - Psychiatric Psychiatric: denies: Depression, Anxiety, Suicidal, Delusions, Hallucinations, Homicidal - Endocrine Endocrine: denies: Polyuria, Polydypsia, Polyphagia - Hematologic/Lymphatic Hematologic/Lymphatic: reports: Anemia. denies: Bruising, Petechiae, Blood clots, Lymphadenopathy, Bleeding tendencies Exam - Vital Signs Reviewed Vital Signs: Yes - Physical Exam General Appearance: positive: No acute distress, Alert. negative: Lethargic Eyes Bilateral: positive: Normal inspection, PERRL, No lid inflammation, Conjunctivae nml ENT: positive: ENT inspection nml, Pharynx nml, No signs of dehydration. negative: Purulent nasal drainage, Pharyngeal erythema, Oral lesions, Dry mucous membranes Neck: positive: Nml inspection, Thyroid nml, No JVD, Trachea midline. negative : Thyromegaly, Lymphadenopathy (R), Lymphadenopathy (L), Stiff neck, Carotid bruit, Swelling/bruising, Tracheal deviation Respiratory: positive: Chest non-tender, No respiratory distress, Breath sounds nml. negative: Wheezes, Rales, Rhonchi Cardiovascular: positive: Regular rate & rhythm, No murmur, No gallop. negative : Irregularly irregular, Extrasystoles, Tachycardia, Bradycardia, Systolic murmur, Diastolic murmur Peripheral Pulses: positive: 2+ Abdomen: positive: Non-tender, No organomegaly, Abnml bowel sounds (reduced bowel sounds). negative: Tenderness, Guarding, Rebound Back: positive: Nml inspection. negative: CVA tenderness (R), CVA tenderness (L ) Skin: positive: Color nml, No rash, Warm, Dry, Cyanosis. negative: Diaphoresis , Pallor Extremities: positive: Non-tender, Full ROM, Nml appearance, Pedal edema. negative: Calf tenderness, Joint swelling, Nate's sign/cords Neurologic/Psychiatric: positive: Sensation nml, Mood/affect nml. negative: Sensory loss, Facial droop, Slurred/abnml speech, Depressed mood/affect Conclusion/Plan - Problem List (1) Serum ammonia increased Conclusion/Plan: pt has alcoholic hepatic encephalopathy, hx of medical non-compliant. Pt's report he did not compliance of his medication. resume home Rifaximin add lactulose daily check Ammonia daily lab and vital, tele monitor (2) Medical non-compliance Conclusion/Plan: This is reason pt repeat to come to ER for treatment of AMS. consult to pt and his for compliance of medical regime. (3) Anemia Conclusion/Plan: chronic anemia, it appear from hepatic cirrhosis. HGB 8.2, MCV 62. Pt denies GI bleeding. Ferrous sulfate 324 mg Bid lab test CBC, vital monitor (4) Hyponatremia Conclusion/Plan: acute on chronic hyponatremia. Today Na is 123 once NaCL 1gram continue Lasix 40 mg bid as home meds daily check lab test, vital monitor (5) Bilateral lower extremity edema Conclusion/Plan: pt has hx of CHF. pt complains pain on bilateral leg, legs are erythema and warm , US R/O DVT continue lasix rise of bilateral legs kflex for possible cellulitis. pt is pancytopenia. Lower WBC. (6) History of CHF (congestive heart failure) Conclusion/Plan: pt with hx of CHF continue Lasix daily Lab test, vital, tele monitor (7) DVT prophylaxis Conclusion/Plan: SCD. (8) Full code status Conclusion/Plan: pt request full code status - Lab Results Fish Bones: 05/07/17 12:23 05/07/17 12:23 Issues/Core Measures - Anticipated LOS Anticipated Stay Length: Less than 2 midnights (less than 2 midnight expected for lower level of ammonia) - [facility] Requirement for [facility] I expect patient to be DC'd or transferred within 96 hours.: Yes
[2017-05-07] MEDS ORDERED: SODIUM CHLORIDE 1 GM TABLET PO SCH (16:00)
[2017-05-07] MEDS: FERROUS SULFATE 325 MG TABLET PO SCH ×2 (16:06→16:20)
[2017-05-07] MEDS: cephALEXin 250 MG CAPSULE PO SCH ×3 (17:05→23:55)
[2017-05-07] MEDS ORDERED: SPIRONOLACTONE 25 MG TABLET PO SCH (21:00)
[2017-05-07] MEDS: LACTULOSE 10 GM /15 ML UDC PO SCH (21:10)
[2017-05-07] MEDS: SPIRONOLACTONE 25 MG TABLET PO SCH (21:10)
[2017-05-07] MEDS: FLUTICASONE NASAL SPRAY NAS SCH (21:10)
[2017-05-07] MEDS: FUROSEMIDE 20 MG TABLET PO SCH (21:10)
[2017-05-07] MEDS: SACCHAROMYCES BOULARDII 250 MG CAPSULE PO SCH (21:10)
[2017-05-07] MEDS: SODIUM CHLORIDE FLUSH 0.9% 10 ML SYRINGE IVP SCH (21:11)
--- NOTE | 2017-05-07 22:46 | Ultrasound Preliminary Report ---
Exam: US DUPLEX EXT VEINS BILATERAL IMPRESSION: 1. Bilateral distal superficial femoral, bilateral posterior tibial and bilateral peroneal veins are not well seen. 2. Given these limitations, no superficial or deep venous thrombosis is noted. [facility] SITE ID: [id number]
--- NOTE | 2017-05-07 22:57 | Ultrasound Report ---
EXAM: BILATERAL LOWER EXTREMITY VENOUS ULTRASOUND EXAM DATE: 05/07/2017 10:18 PM. CLINICAL HISTORY: Bilateral leg swelling. COMPARISON: None. TECHNIQUE: Real-time sonographic vascular imaging was performed by the transformer molder through the lower extremities utilizing both color-flow and Doppler spectral analysis. Multiple customer success representative static i mages were saved for review. FINDINGS: Right: Common Femoral Vein (CFV): Normal. CFV-GSV Junction: Normal. Profunda Femoral Vein (PFV): Normal. Femoral Vein (FV) Prox: Normal. Femoral Vein (FV) Mid: Normal. Femoral Vein (FV) Dist: Not well seen. Popliteal Vein: Normal. Posterior Tibial Veins: Not well seen. Peroneal Veins: Not well seen. Left: Common Femoral Vein (CFV): Normal. CFV-GSV Junction: Normal. Profunda Femoral Vein (PFV): Normal. Femoral Vein (FV) Prox: Normal. Femoral Vein (FV) Mid: Normal. Femoral Vein (FV) Dist: Not well seen. Popliteal Vein: Normal. Posterior Tibial Veins: Not well seen. Peroneal Veins: Not well seen. Other: No collections are identified. Bilateral lower extremity edema. IMPRESSION: 1. Bilateral distal superficial femoral, bilateral posterior tibial and bilateral peroneal veins are not well seen. 2. Given these limitations, no superficial or deep venous thrombosis is noted. [facility] Referring Provider Line: [phone] SITE ID: [id number]
[2017-05-08 05:11] LABS: INR 1.7 (0.8-1.2); PT - PROTHROMBIN TIME 19.2 secs (9.9-12.6)
[2017-05-08 05:12] LABS: BASOPHILS % (AUTO) 0.7 %; HCT - HEMATOCRIT 23.7 % (42.0-52.0); HGB - HEMOGLOBIN 7.6 g/dL (14.0-18.0); LYMPHOCYTES # (AUTO) 0.6 10^3/uL (1.5-3.5); LYMPHOCYTES % (AUTO) 13.3 %; MEAN CORPUSCULAR HEMOGLOBIN 21.5 pg (27.0-31.0); MEAN CORPUSCULAR HGB CONC 31.9 g/dL (32.0-36.0); MEAN CORPUSCULAR VOLUME 67.5 fL (80.0-94.0); MONOCYTES # (AUTO) 0.5 10^3/uL (0.0-1.0); MONOCYTES % (AUTO) 10.2 %; NEUTROPHILS # (AUTO) 3.3 10^3/uL (1.5-6.6); NEUTROPHILS % (AUTO) 74.8 %; RED BLOOD COUNT 3.52 10^6/uL (4.70-6.10); RED CELL DISTRIBUTION WIDTH 23.7 % (12.0-15.0); UNCORRECTED WHITE BLOOD COUNT 4.5 x10^3/uL; WHITE BLOOD COUNT 4.5 x10^3/uL (4.8-10.8)
[2017-05-08 05:18] LABS: ALBUMIN/GLOBULIN RATIO 0.7 (1.0-2.2); BILIRUBIN,TOTAL 1.6 mg/dL (0.2-1.0); CALCIUM 8.2 mg/dL (8.5-10.3); CREATININE 0.7 mg/dL (0.6-1.2); MAGNESIUM 1.5 mg/dL (1.7-2.8); TOTAL PROTEIN 5.5 g/dL (6.7-8.2)
[2017-05-08 05:42] LABS: PLATELET ESTIMATE, MANUAL DECREASED (<130,000) (NORMAL); PLATELET MORPHOLOGY NORMAL APPEARANCE (NORMAL)
[2017-05-08] MEDS: cephALEXin 250 MG CAPSULE PO SCH ×3 (06:17→18:43)
[2017-05-08] MEDS: LACTULOSE 10 GM /15 ML UDC PO SCH ×3 (06:17→20:22)
[2017-05-08] MEDS: SODIUM CHLORIDE FLUSH 0.9% 10 ML SYRINGE IVP SCH ×3 (06:18→20:23)
--- NOTE | 2017-05-08 08:17 | XRAY Preliminary Report ---
Exam: XR CHEST 1 VIEW IMPRESSION: No radiographically apparent acute abnormality in the chest. [facility] SITE ID: [id number]
--- NOTE | 2017-05-08 08:19 | XRAY Report ---
EXAM: CHEST RADIOGRAPHY EXAM DATE: 05/08/2017 07:45 AM. CLINICAL HISTORY: Cough, shortness of breath. COMPARISON: 02/10/2017. TECHNIQUE: 1 view. FINDINGS: Lungs/Pleura: No focal consolidation. No pneumothorax or large pleural effusion. Mediastinum: The cardiac silhouette is normal in size. Other: None. IMPRESSION: No radiographically apparent acute abnormality in the chest. [facility] Referring Provider Line: [phone] SITE ID: [id number]
[2017-05-08] MEDS ORDERED: SPIRONOLACTONE 25 MG TABLET PO SCH (09:00)
[2017-05-08] MEDS: THIAMINE 100 MG TABLET PO SCH (09:18)
[2017-05-08] MEDS: MAGNESIUM OXIDE 400 MG TABLET PO SCH (09:18)
[2017-05-08] MEDS: FERROUS SULFATE 325 MG TABLET PO SCH ×2 (09:18→18:43)
[2017-05-08] MEDS: FOLIC ACID 1 MG TABLET PO SCH (09:18)
[2017-05-08] MEDS: SACCHAROMYCES BOULARDII 250 MG CAPSULE PO SCH ×2 (09:18→20:22)
[2017-05-08] MEDS: FUROSEMIDE 20 MG TABLET PO SCH ×2 (09:19→20:22)
[2017-05-08] MEDS: FAMOTIDINE 20 MG TABLET PO SCH (09:19)
[2017-05-08] MEDS: FLUTICASONE NASAL SPRAY NAS SCH ×2 (09:24→22:02)
[2017-05-08] MEDS: POLYETHYLENE GLYCOL 3350 17 GM PACKET PO SCH ×2 (10:29→12:28)
[2017-05-08] MEDS: rifAXIMin 550 MG TABLET PO SCH ×2 (13:39→20:23)
--- NOTE | 2017-05-08 14:18 | PROVIDER PROGRESS NOTE ---
Subjective - Prog Note Date Prog Note Date: 05/08/17 - Subjective Pt reports feeling: Improved Subjective: pt state he feel better, but still some confused. Rifaximin was not given to pt. Pt's Ammonia level was not changed significantly. Current Medications - Current Medications Current Medications: Active Medications Acetaminophen (Tylenol) 650 mg PO Q4HR PRN PRN Reason: Pain 1 to 4 Cephalexin (Keflex) 250 mg PO Q6HR [facility] Last Admin: 05/08/17 12:28 Dose: 250 mg Famotidine (Pepcid) 20 mg PO DAILY [facility] Last Admin: 05/08/17 09:19 Dose: 20 mg Ferrous Sulfate (Feosol) 325 mg PO BIDWM [facility] Last Admin: 05/08/17 09:18 Dose: 325 mg Fluticasone Propionate (Flonase) 2 sprays ANA BID [facility] Last Admin: 05/08/17 09:24 Dose: 2 sprays Folic Acid () 1 mg PO DAILY [facility] Last Admin: 05/08/17 09:18 Dose: 1 mg Furosemide (Lasix) 40 mg PO BID [facility] Last Admin: 05/08/17 09:19 Dose: 40 mg Lactulose (Enulose) 30 gm PO TID [facility] Last Admin: 05/08/17 13:39 Dose: 30 gm Magnesium Oxide (Mag Ox) 400 mg PO DAILYWM [facility] Last Admin: 05/08/17 09:18 Dose: 400 mg Ondansetron HCl (Zofran Inj) 4 mg IVP Q6HR PRN PRN Reason: Nausea / Vomiting Polyethylene Glycol (Miralax) 17 gm PO DAILY [facility] Last Admin: 05/08/17 12:28 Dose: 17 gm Rifaximin (Xifaxan) 550 mg PO BID [facility] Last Admin: 05/08/17 13:39 Dose: 550 mg Saccharomyces Boulardii (Florastor) 250 mg PO BID [facility] Last Admin: 05/08/17 09:18 Dose: 250 mg Sodium Chloride (Normal Saline Flush 0.9%) 10 ml IVP PRN PRN PRN Reason: NEEDED PER PROVIDER ORDERS Sodium Chloride (Normal Saline Flush 0.9%) 10 ml IVP Q8HR [facility] Last Admin: 05/08/17 13:40 Dose: 10 ml Spironolactone (Aldactone) 50 mg PO QPM [facility] Last Admin: 05/07/17 21:10 Dose: 50 mg Thiamine HCl (Vitamin B-1) 50 mg PO DAILY [facility] Last Admin: 05/08/17 09:18 Dose: 50 mg Furosemide [Lasix] 40 mg PO BID 02/01/17 Spironolactone 100 mg PO DAILY 02/09/17 Thiamine HCl [Vitamin B-1] 50 mg PO DAILY 02/09/17 Acetaminophen/Cod 300/30 [Tylenol #3] 1 tab PO BID PRN 05/07/17 Bumetanide 2 mg PO BID 05/07/17 Ferrous Sulfate 325 mg PO BID 05/07/17 Fluticasone [Flonase] 2 sprays ANA BID 05/07/17 Folic Acid 1 mg PO DAILY 05/07/17 Saccharomyces Boulardii [Florastor] 250 mg PO BID 05/07/17 Spironolactone 50 mg PO QPM 05/07/17 rifAXIMin [Xifaxan] 550 mg PO BID 05/07/17 Objective - Vital Signs/Intake & Output Reviewed Vital Signs: Yes Vital Signs: Vital Signs x48h Temp Pulse Resp BP Pulse Ox 05/08/17 13:10 37.1 C 86 20 124/58 L 98 05/08/17 09:20 37.3 C 90 18 114/46 L 97 Intake & Output: Intake & Output 05/05/17 05/06/17 05/07/17 05/08/17 23:59 23:59 23:59 23:59 Intake Total 530 1320 Balance 530 1320 - Objective General Appearance: positive: No acute distress, Alert. negative: Lethargic Eyes Bilateral: positive: Normal inspection, PERRL, No lid inflammation, Conjunctivae nml ENT: positive: ENT inspection nml, Pharynx nml, No signs of dehydration. negative: Purulent nasal drainage, Pharyngeal erythema, Oral lesions, Dry mucous membranes Neck: positive: Nml inspection, Thyroid nml, No JVD, Trachea midline. negative : Thyromegaly, Lymphadenopathy (R), Lymphadenopathy (L), Stiff neck, Carotid bruit, Swelling/bruising, Tracheal deviation Respiratory: positive: Chest non-tender, No respiratory distress, Breath sounds nml. negative: Wheezes, Rales, Rhonchi Cardiovascular: positive: Regular rate & rhythm, No murmur, No gallop. negative : Irregularly irregular, Extrasystoles, Tachycardia, Bradycardia, Systolic murmur, Diastolic murmur Peripheral Pulses: 2+ Radial (R), 2+ Radial (L), 2+ Dorsalis pedis (R), 2+ Dorsalis pedis (L) Abdomen: positive: Non-tender, No organomegaly, Nml bowel sounds. negative: Tenderness, Guarding, Rebound Back: positive: Nml inspection. negative: CVA tenderness (R), CVA tenderness (L ) Skin: positive: Color nml, Warm, Dry. negative: Cyanosis, Diaphoresis, Pallor Extremities: positive: Non-tender, Pedal edema. negative: Calf tenderness, Joint swelling, Nate's sign/cords Neurologic/Psychiatric: positive: Mood/affect nml, Disoriented to place, Disoriented to time. negative: Disoriented to person, Sensory loss, Facial droop, Slurred/abnml speech - Lab Results Fish Bones: 05/08/17 04:46 05/08/17 04:46 Other Labs: Lab Results x24hrs 05/08/17 05/08/17 05/08/17 Range/Units 04:46 04:46 04:46 WBC 4.5 L (4.8-10.8) x10^3/uL RBC 3.52 L (4.70-6.10) 10^6/uL Hgb 7.6 L (14.0-18.0) g/dL Hct 23.7 L (42.0-52.0) % MCV 67.5 L (80.0-94.0) fL MCH 21.5 L (27.0-31.0) pg MCHC 31.9 L (32.0-36.0) g/dL RDW 23.7 H (12.0-15.0) % Plt Count 80 L (130-450) 10^3/uL MPV 8.0 (7.4-11.4) fL Neut # 3.3 (1.5-6.6) 10^3/uL Lymph # 0.6 L (1.5-3.5) 10^3/uL Crosby # 0.5 (0.0-1.0) 10^3/uL Eos # 0.0 (0.0-0.7) 10^3/uL Baso # 0.0 (0.0-0.1) 10^3/uL Absolute Nucleated RBC 0.00 x10^3/uL Nucleated RBC % 0.0 /100WBC Manual Slide Review Indicated Platelet Estimate DECREASED (<130,000) (NORMAL) Platelet Morphology NORMAL APPEARANCE (NORMAL) RBC Morph Micro Appear 1+ HYPOCHROMASIA (NORMAL) PT 19.2 H (9.9-12.6) secs INR 1.7 H (0.8-1.2) Sodium 128 L (135-145) mmol/L Potassium 4.0 (3.5-5.0) mmol/L Chloride 97 L (101-111) mmol/L Carbon Dioxide 22 (21-32) mmol/L Anion Gap 9.0 (6-13) BUN 19 (6-20) mg/dL Creatinine 0.7 (0.6-1.2) mg/dL Estimated GFR (MDRD) 113 (>89) Glucose 119 H (70-100) mg/dL Lactic Acid (0.5-2.2) mmol/L Calcium 8.2 L (8.5-10.3) mg/dL Magnesium 1.5 L (1.7-2.8) mg/dL Total Bilirubin 1.6 H (0.2-1.0) mg/dL AST 44 H (10-42) IU/L ALT 22 (10-60) IU/L Alkaline Phosphatase 28 L (42-121) IU/L Ammonia (7-35) umol/L Total Protein 5.5 L (6.7-8.2) g/dL Albumin 2.3 L (3.2-5.5) g/dL Globulin 3.2 (2.1-4.2) g/dL Albumin/Globulin Ratio 0.7 L (1.0-2.2) 05/08/17 05/07/17 Range/Units 04:46 17:14 WBC (4.8-10.8) x10^3/uL RBC (4.70-6.10) 10^6/uL Hgb (14.0-18.0) g/dL Hct (42.0-52.0) % MCV (80.0-94.0) fL MCH (27.0-31.0) pg MCHC (32.0-36.0) g/dL RDW (12.0-15.0) % Plt Count (130-450) 10^3/uL MPV (7.4-11.4) fL Neut # (1.5-6.6) 10^3/uL Lymph # (1.5-3.5) 10^3/uL Crosby # (0.0-1.0) 10^3/uL Eos # (0.0-0.7) 10^3/uL Baso # (0.0-0.1) 10^3/uL Absolute Nucleated RBC x10^3/uL Nucleated RBC % /100WBC Manual Slide Review Platelet Estimate (NORMAL) Platelet Morphology (NORMAL) RBC Morph Micro Appear (NORMAL) PT (9.9-12.6) secs INR (0.8-1.2) Sodium (135-145) mmol/L Potassium (3.5-5.0) mmol/L Chloride (101-111) mmol/L Carbon Dioxide (21-32) mmol/L Anion Gap (6-13) BUN (6-20) mg/dL Creatinine (0.6-1.2) mg/dL Estimated GFR (MDRD) (>89) Glucose (70-100) mg/dL Lactic Acid 1.2 (0.5-2.2) mmol/L Calcium (8.5-10.3) mg/dL Magnesium (1.7-2.8) mg/dL Total Bilirubin (0.2-1.0) mg/dL AST (10-42) IU/L ALT (10-60) IU/L Alkaline Phosphatase (42-121) IU/L Ammonia 81.2 H* (7-35) umol/L Total Protein (6.7-8.2) g/dL Albumin (3.2-5.5) g/dL Globulin (2.1-4.2) g/dL Albumin/Globulin Ratio (1.0-2.2) Assessment/Plan - Problem List (1) Serum ammonia increased Impression: Rifaximin was ordered but not scheduled to pt. Ammonia level was 86 yesterday, today is 81. correct schedule, pt will get the meds today lab check ammonia level neuro check daily lab, vital monitor pt has alcoholic hepatic encephalopathy, hx of medical non-compliant. Pt's report he did not compliance of his medication. resume home Rifaximin add lactulose daily check Ammonia daily lab and vital, tele monitor (2) Medical non-compliance Conclusion/Plan: repeat to consult with pt for medical compliance This is one of reason pt repeat to come to ER for treatment of AMS. consult to pt and his for compliance of medical regime. (3) Anemia Conclusion/Plan: order cross match occult stool pending daily lab, vital monitor chronic anemia, it appear from hepatic cirrhosis. HGB 8.2, MCV 62. Pt denies GI bleeding. Ferrous sulfate 324 mg Bid lab test CBC, vital monitor (4) Hyponatremia Conclusion/Plan: today Na is 128 regular diet once Nach 1 gram acute on chronic hyponatremia. Today Na is 123 once NaCL 1gram continue Lasix 40 mg bid as home meds daily check lab test, vital monitor (5) Bilateral lower extremity edema Conclusion/Plan: No DVT continue Lasix, Kflex for cellulitis pt has hx of CHF. pt complains pain on bilateral leg, legs are erythema and warm , US R/O DVT continue lasix rise of bilateral legs kflex for possible cellulitis. pt is pancytopenia. Lower WBC. (6) History of CHF (congestive heart failure) continue Lasix daily lab monitor check BNP (7) Hepatic Encephalopathy chronic, support check ammonia, treat with Lactulose and Rixafimin
[2017-05-08] MEDS ORDERED: SODIUM CHLORIDE 1 GM TABLET PO SCH (17:00)
[2017-05-08] MEDS: SPIRONOLACTONE 25 MG TABLET PO SCH (20:23)
[2017-05-09] MEDS: cephALEXin 250 MG CAPSULE PO SCH ×2 (00:08→05:34)
[2017-05-09 05:05] LABS: BASOPHILS # (AUTO) 0.1 10^3/uL (0.0-0.1); BASOPHILS % (AUTO) 1.4 %; EOSINOPHILS # (AUTO) 0.1 10^3/uL (0.0-0.7); EOSINOPHILS % (AUTO) 1.8 %; HCT - HEMATOCRIT 24.5 % (42.0-52.0); HGB - HEMOGLOBIN 7.8 g/dL (14.0-18.0); LYMPHOCYTES # (AUTO) 0.6 10^3/uL (1.5-3.5); LYMPHOCYTES % (AUTO) 14.9 %; MEAN CORPUSCULAR HEMOGLOBIN 21.7 pg (27.0-31.0); MEAN CORPUSCULAR HGB CONC 31.9 g/dL (32.0-36.0); MEAN CORPUSCULAR VOLUME 68.1 fL (80.0-94.0); MONOCYTES # (AUTO) 0.5 10^3/uL (0.0-1.0); MONOCYTES % (AUTO) 12.5 %; NEUTROPHILS # (AUTO) 2.7 10^3/uL (1.5-6.6); NEUTROPHILS % (AUTO) 69.4 %; RED BLOOD COUNT 3.59 10^6/uL (4.70-6.10); RED CELL DISTRIBUTION WIDTH 24.9 % (12.0-15.0); UNCORRECTED WHITE BLOOD COUNT 3.9 x10^3/uL; WHITE BLOOD COUNT 3.9 x10^3/uL (4.8-10.8)
[2017-05-09 05:09] LABS: ALBUMIN/GLOBULIN RATIO 0.7 (1.0-2.2); CALCIUM 8.1 mg/dL (8.5-10.3); CREATININE 0.7 mg/dL (0.6-1.2); MAGNESIUM 1.5 mg/dL (1.7-2.8); POTASSIUM 3.7 mmol/L (3.5-5.0); TOTAL PROTEIN 5.6 g/dL (6.7-8.2)
[2017-05-09 05:20] LABS: INR 1.7 (0.8-1.2); PT - PROTHROMBIN TIME 18.7 secs (9.9-12.6)
[2017-05-09] MEDS: SODIUM CHLORIDE FLUSH 0.9% 10 ML SYRINGE IVP SCH (05:34)
[2017-05-09] MEDS: LACTULOSE 10 GM /15 ML UDC PO SCH (05:40)
[2017-05-09 05:46] LABS: PLATELET ESTIMATE, MANUAL DECREASED (<130,000) (NORMAL); PLATELET MORPHOLOGY NORMAL APPEARANCE (NORMAL)
[2017-05-09] MEDS ORDERED: MAGNESIUM SULFATE 2 GRAM 2 GM/50 ML BAG IV ONE (07:38)
[2017-05-09] MEDS: FOLIC ACID 1 MG TABLET PO SCH (08:36)
[2017-05-09] MEDS: rifAXIMin 550 MG TABLET PO SCH (08:36)
[2017-05-09] MEDS: FAMOTIDINE 20 MG TABLET PO SCH (08:36)
[2017-05-09] MEDS: SACCHAROMYCES BOULARDII 250 MG CAPSULE PO SCH (08:36)
[2017-05-09] MEDS: MAGNESIUM OXIDE 400 MG TABLET PO SCH (08:37)
[2017-05-09] MEDS: THIAMINE 100 MG TABLET PO SCH (08:37)
[2017-05-09] MEDS: FERROUS SULFATE 325 MG TABLET PO SCH (08:37)
[2017-05-09] MEDS: FUROSEMIDE 20 MG TABLET PO SCH (08:37)
[2017-05-09] MEDS: FLUTICASONE NASAL SPRAY NAS SCH (08:40)
--- NOTE | 2017-05-09 08:49 | Discharge Plan ---
Discharge Plan Disposition: 01 Home, Self Care Condition: Stable Prescriptions: cephALEXin [Keflex] 250 mg PO Q6HR #20 capsule Diet: Regular Activity Restrictions: Activity as Tolerated Shower Restrictions: No Weight Bearing: Full Weight Instruction Topics: Rifaximin tablets, Anemia, Cirrhosis Additional Instructions or Follow Up instructions: May see PCP in one week. Advise patient medical compliance. Should symptoms return or worsen, call 911 or present ER. No Smoking: If you smoke, Please STOP! Call for help. Follow-up with: Lisa Grayson PA-C [Primary Care Provider] -
[2017-05-09 09:03] VITALS: BP 107/58
--- NOTE | 2017-05-09 10:57 | DISCHARGE SUMMARY ---
Discharge Summary Discharge Date: 05/09/17 Discharging Provider: CLEANING Primary Care Provider: Lisa Hall Condition at Discharge: Stable Discharge Disposition: 01 Home, Self Care Discharge Facility Name: home - DIAGNOSES Admission Diagnoses: (1) Serum ammonia increased (2) Medical non-compliance (3) Anemia (4) Hyponatremia (5) Bilateral lower extremity edema (6) History of CHF (congestive heart failure) (7) Hepatic Encephalopathy (8) liver cirrhosis Discharge Diagnoses with Status of Each Condition: (1) Serum ammonia increased ammonia level continue decreased. The issue is pt keep medical compliance. consult with pt again. (2) Medical non-compliance This is ongoing problem for pt. Consult with pt and his for pt keeping medical compliance (3) Anemia Stable, HGB as pt's baseline. Pt refused to have blood transfusion. Continue Iron meds (4) Hyponatremia stable as pt's baseline (5) Bilateral lower extremity edema great improved, cellulitis is great improved, continue Keflex antibiotics course (6) History of CHF (congestive heart failure) stable, continue Lasix (7) Hepatic Encephalopathy stable, more oriented. continue home regime (8) liver cirrhosis chronic and stable. - HPI History of Present Illness: please refer from my HPI on 05/07/17 as the following: This is a 67-year-old male with a past medical history significant for alcoholic cirrhosis, pancytopenia, hepatic encephalopathy, status post of esophageal variceal banding, medical non-compliant, congestive heart failure, HTN, chronic vision loss and chronic hearing loss, who present emergence department for evaluation of altered mental status. Pt is living in a [place]. Patient is a poor historian and some confusion due to his medical status. patient's report patient has been increasing confusion over the last weeks. patient did not take any Lactulose and Xifaxin as the schedule. Pt report he has some bilateral leg pain. Pt is afebrile, Vital signs are stable now. Na is 123 today, acute on chronic hyponatremia. Pancytopenia, HGB is 8.2 as baseline of chronic anemia. Ammonia level is 86.5 today. Pt denies fever, chill, chest pain, shortness of breath, headache, dysuria, hematuria, rectal bleeding, black stool. - HOSPITAL COURSE Hospital Course: Pt was admitted for confusion. Pt als report bilateral leg pain. Pt did have half-way issue of non-medical compliance. Per pt's report, pt did not take medication as the schedule. Pt's ammonia level rise to 86.5. Pt's HGB 8.2 as this baseline. Pt was resumed his home regime at hospital. Pt's ammonia level continue decreased. Pt's HGB is 7.8 today. Pt discussed with pt twice about transfusion blood to him, but pt refused to have that. US of bilateral leg showed negative DVT. Cellulitis was treated with Keflex. The erythema and edema are significantly decreased. Pt denies any more pain. Pt was prescribed Keflex to finish the course. Pt and his was consulted by me for medical compliance. All questions are answered. - ALLERGIES Allergies/Adverse Reactions: Allergies Allergy/AdvReac Type Severity Reaction Status Date / Time levetiracetam [From Keppra] Allergy Unknown Verified 05/07/17 11:38 palifermin [From pivance] Allergy Unknown Verified 05/07/17 11:38 - MEDICATIONS Home Medications: Ambulatory Orders Medication Instructions Recorded Confirmed Furosemide [Lasix] 40 mg PO BID 02/01/17 05/07/17 Spironolactone 100 mg PO DAILY 02/09/17 05/07/17 Thiamine HCl [Vitamin B-1] 50 mg PO DAILY 02/09/17 05/07/17 Acetaminophen/Cod 300/30 [Tylenol 1 tab PO BID PRN 05/07/17 05/07/17 #3] Bumetanide 2 mg PO BID 05/07/17 05/07/17 Ferrous Sulfate 325 mg PO BID 05/07/17 05/07/17 Fluticasone [Flonase] 2 sprays ANA BID 05/07/17 05/07/17 Folic Acid 1 mg PO DAILY 05/07/17 05/07/17 Saccharomyces Boulardii [Florastor] 250 mg PO BID 05/07/17 05/07/17 Spironolactone 50 mg PO QPM 05/07/17 05/07/17 rifAXIMin [Xifaxan] 550 mg PO BID 05/07/17 05/07/17 Cephalexin [Keflex] 250 mg PO Q6H #20 capsule 05/09/17 cephALEXin [Keflex] 250 mg PO Q6HR #20 capsule 05/09/17 - PHYSICAL EXAM AT DISCHARGE General Appearance: positive: No acute distress, Alert. negative: Lethargic Eyes Bilateral: positive: Normal inspection, PERRL, No lid inflammation, Conjunctivae nml ENT: positive: ENT inspection nml, Pharynx nml, No signs of dehydration. negative: Purulent nasal drainage, Pharyngeal erythema, Oral lesions Neck: positive: Nml inspection, Thyroid nml, No JVD, Trachea midline. negative : Thyromegaly, Lymphadenopathy (R), Lymphadenopathy (L), Stiff neck, Carotid bruit, Swelling/bruising, Tracheal deviation Respiratory: positive: Chest non-tender, No respiratory distress, Breath sounds nml. negative: Wheezes, Rales, Rhonchi Cardiovascular: positive: Regular rate & rhythm, No murmur, No gallop. negative : Irregularly irregular, Extrasystoles, Tachycardia, Bradycardia, Systolic murmur, Diastolic murmur Peripheral Pulses: positive: 2+ Abdomen: positive: Non-tender, No organomegaly, Nml bowel sounds. negative: No distention, Tenderness, Guarding, Rebound Back: positive: Nml inspection. negative: CVA tenderness (R), CVA tenderness (L ) Skin: positive: Color nml, No rash, Warm, Dry. negative: Cyanosis, Diaphoresis , Pallor Extremities: positive: Non-tender, Full ROM, Nml appearance. negative: Calf tenderness, Joint swelling, Nate's sign/cords Neurologic/Psychiatric: positive: Sensation nml, Disoriented to place, Disoriented to time. negative: Disoriented to person, Sensory loss, Facial droop, Slurred/abnml speech - LABS Result Diagrams: 05/09/17 04:40 05/09/17 04:40 - FOLLOW UP Follow Up: May follow up PCP in one week. Pt is advised for medical compliance. Pt is prescribed Keflex to finish the antibiotics course. Should symptoms return or worsen, call 911 or present ER.
[2020-05-08] MEDS ORDERED: rifAXIMin 550 MG TABLET PO SCH (09:00)
== END 2017-05-09 10:56 | disposition home or self-care (01) ==
LOC: ED 11:27 → OBS 14:42
PROVIDERS: ADMIT Nurse Practitioner Gerontology; ATTEND Nurse Practitioner Gerontology
DX: K70.40 Alcoholic hepatic failure without coma (principal); T47.3X6A Underdosing of saline and osmotic laxatives, initial encounter; T36.6X6A Underdosing of rifampicins, initial encounter; L03.116 Cellulitis of left lower limb; L03.115 Cellulitis of right lower limb; E87.1 Hypo-osmolality and hyponatremia; D61.818 Other pancytopenia; K70.31 Alcoholic cirrhosis of liver with ascites; I11.0 Hypertensive heart disease with heart failure; I50.9 Heart failure, unspecified; Z91.128 Patient's intentional underdosing of medication regimen for other reason; Z59.0 Homelessness; F10.10 Alcohol abuse, uncomplicated; Z71.89 Other specified counseling
CPT/HCPCS: 36415; 71010; 80053; 81003; 82140; 83605; 83690; 83735; 85025; 85610; 86850; 86900; 86901; 86920; 87640; 93970; 96365; 99283; 99285; A9270; G0378; J8499; 81001; 87086

== ENCOUNTER 2017-05-28 14:35 | Outpatient (CLI) | payer MEDICARE, OTHER ==
[2017-05-28 19:17] LABS: ALBUMIN/GLOBULIN RATIO 0.8 (1.0-2.2); BILIRUBIN,TOTAL 1.8 mg/dL (0.2-1.0); CALCIUM 8.5 mg/dL (8.5-10.3); CREATININE 0.8 mg/dL (0.6-1.2); TOTAL PROTEIN 6.8 g/dL (6.7-8.2)
[2017-05-28 19:18] LABS: BASOPHILS % (AUTO) 0.6 %; EOSINOPHILS % (AUTO) 1.1 %; HGB - HEMOGLOBIN 8.5 g/dL (14.0-18.0); LYMPHOCYTES # (AUTO) 0.4 10^3/uL (1.5-3.5); MEAN CORPUSCULAR HEMOGLOBIN 21.3 pg (27.0-31.0); MEAN CORPUSCULAR HGB CONC 31.7 g/dL (32.0-36.0); MEAN PLATELET VOLUME 8.1 fL (7.4-11.4); MONOCYTES # (AUTO) 0.5 10^3/uL (0.0-1.0); MONOCYTES % (AUTO) 11.8 %; NEUTROPHILS # (AUTO) 3.3 10^3/uL (1.5-6.6); NEUTROPHILS % (AUTO) 76.5 %; PLT - PLATELET COUNT 96 10^3/uL (130-450); RED BLOOD COUNT 3.98 10^6/uL (4.70-6.10); RED CELL DISTRIBUTION WIDTH 23.9 % (12.0-15.0); WHITE BLOOD COUNT 4.3 x10^3/uL (4.8-10.8)
[2017-05-28 19:20] LABS: MEAN CORPUSCULAR VOLUME 67.2 fL (80.0-94.0)
[2017-05-28 20:00] LABS: INR 1.5 (0.8-1.2); PT - PROTHROMBIN TIME 17.2 secs (9.9-12.6)
[2017-05-28 20:09] LABS: PLATELET ESTIMATE, MANUAL DECREASED (<130,000) (NORMAL); PLATELET MORPHOLOGY NORMAL APPEARANCE (NORMAL)
== END 2017-05-28 14:36 ==
LOC: LAB.WCP 14:35
PROVIDERS: ATTEND Physician Assistant Medical
DX: K70.30 Alcoholic cirrhosis of liver without ascites (principal)
CPT/HCPCS: 36415; 80053; 85025; 85610

== ENCOUNTER 2017-06-25 08:00 | Outpatient (CLI) | payer MEDICARE, OTHER ==
[2017-06-25 19:12] LABS: BASOPHILS % (AUTO) 0.6 %; EOSINOPHILS % (AUTO) 0.8 %; HGB - HEMOGLOBIN 8.2 g/dL (14.0-18.0); LYMPHOCYTES # (AUTO) 0.5 10^3/uL (1.5-3.5); LYMPHOCYTES % (AUTO) 10.3 %; MEAN CORPUSCULAR HEMOGLOBIN 20.8 pg (27.0-31.0); MEAN CORPUSCULAR HGB CONC 31.7 g/dL (32.0-36.0); MEAN CORPUSCULAR VOLUME 65.6 fL (80.0-94.0); MEAN PLATELET VOLUME 8.4 fL (7.4-11.4); MONOCYTES # (AUTO) 0.6 10^3/uL (0.0-1.0); MONOCYTES % (AUTO) 12.6 %; NEUTROPHILS # (AUTO) 3.4 10^3/uL (1.5-6.6); NEUTROPHILS % (AUTO) 75.7 %; PLT - PLATELET COUNT 78 10^3/uL (130-450); RED BLOOD COUNT 3.94 10^6/uL (4.70-6.10); RED CELL DISTRIBUTION WIDTH 22.4 % (12.0-15.0); WHITE BLOOD COUNT 4.5 x10^3/uL (4.8-10.8)
[2017-06-25 19:23] LABS: INR 1.5 (0.8-1.2); PT - PROTHROMBIN TIME 16.6 secs (9.9-12.6)
[2017-06-25 19:26] LABS: ALBUMIN 2.8 g/dL (3.2-5.5); ALBUMIN/GLOBULIN RATIO 0.7 (1.0-2.2); BILIRUBIN,TOTAL 1.5 mg/dL (0.2-1.0); CALCIUM 8.4 mg/dL (8.5-10.3); CREATININE 0.8 mg/dL (0.6-1.2); TOTAL PROTEIN 6.7 g/dL (6.7-8.2)
[2017-06-25 19:51] LABS: PLATELET ESTIMATE, MANUAL DECREASED (<130,000) (NORMAL); PLATELET MORPHOLOGY NORMAL APPEARANCE (NORMAL)
== END 2017-06-25 08:01 ==
LOC: LAB.WCP 08:00
PROVIDERS: ATTEND Physician Assistant Medical
DX: K72.90 Hepatic failure, unspecified without coma (principal); K92.2 Gastrointestinal hemorrhage, unspecified; K70.30 Alcoholic cirrhosis of liver without ascites
CPT/HCPCS: 36415; 80053; 85025; 85610

== ENCOUNTER 2018-05-11 14:07 | Emergency (ER) | payer MEDICARE, OTHER ==
[2018-05-11 15:09] LABS: MEAN CORPUSCULAR HGB CONC 29.4 g/dL (32.0-36.0); MEAN CORPUSCULAR VOLUME 54.4 fL (80.0-94.0); MEAN PLATELET VOLUME 8.1 fL (7.4-11.4); RED BLOOD COUNT 3.86 10^6/uL (4.70-6.10)
[2018-05-11 15:12] LABS: HGB - HEMOGLOBIN 6.2 g/dL (14.0-18.0)
--- NOTE | 2018-05-11 15:16 | ED Physician Documentation ---
PD HPI GI BLEED - Stated complaint Stated Complaint: WEAKNESS - Chief complaint Chief Complaint: Abd Pain - History obtained from History obtained from: Patient, Family - History of Present Illness Timing - onset: How many hours ago (2) Timing - duration: Hours (2) Timing - details: Abrupt onset Pain level max: 0 Pain level now: 0 Associated symptoms: Maroon stool, Dizzy. No: Vomiting, Diarrhea, Constipation, Abdominal pain, Chest pain, Near syncope / syncope Contributing factors: Alcohol use. No: Sick contact, Bad food, Travel, Recent antibiotics, Aspirin use, NSAID use, Stress, Anticoagulated, Diabetes Improved by: Other (nothing) Worsened by: Other (nothing) Similar symptoms before: Work up / diagnostics, Treatment Recently seen: Not recently seen - Additional information Additional information: 68-year-old male With history of end-stage alcoholic disease and hepatic encephalopathy and esophageal varices GI bleeding last year here with complaint of bloody stool a couple of hours ago. He also stated he was feeling lightheaded and dizzy the past 2 days. Patient claimed that he drinks 8 ounces of vodka daily. Per she noticed that the patient is a little bit more confused than usual today. Review of Systems Ten Systems: 10 systems reviewed and negative Constitutional: reports: Reviewed and negative. denies: Fever, Chills Cardiac: denies: Chest pain / pressure Respiratory: denies: Dyspnea GI: reports: Bloody / black stool. denies: Abdominal Pain, Nausea, Vomiting, Constipation, Diarrhea, Hematemesis : denies: Hematuria Neurologic: reports: Generalized weakness, Confused. denies: Focal weakness, Near syncope, Altered mental status PD PAST MEDICAL HISTORY - Past Medical History Cardiovascular: Congestive heart failure, Hypertension Respiratory: None Endocrine/Autoimmune: Other GI: Esophageal varices, Cirrhosis : None, Other HEENT: Chronic vision loss, Chronic hearing loss Psych: None, Depression Musculoskeletal: None, Chronic back pain Derm: Other Other Past Medical History: essential tremor. hepatic encephalopathy - Past Surgical History Past Surgical History: Yes General: Colonoscopy HEENT: Cataracts - Present Medications Home Medications: Ambulatory Orders Medication Instructions Recorded Confirmed Furosemide [Lasix] 40 mg PO BID 02/01/17 05/07/17 Spironolactone 100 mg PO DAILY 02/09/17 05/07/17 Thiamine HCl [Vitamin B-1] 50 mg PO DAILY 02/09/17 05/07/17 Acetaminophen/Cod 300/30 [Tylenol 1 tab PO BID PRN 05/07/17 05/07/17 #3] Bumetanide 2 mg PO BID 05/07/17 05/07/17 Ferrous Sulfate 325 mg PO BID 05/07/17 05/07/17 Fluticasone [Flonase] 2 sprays ANA BID 05/07/17 05/07/17 Folic Acid 1 mg PO DAILY 05/07/17 05/07/17 Saccharomyces Boulardii [Florastor] 250 mg PO BID 05/07/17 05/07/17 Spironolactone 50 mg PO QPM 05/07/17 05/07/17 rifAXIMin [Xifaxan] 550 mg PO BID 05/07/17 05/07/17 Cephalexin [Keflex] 250 mg PO Q6H #20 capsule 05/09/17 cephALEXin [Keflex] 250 mg PO Q6HR #20 capsule 05/09/17 - Allergies Allergies/Adverse Reactions: Allergies Allergy/AdvReac Type Severity Reaction Status Date / Time levetiracetam [From Keppra] Allergy Unknown Verified 05/11/18 14:23 palifermin [From Kepivance] Allergy Unknown Verified 05/11/18 14:23 - Social History Does the pt smoke?: No Smoking Status: Never smoker Does the pt drink ETOH?: Yes ETOH Use: Liquor Does the pt have substance abuse?: No - Immunizations Immunizations are current?: Yes Immunizations: TDAP current <10years - POLST Patient has POLST: No POLST Status: Full Code (pt report he want to be full code.) PD ED PE NORMAL - Vitals Vital signs reviewed: Yes - General General: Alert and oriented X 3, No acute distress, Well developed/nourished - HEENT HEENT: EOMI, Moist mucous membranes - Neck Neck: Supple, no meningeal sign - Cardiac Cardiac: RRR, No murmur - Respiratory Respiratory: No respiratory distress, Clear bilaterally - Abdomen Abdomen: Normal bowel sounds, Soft, Non tender, Non distended - Rectal Rectal: Other (Nurse diesel truck mechanic at the bedside rectal exam was done nontender. No masses. Scant Liquid maroon stool. Guaiac positive.) - Back Back: No CVA TTP - Derm Derm: Normal color, Warm and dry - Extremities Extremities: No deformity - Neuro Neuro: Alert and oriented X 3, Normal speech - Psych Psych: Normal mood, Normal affect Results - Vitals Vitals: Vital Signs - 24 hr 05/11/18 05/11/18 14:11 15:28 Temperature 36.8 C Heart Rate 103 H 86 Respiratory 18 17 Rate Blood Pressure 155/62 H 143/64 H O2 Saturation 100 99 Oxygen O2 Source Room air - EKG (time done) 1420 Rate: Rate (enter#) Rhythm: Sinus tachycardia [place]: Normal Intervals: Normal MT QRS: Normal Ischemia: Normal ST segments - Labs Labs: Laboratory Tests 05/11/18 05/11/18 05/11/18 14:55 14:55 14:55 WBC 2.0 L* RBC 3.86 L Hgb 6.2 L* Hct 21.0 L MCV 54.4 L MCH 16.0 L MCHC 29.4 L RDW 23.0 H Plt Count 38 L MPV 8.1 PT INR APTT 35.0 H Sodium 132 L Potassium 4.1 Chloride 100 L Carbon Dioxide 22 Anion Gap 10.0 BUN 13 Creatinine 0.8 Estimated GFR (MDRD) 97 Glucose 126 H Calcium 8.6 Total Bilirubin 3.2 H AST 31 ALT 18 Alkaline Phosphatase 20 L Ammonia Total Protein 7.0 Albumin 3.5 Globulin 3.5 Albumin/Globulin Ratio 1.0 Lipase 29 Blood Type Antibody Screen Crossmatch IS Only 05/11/18 05/11/18 05/11/18 14:55 14:55 Unknown WBC RBC Hgb Hct MCV MCH MCHC RDW Plt Count MPV PT 22.7 H INR 2.0 H APTT Sodium Potassium Chloride Carbon Dioxide Anion Gap BUN Creatinine Estimated GFR (MDRD) Glucose Calcium Total Bilirubin AST ALT Alkaline Phosphatase Ammonia 48.4 H Total Protein Albumin Globulin Albumin/Globulin Ratio Lipase Blood Type A NEGATIVE Antibody Screen NEGATIVE Crossmatch IS Only See Detail PD MEDICAL DECISION MAKING - ED course Complexity details: reviewed results, re-evaluated patient, considered differential (Lower GI bleed, alcohol dependence,Varices, anemia, thrombocytopenia), d/w patient, d/w family, d/w PMD, d/w regional sales consultant ED course: 1525 patient informed of low hemoglobin and agreed to blood transfusion.[id number] spoke to the hospitalist Dr. Farley who stated he will only admit patient if general surgeon agrees. [address] Adame who stated he will not accept the patient because the patient has history of varices and they are not capable of treating this patient.Patient needs to be transferred to a higher level of care.Patient informed about this and agreed to be transferred. 1700 Case discussed with [facility] with hospitalist Dr. Matt Dixon. She had accepted the patient. She wants the patient on Protonix and octreotide drip.1744 patient informed of transfer and agreed. Patient has not had any recurrence of bloody stool in the emergency room. Departure - Departure Disposition: 02 Transfer Acute Care Hosp Clinical Impression: Hepatic encephalopathy GI (gastrointestinal hemorrhage) Qualifiers: GI bleed type/associated pathology: unspecified gastrointestinal hemorrhage type Qualified Code(s): K92.2 - Gastrointestinal hemorrhage, unspecified Anemia Qualifiers: Anemia type: other cause Alcohol dependence Qualifiers: Substance use status: uncomplicated Qualified Code(s): F10.20 - Alcohol dependence, uncomplicated Condition: Stable
[2018-05-11 15:24] LABS: ALBUMIN 3.5 g/dL (3.2-5.5); BILIRUBIN,TOTAL 3.2 mg/dL (0.2-1.0); CALCIUM 8.6 mg/dL (8.5-10.3); CREATININE 0.8 mg/dL (0.6-1.2)
[2018-05-11 15:29] LABS: PT - PROTHROMBIN TIME 22.7 secs (9.9-12.6)
[2018-05-11] MEDS: PANTOPRAZOLE 40 MG VIAL IV STA (18:35)
[2018-05-11] MEDS: PANTOPRAZOLE 80 MG in SODIUM CHLORIDE 0.9% 100ML 100 ML IV STA (18:42)
[2018-05-11] MEDS: OCTREOTIDE 500 MCG in SODIUM CHLORIDE 0.9% 100ML 95 ML IV STA (19:10)
[2018-05-11 21:44] VITALS: BP 125/60
== END 2018-05-11 22:02 | disposition short-term general hospital (02) ==
LOC: ED 14:07
DX: K70.40 Alcoholic hepatic failure without coma (principal); K92.2 Gastrointestinal hemorrhage, unspecified; D64.9 Anemia, unspecified; R00.0 Tachycardia, unspecified; I11.0 Hypertensive heart disease with heart failure; I50.9 Heart failure, unspecified
CPT/HCPCS: 36415; 36430; 80053; 82140; 83690; 85027; 85610; 85730; 86850; 86900; 86901; 86920; 93005; 96365; 96366; 96375; 99284

== ENCOUNTER 2018-05-27 10:10 | Outpatient (CLI) | payer MEDICARE, OTHER ==
[2018-05-27 11:16] LABS: BASOPHILS % (AUTO) 1.3 %; EOSINOPHILS % (AUTO) 1.6 %; LYMPHOCYTES # (AUTO) 0.3 10^3/uL (1.5-3.5); LYMPHOCYTES % (AUTO) 11.8 %; MEAN CORPUSCULAR HEMOGLOBIN 21.8 pg (27.0-31.0); MEAN CORPUSCULAR HGB CONC 31.6 g/dL (32.0-36.0); MEAN CORPUSCULAR VOLUME 69.1 fL (80.0-94.0); MEAN PLATELET VOLUME 8.1 fL (7.4-11.4); MONOCYTES # (AUTO) 0.3 10^3/uL (0.0-1.0); MONOCYTES % (AUTO) 13.1 %; NEUTROPHILS # (AUTO) 1.7 10^3/uL (1.5-6.6); NEUTROPHILS % (AUTO) 72.2 %; PLT - PLATELET COUNT 80 10^3/uL (130-450); RED BLOOD COUNT 4.12 10^6/uL (4.70-6.10); RED CELL DISTRIBUTION WIDTH 31.9 % (12.0-15.0); WHITE BLOOD COUNT 2.4 x10^3/uL (4.8-10.8)
[2018-05-27 11:27] LABS: ALBUMIN 3.6 g/dL (3.2-5.5); ALBUMIN/GLOBULIN RATIO 1.1 (1.0-2.2); BILIRUBIN,TOTAL 1.5 mg/dL (0.2-1.0); CALCIUM 8.8 mg/dL (8.5-10.3); CREATININE 0.6 mg/dL (0.6-1.2); TOTAL PROTEIN 6.8 g/dL (6.7-8.2)
[2018-05-27 11:39] LABS: RBC MORPHOLOGY (MULTIPLE) 4+ ANISOCYTOSIS (NORMAL)
== END 2018-05-27 10:11 | disposition home or self-care (01) ==
LOC: LAB 10:10
PROVIDERS: ATTEND Family Medicine
DX: C18.9 Malignant neoplasm of colon, unspecified (principal)
CPT/HCPCS: 36415; 80053; 82140; 85025; 85610

== ENCOUNTER 2019-03-28 17:20 | Outpatient (CLI) | payer MEDICARE, OTHER | END 2019-03-28 17:21 | disposition critical access hospital (66) | LOC: EMS 17:20 | PROVIDERS: ATTEND Surgery | DX: K62.5 Hemorrhage of anus and rectum (principal) ==

== ENCOUNTER 2019-03-28 17:44 | Emergency (ER) | payer MEDICARE, OTHER ==
[2019-03-28] MEDS ORDERED: cefTRIAXone 1 GM in SODIUM CHLORIDE 0.9% MINIBAG 100 ML IV STA (17:50)
[2019-03-28] MEDS ORDERED: PANTOPRAZOLE 40 MG VIAL IVP STA (17:50)
[2019-03-28] MEDS ORDERED: SODIUM CHLORIDE 0.9% 1,000 ML IV ONE (17:50)
[2019-03-28] MEDS ORDERED: PANTOPRAZOLE 80 MG in SODIUM CHLORIDE 0.9% 100ML 100 ML IV STA (17:50)
[2019-03-28] MEDS ORDERED: OCTREOTIDE 500 MCG in SODIUM CHLORIDE 0.9% 100ML 95 ML IV STA (17:50)
[2019-03-28] MEDS ORDERED: OCTREOTIDE 100 MCG/ML VIAL IVP STA (17:50)
--- NOTE | 2019-03-28 17:53 | ED Physician Documentation ---
PD HPI ABD PAIN - Stated complaint Stated Complaint: GI BLEED - History obtained from History obtained from: Patient - History of Present Illness Timing - onset: Today (This is a 69-year-old gentleman who presents by ambulance for 2 large dark bloody bowel movements today. He says he has no history of alcoholic liver disease or liver disease in general except for some sort of liver cancer. He says he has not had any treatment on the liver cancer because he cannot get to [place] where he is supposed to get treatment for it. He is generally an unhelpful historian but says he is not a drinker.Review of the chart shows a similar episode in April of last year where he was transferred because of known varices and alcoholic liver disease. However he says he is on a whole bunch of medications but he does not know what, nor what they are for.) Review of Systems Ten Systems: 10 systems reviewed and negative Constitutional: denies: Fever, Chills GI: reports: Bloody / black stool. denies: Abdominal Pain, Nausea, Hematemesis Skin: reports: Reviewed and negative PD PAST MEDICAL HISTORY - Past Medical History Cardiovascular: Congestive heart failure, Hypertension Respiratory: None Endocrine/Autoimmune: Other GI: Esophageal varices, Cirrhosis : None, Other HEENT: Chronic vision loss, Chronic hearing loss Psych: None, Depression Musculoskeletal: None, Chronic back pain Derm: Other - Past Surgical History Past Surgical History: Yes General: Colonoscopy HEENT: Cataracts - Present Medications Home Medications: Ambulatory Orders Medication Instructions Recorded Confirmed Fluticasone [Flonase] 2 sprays ANA BID 05/07/17 05/07/17 rifAXIMin [Xifaxan] 550 mg PO BID 05/07/17 05/07/17 Lorazepam [Ativan] 1 mg PO TID PRN #15 tablet 03/28/19 Ondansetron Odt [Zofran] 4 mg TL Q6H PRN #10 tablet 03/28/19 Ondansetron [Zuplenz] 4 mg PO 03/28/19 03/28/19 - Allergies Allergies/Adverse Reactions: Allergies Allergy/AdvReac Type Severity Reaction Status Date / Time celecoxib [From Celebrex] Allergy Unknown Verified 03/28/19 17:54 levetiracetam [From Keppra] Allergy Unknown Verified 11/04/19 17:54 meloxicam [From Mobic] Allergy Unknown Verified 03/28/19 17:54 palifermin [From [place]] Allergy Unknown Verified 03/28/19 17:54 propanolol Allergy Unknown Uncoded 03/28/19 17:54 - Social History Does the pt smoke?: No Smoking Status: Never smoker Does the pt drink ETOH?: Yes Does the pt have substance abuse?: No - Family History Family history: reports: Non contributory - Immunizations Immunizations are current?: Yes Immunizations: TDAP current <10years - POLST Patient has POLST: No POLST Status: Full Code (pt report he want to be full code.) PD ED PE NORMAL - Vitals Vital signs reviewed: Yes - General General: Alert and oriented X 3 (He appears shaky, he appears to be in alcohol withdrawal, he says it is from his central tremor) - HEENT HEENT: Other (Mildly icteric sclera) - Neck Neck: Supple, no meningeal sign, No bony TTP - Cardiac Cardiac: RRR, No murmur - Respiratory Respiratory: No respiratory distress, Clear bilaterally - Abdomen Abdomen: Other (Mildly distended but not tense, palpable liver edge, nontender) - Back Back: No CVA TTP, No spinal TTP - Derm Derm: Normal color, Warm and dry - Extremities Extremities: Other (A lot of bruises) - Neuro Neuro: Alert and oriented X 3, Normal speech Results - Vitals Vitals: Vital Signs - 24 hr 03/28/19 03/28/19 03/28/19 17:50 18:00 18:32 Temperature 38.3 C H Heart Rate 100 100 83 Respiratory 18 18 18 Rate Blood Pressure 146/76 H 146/76 H 144/76 H O2 Saturation 96 95 98 03/28/19 19:50 Temperature Heart Rate 99 Respiratory 18 Rate Blood Pressure 137/72 H O2 Saturation 95 Oxygen O2 Source Room air - Labs Labs: Laboratory Tests 03/28/19 03/28/19 03/28/19 18:00 18:00 18:00 WBC 2.9 L RBC 4.21 L Hgb 9.0 L Hct 30.2 L MCV 71.7 L MCH 21.4 L MCHC 29.8 L RDW 21.8 H Plt Count 39 L Neut # (Auto) 2.3 Lymph # (Auto) 0.3 L [place] # (Auto) 0.2 Eos # (Auto) 0.0 Baso # (Auto) 0.0 Absolute Nucleated RBC 0.00 Nucleated RBC % 0.0 Manual Slide Review Indicated WBC Morphology 1+ TOXIC GRANULATION Platelet Estimate DECREASED (<130,000) Platelet Morphology NORMAL APPEARANCE RBC Morph Micro Appear 3+ ANISOCYTOSIS PT 20.7 H INR 1.9 H Sodium 140 Potassium 3.6 Chloride 106 Carbon Dioxide 23 Anion Gap 11.0 BUN 9 Creatinine 0.6 Estimated GFR (MDRD) 134 Glucose 94 Calcium 8.1 L Total Bilirubin 3.5 H AST 55 H ALT 18 Alkaline Phosphatase 23 L Ammonia Total Protein 6.5 L Albumin 3.0 L Globulin 3.5 Albumin/Globulin Ratio 0.9 L Lipase 32 Ethyl Alcohol 32.6 Blood Type Antibody Screen 03/28/19 03/28/19 18:00 18:00 WBC RBC Hgb Hct MCV MCH MCHC RDW Plt Count Neut # (Auto) Lymph # (Auto) [place] # (Auto) Eos # (Auto) Baso # (Auto) Absolute Nucleated RBC Nucleated RBC % Manual Slide Review WBC Morphology Platelet Estimate Platelet Morphology RBC Morph Micro Appear PT INR Sodium Potassium Chloride Carbon Dioxide Anion Gap BUN Creatinine Estimated GFR (MDRD) Glucose Calcium Total Bilirubin AST ALT Alkaline Phosphatase Ammonia 53.0 H Total Protein Albumin Globulin Albumin/Globulin Ratio Lipase Ethyl Alcohol Blood Type A NEGATIVE Antibody Screen NEGATIVE PD MEDICAL DECISION MAKING - ED course ED course: Review of the chart shows that this gentleman has a history of alcoholic liver disease and varices. He denies any alcohol use, but then says his last drink was a week ago. He looks to be in alcohol withdrawal, he is tachycardic, hypertension, and shaky with low-grade fever. He is noted to be pancytopenic with platelet count of only 39. He will need transfer to a higher level of care with GI consultation and a more robust blood bank then we have here as we do not stock platelets here. Call to [place] was made for potential transfer at 1825 noting that is where he was transferred last year for specialty care under similar circumstances. Spoke with Dr Rivera, GI at [facility], reviewed records, he does not have varices, but does have colon CA mass with bleeding. Recommends a palliative care consultation, she does not feel like any intervention is available at this juncture. This was discussed with the patient, and he was receptive. He has been told by several physicians that there is really no intervention available to him except for palliative issues. He signed out from multiple facilities AMA. After this discussion he said he wanted to go home and he understands he may there. I spoke with his primary care physician, EDUARDO Grayson and she will reach out to him as well and they are considering hospice. Departure - Departure Disposition: Home, Self Care Clinical Impression: Gastrointestinal hemorrhage with melena, Pancytopenia, Metastatic colon cancer to liver Alcohol dependence Qualifiers: Substance use status: in withdrawal Complication of substance-induced condition: uncomplicated Qualified Code(s): F10.230 - Alcohol dependence with withdrawal, uncomplicated Condition: Good Record reviewed to determine appropriate education?: Yes Follow-Up: Lisa Grayson PA-C [Provider Admit Priv/Credential] - Prescriptions: Lorazepam [Ativan] 1 mg PO TID PRN #15 tablet PRN Reason: Anxiety Ondansetron Odt [Zofran] 4 mg TL Q6H PRN #10 tablet PRN Reason: Nausea / Vomiting Comments: I spoke with Lisa lu, she will reach out to you, they are considering hospice. Return for any new or worsening symptoms. Discharge Date/Time: 03/28/19 19:57
[2019-03-28 18:16] LABS: BASOPHILS % (AUTO) 0.7 %; LYMPHOCYTES # (AUTO) 0.3 10^3/uL (1.5-3.5); MEAN CORPUSCULAR HEMOGLOBIN 21.4 pg (27.0-31.0); MEAN CORPUSCULAR HGB CONC 29.8 g/dL (32.0-36.0); MEAN CORPUSCULAR VOLUME 71.7 fL (80.0-94.0); MONOCYTES # (AUTO) 0.2 10^3/uL (0.0-1.0); MONOCYTES % (AUTO) 8.2 %; NEUTROPHILS # (AUTO) 2.3 10^3/uL (1.5-6.6); NEUTROPHILS % (AUTO) 79.8 %; PLT - PLATELET COUNT 39 10^3/uL (130-450); RED BLOOD COUNT 4.21 10^6/uL (4.70-6.10); RED CELL DISTRIBUTION WIDTH 21.8 % (12.0-15.0); WHITE BLOOD COUNT 2.9 x10^3/uL (4.8-10.8)
[2019-03-28] MEDS ORDERED: ONDANSETRON 4 MG/2 ML VIAL IVP STA (18:19)
[2019-03-28] MEDS ORDERED: LORazepam 2 MG/ML VIAL IVP STA (18:19)
[2019-03-28 18:20] LABS: INR 1.9 (0.8-1.2); PT - PROTHROMBIN TIME 20.7 secs (9.9-12.6)
[2019-03-28 18:27] LABS: ALBUMIN/GLOBULIN RATIO 0.9 (1.0-2.2); BILIRUBIN,TOTAL 3.5 mg/dL (0.2-1.0); CALCIUM 8.1 mg/dL (8.5-10.3); CREATININE 0.6 mg/dL (0.6-1.2); TOTAL PROTEIN 6.5 g/dL (6.7-8.2)
[2019-03-28 18:41] LABS: PLATELET ESTIMATE, MANUAL DECREASED (<130,000) (NORMAL); PLATELET MORPHOLOGY NORMAL APPEARANCE (NORMAL)
[2019-03-28 19:51] VITALS: BP 137/72
== END 2019-03-28 19:57 | disposition home or self-care (01) ==
LOC: EDBD → EDUNIT# → ED 17:44
DX: K92.1 Melena (principal); C18.9 Malignant neoplasm of colon, unspecified; C78.7 Secondary malignant neoplasm of liver and intrahepatic bile duct; F10.230 Alcohol dependence with withdrawal, uncomplicated; D61.818 Other pancytopenia; I10 Essential (primary) hypertension
CPT/HCPCS: 36415; 80053; 82140; 83690; 85025; 85610; 86850; 86900; 86901; 96365; 96368; 96375; 99284; 99285; J2060; J2354; 80320

== ENCOUNTER 2019-06-29 14:25 | Outpatient (CLI) | payer MEDICARE, OTHER ==
[2019-06-29 19:22] LABS: BASOPHILS % (AUTO) 0.6 %; EOSINOPHILS # (AUTO) 0.1 10^3/uL (0.0-0.7); HGB - HEMOGLOBIN 10.4 g/dL (14.0-18.0); LYMPHOCYTES # (AUTO) 0.3 10^3/uL (1.5-3.5); LYMPHOCYTES % (AUTO) 8.2 %; MEAN CORPUSCULAR HEMOGLOBIN 21.4 pg (27.0-31.0); MEAN CORPUSCULAR HGB CONC 29.6 g/dL (32.0-36.0); MEAN CORPUSCULAR VOLUME 72.4 fL (80.0-94.0); MONOCYTES # (AUTO) 0.3 10^3/uL (0.0-1.0); MONOCYTES % (AUTO) 9.1 %; NEUTROPHILS # (AUTO) 2.8 10^3/uL (1.5-6.6); NEUTROPHILS % (AUTO) 79.5 %; PLT - PLATELET COUNT 61 10^3/uL (130-450); RED BLOOD COUNT 4.85 10^6/uL (4.70-6.10); RED CELL DISTRIBUTION WIDTH 21.2 % (12.0-15.0); WHITE BLOOD COUNT 3.5 x10^3/uL (4.8-10.8)
[2019-06-29 19:52] LABS: ALBUMIN 3.3 g/dL (3.2-5.5); BILIRUBIN,TOTAL 2.5 mg/dL (0.2-1.0); CALCIUM 8.2 mg/dL (8.5-10.3); CREATININE 0.7 mg/dL (0.6-1.2); TOTAL PROTEIN 6.7 g/dL (6.7-8.2)
[2019-06-29 20:02] LABS: PT - PROTHROMBIN TIME 21.5 secs (9.9-12.6)
[2019-06-29 21:16] LABS: PLATELET MORPHOLOGY NORMAL APPEARANCE (NORMAL)
[2019-06-29 21:17] LABS: PLATELET ESTIMATE, MANUAL DECREASED (<130,000) (NORMAL)
== END 2019-06-29 23:59 | disposition home or self-care (01) ==
LOC: LAB.WCP 14:25
PROVIDERS: ATTEND Family Medicine
DX: C18.9 Malignant neoplasm of colon, unspecified (principal); K70.30 Alcoholic cirrhosis of liver without ascites; R63.0 Anorexia
CPT/HCPCS: 36415; 80053; 84134; 85025; 85610

== ENCOUNTER 2019-07-06 23:50 | Outpatient (CLI) | payer MEDICARE, OTHER | END 2019-07-06 23:51 | disposition critical access hospital (66) | LOC: EMS 23:50 | PROVIDERS: ATTEND Surgery | DX: R10.12 Left upper quadrant pain (principal) | CPT/HCPCS: A0425; A0429 ==

== ENCOUNTER 2019-07-07 00:07 | Emergency (ER) | payer MEDICARE, OTHER ==
--- NOTE | 2019-07-07 00:12 | ED Physician Documentation ---
History of Present Illness - Stated complaint Stated Complaint: LEFT SIDED UPPER ABD PAIN, DIARRHEA - History obtained from History obtained from: Patient (the patient is a 69 y/o m who arrives via ems w a cc of left sided rib/chest pain. he denies any hx of mi or stroke. he admits to heavy etoh use and subsequent hepatic encephalopathy as well as cirrhosis of the liver. he denies any other c/o. reports he has a pcp that he sees monthly.) Review of Systems Ten Systems: 10 systems reviewed and negative Eyes: reports: Reviewed and negative Ears: reports: Reviewed and negative Nose: reports: Reviewed and negative Throat: reports: Reviewed and negative Cardiac: reports: Chest pain / pressure Respiratory: reports: Reviewed and negative GI: reports: Abdominal Swelling (reports liver disease 2nd to etoh.) : reports: Reviewed and negative Skin: reports: Reviewed and negative Musculoskeletal: reports: Reviewed and negative Neurologic: reports: Reviewed and negative Psychiatric: reports: Reviewed and negative Endocrine: reports: Reviewed and negative Immunocompromised: reports: Reviewed and negative PD PAST MEDICAL HISTORY - Past Medical History Cardiovascular: Congestive heart failure, Hypertension Respiratory: None Endocrine/Autoimmune: Other GI: Esophageal varices, Cirrhosis : None, Other HEENT: Chronic vision loss, Chronic hearing loss Psych: None, Depression Musculoskeletal: None, Chronic back pain Derm: Other - Past Surgical History Past Surgical History: Yes General: Colonoscopy HEENT: Cataracts - Present Medications Home Medications: Ambulatory Orders Medication Instructions Recorded Confirmed Fluticasone [Flonase] 2 sprays ANA BID 05/07/17 05/07/17 rifAXIMin [Xifaxan] 550 mg PO BID 05/07/17 05/07/17 Lorazepam [Ativan] 1 mg PO TID PRN #15 tablet 03/28/19 Ondansetron Odt [Zofran] 4 mg TL Q6H PRN #10 tablet 03/28/19 Ondansetron [Zuplenz] 4 mg PO 03/28/19 03/28/19 - Allergies Allergies/Adverse Reactions: Allergies Allergy/AdvReac Type Severity Reaction Status Date / Time celecoxib [From Celebrex] Allergy Unknown Verified 07/07/19 00:12 levetiracetam [From Keppra] Allergy Unknown Verified 07/07/19 00:12 meloxicam [From Mobic] Allergy Unknown Verified 07/07/19 00:12 palifermin [From [place]] Allergy Unknown Verified 07/07/19 00:12 propanolol Allergy Unknown Uncoded 07/07/19 00:12 - Social History Does the pt smoke?: No Smoking Status: Never smoker Does the pt drink ETOH?: Yes Does the pt have substance abuse?: No - Immunizations Immunizations are current?: Yes Immunizations: TDAP current <10years - POLST Patient has POLST: No POLST Status: Full Code (pt report he want to be full code.) PD ED PE NORMAL - Vitals Vital signs reviewed: Yes - General General: Alert and oriented X 3, No acute distress - HEENT HEENT: Atraumatic, PERRL, EOMI - Neck Neck: Supple, no meningeal sign, No JVD - Cardiac Cardiac: RRR, No murmur, Strong equal pulses - Respiratory Respiratory: No respiratory distress, Clear bilaterally - Abdomen Abdomen: Normal bowel sounds, Soft, Non tender, Other (hepatomegaly, no midline abdominal pulsatile mass, ascites present, non tender) - Derm Derm: Warm and dry - Extremities Extremities: No deformity - Neuro Neuro: Alert and oriented X 3, No motor deficit, No sensory deficit, Normal speech - Psych Psych: Normal mood, Normal affect Results - Vitals Vitals: Vital Signs - 24 hr 07/07/19 07/07/19 07/07/19 00:12 00:15 01:28 Temperature 37.2 C 37.2 C Heart Rate 80 80 79 Respiratory 14 14 22 Rate Blood Pressure 139/70 H 139/70 H 121/69 O2 Saturation 100 100 100 Oxygen O2 Source Room air - EKG (time done) 00:23 Rate: Rate (enter#) (80), Other (NO STEMI) Rhythm: NSR [place]: LAD Intervals: Other (TX 202) QRS: Poor R wave progression Ischemia: Non specific changes 02:24 Rate: Rate (enter#) (78) Rhythm: NSR [place]: LAD Intervals: Other (TX 211) Ischemia: Non specific changes - Labs Labs: Laboratory Tests 07/07/19 07/07/19 07/07/19 00:40 00:40 00:40 WBC 2.4 L RBC 4.92 Hgb 10.5 L Hct 35.7 L MCV 72.6 L MCH 21.3 L MCHC 29.4 L RDW 22.7 H Plt Count 68 L Neut # (Auto) 1.7 Lymph # (Auto) 0.3 L [place] # (Auto) 0.2 Eos # (Auto) 0.1 Baso # (Auto) 0.0 Absolute Nucleated RBC 0.00 Band Neuts % (Manual) Not Reportable Abnorm Lymph % (Manual) Not Reportable Nucleated RBC % 0.0 Neutrophils # (Manual) Not Reportable Lymphocytes # (Manual) Not Reportable Monocytes # (Manual) Not Reportable Eosinophils # (Manual) Not Reportable Basophils # (Manual) Not Reportable Differential Comment MANUAL=AUTO DIFF Platelet Estimate DECREASED (<130,000) RBC Morph Micro Appear 1+ OVALOCYTES PT 18.6 H INR 1.7 H APTT 30.2 Sodium Potassium Chloride Carbon Dioxide Anion Gap BUN Creatinine Estimated GFR (MDRD) Glucose Calcium Total Bilirubin Direct Bilirubin AST ALT Alkaline Phosphatase Ammonia 32.5 CK-MB (CK-2) Troponin I High Sens B-Natriuretic Peptide Total Protein Albumin Globulin Urine Color Urine Clarity Urine pH Ur Specific [place] Urine Protein Urine Glucose (UA) Urine Ketones Urine Occult Blood Urine Nitrite Urine Bilirubin Urine Urobilinogen Ur Leukocyte Esterase Urine RBC Urine WBC Ur Squamous Epith Cells Urine Crystals Urine Bacteria Urine Mucus Ur Microscopic Review Urine Culture Comments Ethyl Alcohol 07/07/19 07/07/19 07/07/19 00:40 00:40 00:40 WBC RBC Hgb Hct MCV MCH MCHC RDW Plt Count Neut # (Auto) Lymph # (Auto) [place] # (Auto) Eos # (Auto) Baso # (Auto) Absolute Nucleated RBC Band Neuts % (Manual) Abnorm Lymph % (Manual) Nucleated RBC % Neutrophils # (Manual) Lymphocytes # (Manual) Monocytes # (Manual) Eosinophils # (Manual) Basophils # (Manual) Differential Comment Platelet Estimate RBC Morph Micro Appear PT INR APTT Sodium 136 Potassium 3.1 L Chloride 104 Carbon Dioxide 24 Anion Gap 8.0 BUN 7 Creatinine 0.6 Estimated GFR (MDRD) 134 Glucose 94 Calcium 8.3 L Total Bilirubin 2.0 H Direct Bilirubin 0.7 H AST 39 ALT 20 Alkaline Phosphatase 29 L Ammonia CK-MB (CK-2) 3.7 Troponin I High Sens B-Natriuretic Peptide 78 Total Protein 7.1 Albumin 3.2 Globulin 3.9 Urine Color Urine Clarity Urine pH Ur Specific [place] Urine Protein Urine Glucose (UA) Urine Ketones Urine Occult Blood Urine Nitrite Urine Bilirubin Urine Urobilinogen Ur Leukocyte Esterase Urine RBC Urine WBC Ur Squamous Epith Cells Urine Crystals Urine Bacteria Urine Mucus Ur Microscopic Review Urine Culture Comments Ethyl Alcohol 54.3 07/07/19 07/07/19 07/07/19 00:40 00:55 02:25 WBC RBC Hgb Hct MCV MCH MCHC RDW Plt Count Neut # (Auto) Lymph # (Auto) [place] # (Auto) Eos # (Auto) Baso # (Auto) Absolute Nucleated RBC Band Neuts % (Manual) Abnorm Lymph % (Manual) Nucleated RBC % Neutrophils # (Manual) Lymphocytes # (Manual) Monocytes # (Manual) Eosinophils # (Manual) Basophils # (Manual) Differential Comment Platelet Estimate RBC Morph Micro Appear PT INR APTT Sodium Potassium Chloride Carbon Dioxide Anion Gap BUN Creatinine Estimated GFR (MDRD) Glucose Calcium Total Bilirubin Direct Bilirubin AST ALT Alkaline Phosphatase Ammonia CK-MB (CK-2) Troponin I High Sens < 2.3 L < 2.3 L B-Natriuretic Peptide Total Protein Albumin Globulin Urine Color ORANGE Urine Clarity CLEAR Urine pH Ur Specific [place] Urine Protein Urine Glucose (UA) NEGATIVE Urine Ketones Urine Occult Blood NEGATIVE Urine Nitrite Urine Bilirubin NEGATIVE Urine Urobilinogen Ur Leukocyte Esterase NEGATIVE Urine RBC 0-5 Urine WBC 0-3 Ur Squamous Epith Cells NONE SEEN Urine Crystals 6-10 Calcium Oxalate Urine Bacteria Rare Urine Mucus Marked Strands Ur Microscopic Review NOT INDICATED Urine Culture Comments NOT INDICATED Ethyl Alcohol PD MEDICAL DECISION MAKING - ED course Complexity details: re-evaluated patient (pain free.), d/w patient, other (negat suki troponin x 2, negative ekg x 2. Offered admission to patient for observation, patient would like to go home and follow up with his pcp today. ) Departure - Departure Disposition: Home, Self Care Clinical Impression: Liver disease Chest pain Qualifiers: Chest pain type: unspecified Qualified Code(s): R07.9 - Chest pain, unspecified Condition: Good Instructions: ED Chest Pain Atypical Unkn Cause Follow-Up: Lisa Grayson PA-C [Primary Care Provider] - 07/07/19
[2019-07-07] MEDS ORDERED: ASPIRIN 325 MG TABLET PO STA (00:15)
[2019-07-07 00:49] LABS: BASOPHILS % (AUTO) 0.4 %; EOSINOPHILS # (AUTO) 0.1 10^3/uL (0.0-0.7); EOSINOPHILS % (AUTO) 2.6 %; HGB - HEMOGLOBIN 10.5 g/dL (14.0-18.0); LYMPHOCYTES # (AUTO) 0.3 10^3/uL (1.5-3.5); LYMPHOCYTES % (AUTO) 13.6 %; MEAN CORPUSCULAR HEMOGLOBIN 21.3 pg (27.0-31.0); MEAN CORPUSCULAR HGB CONC 29.4 g/dL (32.0-36.0); MEAN CORPUSCULAR VOLUME 72.6 fL (80.0-94.0); MONOCYTES # (AUTO) 0.2 10^3/uL (0.0-1.0); MONOCYTES % (AUTO) 10.2 %; NEUTROPHILS # (AUTO) 1.7 10^3/uL (1.5-6.6); NEUTROPHILS % (AUTO) 72.8 %; PLT - PLATELET COUNT 68 10^3/uL (130-450); RED BLOOD COUNT 4.92 10^6/uL (4.70-6.10); RED CELL DISTRIBUTION WIDTH 22.7 % (12.0-15.0); WHITE BLOOD COUNT 2.4 x10^3/uL (4.8-10.8)
[2019-07-07 00:51] LABS: INR 1.7 (0.8-1.2); PT - PROTHROMBIN TIME 18.6 secs (9.9-12.6)
--- NOTE | 2019-07-07 00:55 | XRAY Report ---
Reason: chest pain Procedure Date: 07/07/2019 Accession Number: [id number] / [id number] Procedure: XR - Chest 1 View X-Ray CPT Code: 99671 Final Report FULL RESULT: EXAM: CHEST RADIOGRAPHY EXAM DATE: 07/07/2019 12:29 AM. CLINICAL HISTORY: Chest pain. COMPARISON: 05/08/2017. TECHNIQUE: 1 view. FINDINGS: Lungs/Pleura: Elevated right hemidiaphragm. No alveolar consolidation or pleural effusion seen. No pneumothorax. Mediastinum: Within exam limitations, heart size is upper normal. Tortuous ectatic aorta. Other: None. IMPRESSION: 1. No alveolar consolidation or pleural effusion seen. 2. Borderline heart size with tortuous ectatic aorta. RADIA
[2019-07-07 01:03] LABS: ALBUMIN 3.2 g/dL (3.2-5.5); BILIRUBIN,DIRECT 0.7 mg/dL (0.1-0.5); CALCIUM 8.3 mg/dL (8.5-10.3); CREATININE 0.6 mg/dL (0.6-1.2); TOTAL PROTEIN 7.1 g/dL (6.7-8.2)
[2019-07-07 01:04] LABS: PARTIAL THROMBOPLASTIN TIME 30.2 secs (24.9-33.3)
[2019-07-07 01:04] LABS: GLUCOSE, URINE (UA) NEGATIVE (NEGATIVE); LEUKOCYTE ESTERASE, URINE NEGATIVE (NEGATIVE); OCCULT BLOOD,URINE NEGATIVE (NEGATIVE)
[2019-07-07 01:09] LABS: CLARITY,URINE CLEAR (CLEAR)
[2019-07-07 01:13] LABS: BILIRUBIN,URINE NEGATIVE (NEGATIVE); ICTOTEST,URINE NEGATIVE
[2019-07-07 01:17] LABS: BACTERIA,URINE Rare /HPF (None Seen); CRYSTALS,URINE 6-10 Calcium Oxalate /LPF; MUCUS,URINE Marked Strands; RBC,URINE 0-5 /HPF (0-5); SQUAMOUS EPITHELIAL CELL,UR NONE SEEN (<= Few)
[2019-07-07 01:51] LABS: DIFFERENTIAL COMMENT MANUAL=AUTO DIFF; PLATELET ESTIMATE, MANUAL DECREASED (<130,000) (NORMAL)
[2019-07-07 03:02] VITALS: BP 124/68
== END 2019-07-07 03:08 | disposition home or self-care (01) ==
LOC: EDUNIT# → EDBD → ED 00:07
DX: R07.9 Chest pain, unspecified (principal); K70.31 Alcoholic cirrhosis of liver with ascites; I11.0 Hypertensive heart disease with heart failure; I50.9 Heart failure, unspecified
CPT/HCPCS: 36415; 71045; 80048; 80076; 81003; 82140; 82553; 83880; 84484; 85025; 85610; 85730; 93005; 99283; 99284; A9270; 80320; 81001; 87086

== ENCOUNTER 2019-08-01 13:51 | Outpatient (CLI) | payer MEDICARE, OTHER ==
[2019-08-01] MEDS ORDERED: IOVERSOL 320 50 ML VIAL ONE (13:57)
[2019-08-01] MEDS ORDERED: IOVERSOL 320 100 ML VIAL IVP ONE ×2 (13:57→15:03)
[2019-08-01] MEDS ORDERED: IOVERSOL 320 50 ML VIAL PO ONE (15:03)
--- NOTE | 2019-08-03 11:52 | CT Report ---
Reason: COLON CA, LUQ ABD PAIN Procedure Date: 08/01/2019 Accession Number: [id number] / [id number] Procedure: CT - Abdomen/Pelvis W CPT Code: Final Report FULL RESULT: EXAM: CT ABDOMEN AND PELVIS EXAM DATE: 08/01/2019 03:02 PM. CLINICAL HISTORY: Left upper quadrant pain. Colon cancer. COMPARISONS: ABDOMEN/PELVIS W/ 02/03/2017 8:17 PM. TECHNIQUE: Routine helical CT imaging was performed through the abdomen and pelvis. IV contrast: OPTIRAY 320. Enteric contrast: Yes. Reconstructions: Coronal and sagittal. In accordance with CT protocol optimization, one or more of the following dose reduction techniques were utilized for this exam: automated exposure control, adjustment of mA and/or KV based on patient size, or use of iterative reconstructive technique. FINDINGS: Lung Bases: Unremarkable. Liver: New findings of multiple hypodense right lobe of the liver lesions which are not characterized and most suspicious for metastatic disease, though multifocal HCC is obviously in the differential diagnosis in this setting. 1.4 x 1.0 cm at the dome as seen coronally on image 44, lesion in segment 6 measuring 1.3 x 2.4 cm axially on image 29 segment 7, lesion measuring 2 x 3 x 1.8 cm coronally, also seen on axial image 19. Cirrhotic configuration with nodular contour, decreased overall size. Gallbladder/Bile Ducts: Redemonstration of contracted thick-walled scarred appearing gallbladder with cholelithiasis, unchanged appearance. Spleen: Marked splenomegaly up to 22 cm as seen coronally. Pancreas: Normal. Adrenal Glands: Normal. Kidneys: Normal. No masses or hydronephrosis. Peritoneal Cavity/Bowel: There is ascites. There is no bowel obstruction. There is no free air. By size criteria, no lymphadenopathy. Pelvic Organs: Normal. The bladder and visualized pelvic organs are within normal limits. Vasculature: Marked prominence of the portal venous system in the setting of cirrhotic configuration with splenomegaly, portal hypertension suspected. Redemonstration of significant arterial atherosclerotic disease with proximal SMA atherosclerotic disease, combination of calcific and hypodense plaque redemonstrated, not well characterized on this exam. As seen coronally on image 20 and axially on image 40 there is a homogenous portal venous density enhancing saccular structure which measures 2.2 x 1.6 cm and demonstrates entering and exiting vessels going to the mesenteric venous plexus and the gastric veins. Focal varicosity, also seen previously but now enlarged. Bones: No significant abnormality. Other: None. IMPRESSION: New hypodense liver masses, suspicious for metastatic disease. These are not formally characterized in the setting of cirrhosis and multifocal HCC would also be in the differential diagnosis. Cirrhotic configuration with ascites and interval increase in splenomegaly and distention of the portal system suggestive of portal hypertension. Regarding the left upper quadrant pain, splenic origin of pain as well as portal gastropathy would be plausible with this imaging appearance. Gastric varices with anatomic considerations as described above. Recommendation: Gastroenterologic evaluation with bleeding risk stratification and evaluation for potential preventative intervention. RADIA
== END 2019-08-01 13:52 | disposition home or self-care (01) ==
LOC: DI 13:51
PROVIDERS: ATTEND Physician Assistant Medical
DX: C18.9 Malignant neoplasm of colon, unspecified (principal); R16.0 Hepatomegaly, not elsewhere classified; K74.60 Unspecified cirrhosis of liver; R18.8 Other ascites
CPT/HCPCS: 74177; Q9967

== ENCOUNTER 2019-09-01 15:28 | Outpatient (CLI) | payer MEDICARE, OTHER ==
--- NOTE | 2019-09-02 04:33 | XRAY Report ---
Reason: COUGH Procedure Date: 09/01/2019 Accession Number: [id number] / [id number] Procedure: WCP - Chest 2 View X-Ray CPT Code: 52377 Final Report FULL RESULT: EXAM: CHEST RADIOGRAPHY EXAM DATE: 09/01/2019 03:28 PM. CLINICAL HISTORY: COUGH. COMPARISON: CHEST 1 VIEW 07/07/2019 12:14 AM. TECHNIQUE: 2 views. FINDINGS: Lungs/Pleura: No focal opacities evident. No pleural effusion. No pneumothorax. Normal volumes. Mediastinum: Heart and mediastinal contours are unremarkable. Mild atherosclerosis at aortic arch. Other: None. IMPRESSION: No radiographic evidence of acute cardiopulmonary process. RADIA
== END 2019-09-01 23:59 | disposition home or self-care (01) ==
LOC: DI.WCP 15:28
PROVIDERS: ATTEND Physician Assistant Medical
DX: R05 Cough (principal)
CPT/HCPCS: 71046

== ENCOUNTER 2019-09-15 14:38 | Outpatient (CLI) | payer MEDICARE, OTHER ==
[2019-09-15 17:49] LABS: BASOPHILS % (AUTO) 0.3 %; EOSINOPHILS # (AUTO) 0.1 10^3/uL (0.0-0.7); EOSINOPHILS % (AUTO) 1.7 %; HGB - HEMOGLOBIN 8.7 g/dL (14.0-18.0); LYMPHOCYTES # (AUTO) 0.4 10^3/uL (1.5-3.5); LYMPHOCYTES % (AUTO) 6.4 %; MEAN CORPUSCULAR HEMOGLOBIN 21.9 pg (27.0-31.0); MEAN CORPUSCULAR HGB CONC 30.3 g/dL (32.0-36.0); MEAN CORPUSCULAR VOLUME 72.1 fL (80.0-94.0); MEAN PLATELET VOLUME 9.9 fL (7.4-11.4); MONOCYTES # (AUTO) 0.4 10^3/uL (0.0-1.0); MONOCYTES % (AUTO) 6.7 %; NEUTROPHILS # (AUTO) 5.5 10^3/uL (1.5-6.6); NEUTROPHILS % (AUTO) 84.1 %; PLT - PLATELET COUNT 116 10^3/uL (130-450); RED BLOOD COUNT 3.98 10^6/uL (4.70-6.10); RED CELL DISTRIBUTION WIDTH 18.1 % (12.0-15.0); WHITE BLOOD COUNT 6.5 x10^3/uL (4.8-10.8)
[2019-09-15 18:05] LABS: ALBUMIN 3.1 g/dL (3.2-5.5); ALBUMIN/GLOBULIN RATIO 0.9 (1.0-2.2); BILIRUBIN,TOTAL 1.4 mg/dL (0.2-1.0); CALCIUM 8.4 mg/dL (8.5-10.3); CREATININE 0.6 mg/dL (0.6-1.2); TOTAL PROTEIN 6.7 g/dL (6.7-8.2)
[2019-09-15 18:21] LABS: FERRITIN 7.8 ng/mL (23.9-336.2)
== END 2019-09-15 23:59 | disposition home or self-care (01) ==
LOC: LAB.WCP 14:38
PROVIDERS: ATTEND Physician Assistant Medical
DX: K70.30 Alcoholic cirrhosis of liver without ascites (principal); R53.83 Other fatigue; N40.0 Benign prostatic hyperplasia without lower urinary tract symptoms; K92.2 Gastrointestinal hemorrhage, unspecified
CPT/HCPCS: 36415; 80053; 82607; 82728; 84153; 85025

== ENCOUNTER 2019-10-06 15:07 | Outpatient (CLI) | payer MEDICARE, OTHER ==
--- NOTE | 2019-10-07 10:33 | XRAY Report ---
Reason: DDD LUMBAR SPINE Procedure Date: 10/06/2019 Accession Number: [id number] / [id number] Procedure: WCP - Lumbar Spine 2 View CPT Code: Final Report FULL RESULT: EXAM: LUMBOSACRAL SPINE RADIOGRAPHY EXAM DATE: 10/06/2019 03:07 PM. CLINICAL HISTORY: Degenerative disk disease lumbar spine. COMPARISONS: LUMBAR SPINE 2 VIEW 06/24/2018 2:[address] ABDOMEN/PELVIS W/ 08/01/2019 1:56 PM. TECHNIQUE: 2 views. FINDINGS: 5 [id number] lumbar vertebral bodies. No vertebral body height collapse. No pathologic subluxation. Vertebral body osteophytic spurring and bony bridging throughout the lumbar spine. Mild disk space narrowing L5-S1. Mild hypertrophic changes at the facet articulations at L4-L5 and L5-S1. Scattered mural calcification of the abdominal aorta. Imaged portions of the sacroiliac joints appear within normal limits. Collection of calculi in the right upper quadrant of the abdomen, consistent with cholelithiasis. IMPRESSION: Mild to moderate multilevel degenerative changes, with bony bridging. No fracture or pathologic subluxation identified. RADIA
== END 2019-10-06 23:59 | disposition home or self-care (01) ==
LOC: DI.WCP 15:07
PROVIDERS: ATTEND Physician Assistant Medical
DX: M51.36 Other intervertebral disc degeneration, lumbar region (principal); M51.37 Other intervertebral disc degeneration, lumbosacral region; M47.816 Spondylosis without myelopathy or radiculopathy, lumbar region; M47.817 Spondylosis without myelopathy or radiculopathy, lumbosacral region
CPT/HCPCS: 72100

== ENCOUNTER 2020-02-22 08:00 | Outpatient (CLI) | payer MEDICARE, OTHER ==
[2020-02-22 18:37] LABS: BASOPHILS % (AUTO) 0.4 %; EOSINOPHILS # (AUTO) 0.1 10^3/uL (0.0-0.7); EOSINOPHILS % (AUTO) 1.5 %; HGB - HEMOGLOBIN 11.2 g/dL (14.0-18.0); LYMPHOCYTES # (AUTO) 0.3 10^3/uL (1.5-3.5); LYMPHOCYTES % (AUTO) 6.1 %; MEAN CORPUSCULAR HEMOGLOBIN 24.2 pg (27.0-31.0); MEAN CORPUSCULAR HGB CONC 30.4 g/dL (32.0-36.0); MEAN CORPUSCULAR VOLUME 79.5 fL (80.0-94.0); MONOCYTES # (AUTO) 0.4 10^3/uL (0.0-1.0); MONOCYTES % (AUTO) 6.8 %; NEUTROPHILS # (AUTO) 4.5 10^3/uL (1.5-6.6); NEUTROPHILS % (AUTO) 84.8 %; PLT - PLATELET COUNT 96 10^3/uL (130-450); RED BLOOD COUNT 4.63 10^6/uL (4.70-6.10); WHITE BLOOD COUNT 5.3 x10^3/uL (4.8-10.8)
[2020-02-22 18:53] LABS: INR 1.6 (0.8-1.2); PT - PROTHROMBIN TIME 17.1 secs (9.9-12.6)
[2020-02-22 18:55] LABS: ALBUMIN 3.3 g/dL (3.2-5.5); ALBUMIN/GLOBULIN RATIO 0.9 (1.0-2.2); BILIRUBIN,TOTAL 1.9 mg/dL (0.2-1.0); CALCIUM 8.5 mg/dL (8.5-10.3); CREATININE 0.8 mg/dL (0.6-1.2); TOTAL PROTEIN 6.9 g/dL (6.7-8.2)
== END 2020-02-22 23:59 | disposition home or self-care (01) ==
LOC: LAB.WCP 08:00
PROVIDERS: ATTEND Physician Assistant Medical
DX: K70.30 Alcoholic cirrhosis of liver without ascites (principal); D50.9 Iron deficiency anemia, unspecified
CPT/HCPCS: 36415; 80053; 82728; 85025; 85610

== ENCOUNTER 2020-04-29 00:15 | Outpatient (CLI) | payer MEDICARE, OTHER | END 2020-04-29 00:16 | disposition critical access hospital (66) | LOC: EMS 00:15 | PROVIDERS: ATTEND Surgery | DX: R33.9 Retention of urine, unspecified (principal); R39.89 Other symptoms and signs involving the genitourinary system; R82.998 Other abnormal findings in urine | CPT/HCPCS: A0425; A0429 ==

== ENCOUNTER 2020-04-29 00:38 | Emergency (ER) | payer MEDICARE, OTHER ==
[2020-04-29 01:22] LABS: GLUCOSE, URINE (UA) NEGATIVE (NEGATIVE); KETONES,URINE (UA) TRACE mg/dL (NEGATIVE); LEUKOCYTE ESTERASE, URINE NEGATIVE (NEGATIVE); NITRITE,URINE NEGATIVE (NEGATIVE); OCCULT BLOOD,URINE NEGATIVE (NEGATIVE); PROTEIN,URINE NEGATIVE (NEGATIVE); UROBILINOGEN,URINE >=8.0 E.U./dL (NORMAL)
[2020-04-29 01:29] LABS: BILIRUBIN,URINE NEGATIVE (NEGATIVE); CLARITY,URINE CLEAR (CLEAR); ICTOTEST,URINE NEGATIVE
--- NOTE | 2020-04-29 02:04 | ED Physician Documentation ---
PD HPI MALE - Stated complaint Stated Complaint: URINARY RETENTION - Chief complaint Chief Complaint: Abd Pain - History obtained from History obtained from: Patient - History of Present Illness Timing - onset: Enter time (10:00), Today Timing - details: Gradual onset Associated symptoms: Unable to urinate Recently seen: Not recently seen - Additional information Additional information: c/o urge to urinate but no UO associated with increasing suprapubic pain and pressure. Symptoms started 10 AM, initially was able to urinate small amounts but no UO since this evening Review of Systems Constitutional: denies: Fever, Chills, Sweats GI: denies: Abdominal Pain : reports: Unable to Void PD PAST MEDICAL HISTORY - Past Medical History Past Medical History: Yes Cardiovascular: Congestive heart failure, Hypertension Respiratory: None Endocrine/Autoimmune: Other GI: Esophageal varices, GI bleed, Cirrhosis, Other : Benign prostate hypertrophy, Other HEENT: Chronic vision loss, Chronic hearing loss Psych: Depression Musculoskeletal: Chronic back pain Derm: Psoriasis, Other Other Past Medical History: Colon CA - Past Surgical History Past Surgical History: Yes General: Colonoscopy HEENT: Cataracts - Present Medications Home Medications: Ambulatory Orders Medication Instructions Recorded Confirmed Fluticasone [Flonase] 2 sprays ANA BID 05/07/17 11/17/19 rifAXIMin [Xifaxan] 550 mg PO BID 05/07/17 04/29/20 Ondansetron Odt [Zofran] 4 mg TL Q6H PRN #10 tablet 03/28/19 04/29/20 Codeine Sulfate 1 tab PO QID PRN 11/17/19 11/17/19 Ferrous Sulfate 325 mg PO TID 11/17/19 04/29/20 Folic Acid 1 mg PO DAILY 11/17/19 04/29/20 Nystatin Cream [Mycostatin Cream] 1 applic TOP BID PRN 11/17/19 04/29/20 Potassium Chloride [Klor-Con M20] 20 meq PO BID 11/17/19 04/29/20 Spironolactone 100 - 200 tab PO BID 11/17/19 04/29/20 Tamsulosin [Flomax] 1 tab PO DAILY 11/17/19 04/29/20 - Allergies Allergies/Adverse Reactions: Allergies Allergy/AdvReac Type Severity Reaction Status Date / Time celecoxib [From Celebrex] Allergy Unknown Verified 04/29/20 01:20 levetiracetam [From Keppra] Allergy Unknown Verified 04/29/20 01:20 meloxicam [From Mobic] Allergy Unknown Verified 04/29/20 01:20 palifermin [From Kepivance] Allergy Unknown Verified 04/29/20 01:20 propranolol Allergy Unknown Verified 04/29/20 01:20 - Social History Does the pt smoke?: No Smoking Status: Never smoker Does the pt drink ETOH?: Yes Does the pt have substance abuse?: No - Immunizations Immunizations are current?: Yes Immunizations: TDAP current <10years - POLST Patient has POLST: No POLST Status: Full Code (pt report he want to be full code.) PD ED PE NORMAL - Vitals Vital signs reviewed: Yes - General General: Alert and oriented X 3, No acute distress, Well developed/nourished - Abdomen Abdomen: Soft, Other (suprapubic distention and TTP) Results - Vitals Vitals: Oxygen O2 Source Room air - Labs Labs: Laboratory Tests 04/29/20 01:05 Urine Color ORANGE Urine Clarity CLEAR Urine pH 5.0 Ur Specific [place] >=1.030 H Urine Protein NEGATIVE Urine Glucose (UA) NEGATIVE Urine Ketones TRACE Urine Occult Blood NEGATIVE Urine Nitrite NEGATIVE Urine Bilirubin NEGATIVE Urine Urobilinogen >=8.0 H Ur Leukocyte Esterase NEGATIVE Ur Microscopic Review NOT INDICATED Urine Culture Comments NOT INDICATED PD MEDICAL DECISION MAKING - ED course Complexity details: reviewed results, re-evaluated patient, considered differential, d/w patient ED course: ED RN placed ocampo catheter and patient reported resolution of symptoms after approximately 500cc total of UO into ocampo catheter. He was adamant about having the catheter taken out prior to discharge; I recommended against this and explained to him that it is likely he will go back into urinary retention. He says he has had this problem before and is aware of this risk, still insists on removal of catheter prior to d/c Departure - Departure Disposition: 01 Home, Self Care Clinical Impression: Urinary retention Condition: Good Instructions: ED Retention Urinary Male Follow-Up: Lisa Grayson PA-C [Primary Care Provider] - Discharge Date/Time: 04/29/20 02:33
[2020-04-29 02:29] VITALS: BP 136/98
== END 2020-04-29 02:33 | disposition home or self-care (01) ==
LOC: EDUNIT# → ED 00:38
DX: N40.1 Benign prostatic hyperplasia with lower urinary tract symptoms (principal); R33.8 Other retention of urine; I11.0 Hypertensive heart disease with heart failure; I50.9 Heart failure, unspecified; Z79.899 Other long term (current) drug therapy
CPT/HCPCS: 51702; 51798; 81001; 81003; 87086; 99283

== ENCOUNTER 2020-05-02 04:57 | Outpatient (CLI) | payer MEDICARE, OTHER | END 2020-05-02 04:58 | disposition critical access hospital (66) | LOC: EMS 04:57 | PROVIDERS: ATTEND Surgery | DX: R10.30 Lower abdominal pain, unspecified (principal) | CPT/HCPCS: A0425; A0429 ==

== ENCOUNTER 2020-05-02 05:16 | Emergency (ER) | payer MEDICARE, OTHER ==
--- NOTE | 2020-05-02 05:19 | ED Physician Documentation ---
PD HPI ABD PAIN - Stated complaint Stated Complaint: AB PX - History obtained from History obtained from: Patient, EMS - History of Present Illness Timing - onset: How many weeks ago (pain gradually worsening for weeks, swelling x few hours) Pain level now: 7 Quality: Pain Location: All over / everywhere (predominantly across lower abdomen) Radiation: Other (does not radiate) Improved by: Other (nothing) Worsened by: Other (no exacerbating factors) Associated symptoms: No: Fever, Nausea, Vomiting, Diarrhea, Constipation Recently seen: Emergency Dept (T+R from this ED 3 days ago for urinary retention) - Additional information Additional information: BIBA for abdominal pain. Patient says he has had gradually increasing abdominal pain x several weeks but worse over the past few hours. He says his abdomen became distended over the past few hours but says that it is usually not distended at all. He says he is being worked up for possible liver/colon cancer Review of Systems Constitutional: denies: Fever, Chills, Sweats Cardiac: reports: Reviewed and negative Respiratory: reports: Reviewed and negative GI: reports: Abdominal Pain, Abdominal Swelling. denies: Nausea, Vomiting, Constipation, Diarrhea : denies: Dysuria, Frequency Skin: denies: Rash Neurologic: denies: Generalized weakness PD PAST MEDICAL HISTORY - Past Medical History Cardiovascular: Congestive heart failure, Hypertension Respiratory: None Endocrine/Autoimmune: Other GI: Esophageal varices, GI bleed, Cirrhosis, Other : Benign prostate hypertrophy, Other HEENT: Chronic vision loss, Chronic hearing loss Psych: Depression Musculoskeletal: Chronic back pain Derm: Psoriasis, Other - Past Surgical History Past Surgical History: Yes General: Colonoscopy HEENT: Cataracts - Present Medications Home Medications: Ambulatory Orders Medication Instructions Recorded Confirmed Fluticasone [Flonase] 2 sprays ANA BID 05/07/17 11/17/19 rifAXIMin [Xifaxan] 550 mg PO BID 05/07/17 04/29/20 Ondansetron Odt [Zofran] 4 mg TL Q6H PRN #10 tablet 03/28/19 04/29/20 Codeine Sulfate 1 tab PO QID PRN 11/17/19 11/17/19 Ferrous Sulfate 325 mg PO TID 11/17/19 04/29/20 Folic Acid 1 mg PO DAILY 11/17/19 04/29/20 Nystatin Cream [Mycostatin Cream] 1 applic TOP BID PRN 11/17/19 04/29/20 Potassium Chloride [Klor-Con M20] 20 meq PO BID 11/17/19 04/29/20 Spironolactone 100 - 200 tab PO BID 11/17/19 04/29/20 Tamsulosin [Flomax] 1 tab PO DAILY 11/17/19 04/29/20 - Allergies Allergies/Adverse Reactions: Allergies Allergy/AdvReac Type Severity Reaction Status Date / Time celecoxib [From Celebrex] Allergy Unknown Verified 05/02/20 05:24 levetiracetam [From Keppra] Allergy Unknown Verified 05/02/20 05:24 meloxicam [From Mobic] Allergy Unknown Verified 05/02/20 05:24 palifermin [From Kepivance] Allergy Unknown Verified 05/02/20 05:24 propranolol Allergy Unknown Verified 05/02/20 05:24 - Social History Does the pt smoke?: No Smoking Status: Never smoker Does the pt drink ETOH?: Yes Does the pt have substance abuse?: No - Immunizations Immunizations are current?: Yes Immunizations: TDAP current <10years - POLST Patient has POLST: No POLST Status: Full Code (pt report he want to be full code.) PD ED PE NORMAL - Vitals Vital signs reviewed: Yes - General General: Alert and oriented X 3 (answers orientation questions correctly although some other answers are incorrect (for example, he says he had blood tests 3 days ago in this ED, which is incorrect. He says his abdomen is normally flat but just became distended a few hours ago whereas records in [facility] indicate this is not new)), No acute distress, Well developed/nourished - HEENT HEENT: PERRL, Moist mucous membranes, Other (no icterus) - Neck Neck: Supple, no meningeal sign - Cardiac Cardiac: RRR, No murmur - Respiratory Respiratory: No respiratory distress, Clear bilaterally - Abdomen Abdomen: Soft - Back Back: No CVA TTP - Derm Derm: Normal color, Warm and dry PD ED PE EXPANDED - Abdomen Abdomen: Distended, Tender to palpation (mild TTP across lower abdomen without rebound or guarding) Results - Vitals Vitals: Vital Signs - 24 hr 12/09/20 12/09/20 05:21 07:24 Temperature 36.5 C Heart Rate 102 H 92 Respiratory 19 17 Rate Blood Pressure 142/80 H 130/69 O2 Saturation 98 99 Oxygen O2 Source Room air - Labs Labs: Laboratory Tests 05/02/20 05/02/20 05/02/20 05:47 05:47 05:47 WBC 10.0 RBC 5.39 Hgb 12.7 L Hct 40.1 L MCV 74.4 L MCH 23.6 L MCHC 31.7 L RDW 17.6 H Plt Count 107 L MPV 9.4 Neut # (Auto) 9.0 H Lymph # (Auto) 0.2 L [place] # (Auto) 0.7 Eos # (Auto) 0.0 Baso # (Auto) 0.0 Absolute Nucleated RBC 0.00 Nucleated RBC % 0.0 PT 21.2 H INR 2.0 H APTT 32.2 Sodium 128 L Potassium 4.6 Chloride 95 L Carbon Dioxide 23 Anion Gap 10.0 BUN 15 Creatinine 1.0 Estimated GFR (MDRD) 74 L Glucose 125 H Calcium 8.6 Total Bilirubin 3.7 H AST 50 H ALT 20 Alkaline Phosphatase 31 L Ammonia Total Protein 7.2 Albumin 3.0 L Globulin 4.2 Albumin/Globulin Ratio 0.7 L Lipase 21 L 05/02/20 05:55 WBC RBC Hgb Hct MCV MCH MCHC RDW Plt Count MPV Neut # (Auto) Lymph # (Auto) [place] # (Auto) Eos # (Auto) Baso # (Auto) Absolute Nucleated RBC Nucleated RBC % PT INR APTT Sodium Potassium Chloride Carbon Dioxide Anion Gap BUN Creatinine Estimated GFR (MDRD) Glucose Calcium Total Bilirubin AST ALT Alkaline Phosphatase Ammonia 10.6 Total Protein Albumin Globulin Albumin/Globulin Ratio Lipase - Rads (name of study) CT A/P Radiology: Prelim report reviewed, See rad report PD MEDICAL DECISION MAKING - ED course Complexity details: reviewed old records, reviewed results, re-evaluated patient, considered differential, d/w patient ED course: Care of patient turned over to Dr. Bingham at end of my shift pending CT results and disposition based on results
[2020-05-02 05:51] LABS: BASOPHILS % (AUTO) 0.2 %; HGB - HEMOGLOBIN 12.7 g/dL (14.0-18.0); LYMPHOCYTES # (AUTO) 0.2 10^3/uL (1.5-3.5); LYMPHOCYTES % (AUTO) 2.1 %; MEAN CORPUSCULAR HEMOGLOBIN 23.6 pg (27.0-31.0); MEAN CORPUSCULAR HGB CONC 31.7 g/dL (32.0-36.0); MEAN CORPUSCULAR VOLUME 74.4 fL (80.0-94.0); MEAN PLATELET VOLUME 9.4 fL (7.4-11.4); MONOCYTES # (AUTO) 0.7 10^3/uL (0.0-1.0); MONOCYTES % (AUTO) 6.8 %; NEUTROPHILS % (AUTO) 90.2 %; PLT - PLATELET COUNT 107 10^3/uL (130-450); RED BLOOD COUNT 5.39 10^6/uL (4.70-6.10); RED CELL DISTRIBUTION WIDTH 17.6 % (12.0-15.0)
[2020-05-02 06:06] LABS: ALBUMIN/GLOBULIN RATIO 0.7 (1.0-2.2); BILIRUBIN,TOTAL 3.7 mg/dL (0.2-1.0); CALCIUM 8.6 mg/dL (8.5-10.3); TOTAL PROTEIN 7.2 g/dL (6.7-8.2)
[2020-05-02 06:29] LABS: PT - PROTHROMBIN TIME 21.2 secs (9.9-12.6)
[2020-05-02 06:36] LABS: PARTIAL THROMBOPLASTIN TIME 32.2 secs (24.9-33.3)
[2020-05-02] MEDS ORDERED: IOVERSOL 320 100 ML VIAL IVP ONE ×2 (06:50→07:06)
[2020-05-02] MEDS ORDERED: MORPHINE 2 MG/ML CARPUJECT IVP STA (07:18)
--- NOTE | 2020-05-02 07:19 | ED Physician Documentation ---
ED Addendum - Addendum Addendum: 05/02/20 07:19 Took sign out from Dr. Neville at shift change. Briefly this is a 70-year-old gentleman who appears to have cirrhosis who complains of lower abdominal pain starting 10 AM yesterday. He was seen and examined at the bedside. He looks comfortable. Muscle wasting consistent with cirrhosis. Distended abdomen consistent with ascites but I would not call it tense. Minimal tenderness. Palpable hard liver. CT results pending. 05/02/20 08:00 CT results reviewed, seems like the abdominal pain is likely due to a combination of the ascites, worsening in metastatic hepatocellular carcinoma and pancolitis. We discussed paracentesis but he refused, he is scared of the pr ocedure, also his coagulopathy and platelets would make this borderline. Spoke with the by phone, evidently patient had declined radiation therapy for the cancer maybe a year ago, and really does not want any treatment, but at the same time is "scared to ." He has been evaluated by hospice but it sounds like he declined that to. We discussed the findings on the CAT scan and we agreed I will put him on antibiotics. She would also like a prescription for self catheter supplies. I wrote him prescription for 20 oxycodone, Augmentin twice daily for 10 days and self catheter prescriptions. I also emailed EDUARDO Grayson. Disposition discharged home, condition stable Diagnosis Metastatic cancer Abdominal pain Pancolitis Ascites Cirrhosis 05/02/20 08:21 Patient wanted prescriptions as liquids as he has trouble swallowing so the above prescriptions were changed to morphine sulfate, 100 mg per 5 mL, 0.5 mL p.o. every 4 hours as needed for pain, 30 mL and Augmentin 400 mg / 57 mg per 5 mL, 10 mils p.o. twice daily for 10 days.
[2020-05-02] MEDS ORDERED: AMOX/CLAV 875 MG/125 MG TABLET PO STA (07:58)
--- NOTE | 2020-05-02 08:25 | CT Report ---
PROCEDURE: Abdomen/Pelvis W INDICATIONS: abd. pain CONTRAST: IV CONTRAST: Optiray 320 ml: 100 PO CONTRAST: *NO PO CONTRAST TECHNIQUE: After the administration of contrast, 5 mm thick sections acquired from the diaphragms to the sym physis. 5 mm thick coronal and sagittal reformats were acquired. For radiation dose reduction, the following was used: automated exposure control, adjustment of mA and/or kV according to patient size . COMPARISON: CT abdomen and pelvis dated 08/01/2019 FINDINGS: Image quality: Excellent. ABDOMEN: Multiple bilateral subcentimeter pulmonary nodules are new and consistent with pulmonary metastases. There is cirrhosis of the liver, with multinodular contour. Multifocal hypodense lesions are again no josé with poorly defined margins and new or more conspicuous since the prior study for example 1.1 cm lesion in the tip of the liver on image 35/3. There is marked pancreatic atrophy. Gallbladder is cont racted and there are multiple presumed calcified gallstones. Pancreas is atrophic. Kidneys are grossl y unremarkable. No hydronephrosis. Peritoneum and bowel: No bowel obstruction is seen.. No free air. Large amount of ascites. There is diffuse colonic wall thickening. The colon is relatively decompressed, which limits evaluati on. Nodes and vessels: There is a mesenteric root soft tissue mass with associated calcifications, which is slightly increased in size measuring approximately 5.2 cm diameter previously 3.9 cm. Aorta and i nferior vena cava are normal in size. Scattered vascular calcifications are present in the aorta. Miscellaneous: No ventral hernias. PELVIS: Bladder is decompressed partially therefore unremarkable Miscellaneous: No inguinal hernias or adenopathy. Bones: No suspicious bony lesions. Spondylitic changes and facet arthropathy. No vertebral body com pression fractures. IMPRESSION: Progressive hepatic metastatic disease. Interval development of pulmonary metastases since 08/01/2019 Diffuse colonic wall thickening which could reflect infectious or inflammatory pancolitis versus hypo proteinemia. Recommend clinical and laboratory correlation Slight increase in size of mesenteric root soft tissue mass with associated calcifications. Large amount of ascites, which is increased since prior study. Additional chronic and incidental findings as above. Findings are concordant with the preliminary study interpretation provided at the time of the study. Reviewed by: Brandon Mata MD on 05/02/2020 8:24 AM PST Approved by: Brandon Mata MD on 05/02/2020 8:24 AM PST Station ID: [id number]
[2020-05-02 08:28] VITALS: BP 120/69
== END 2020-05-02 08:35 | disposition home or self-care (01) ==
LOC: EDUNIT# → ED 05:16
DX: C78.7 Secondary malignant neoplasm of liver and intrahepatic bile duct (principal); C78.00 Secondary malignant neoplasm of unspecified lung; C80.1 Malignant (primary) neoplasm, unspecified; K74.60 Unspecified cirrhosis of liver; R18.8 Other ascites; K51.00 Ulcerative (chronic) pancolitis without complications; I11.0 Hypertensive heart disease with heart failure; I50.9 Heart failure, unspecified
CPT/HCPCS: 36415; 74177; 80053; 82140; 83690; 85025; 85610; 85730; 96374; 99284; A9270; Q9967

== ENCOUNTER 2020-05-14 09:00 | Outpatient (CLI) | payer MEDICARE, OTHER | END 2020-05-14 12:21 | disposition E | LOC: EMS 09:00 | PROVIDERS: ATTEND Surgery | DX: Z03.89 Encounter for observation for other suspected diseases and conditions ruled out (principal) ==

== ENCOUNTER 2020-05-15 01:57 | Outpatient (CLI) | payer MEDICARE, OTHER | END 2020-05-15 01:58 | disposition E | LOC: EMS 01:57 | PROVIDERS: ATTEND Surgery ==